=== PATIENT | female | born 1995 | race Caucasian/White ===

== ENCOUNTER 2024-01-24 06:35 | Outpatient (OUT) | payer SELFPAY ==
[2024-01-25 06:10] LABS: HBsAg Screen Negative (Negative); HIV Ab/p24 Ag Screen Non Reactive (Non Reactive); Hep B Core Ab, Tot Negative (Negative); Hepatitis B Surf Ab Quant <3.5 mIU/mL (Immunity>10)
[2024-01-26 17:09] LABS: QuantiFERON-TB Gold Plus Negative (Negative)
== END 2024-01-24 06:36 | disposition home or self-care (01) ==
LOC: LAB 06:35
PROVIDERS: PCP Family Medicine
DX: K50.80 Crohn's disease of both small and large intestine without complications (principal)
CPT/HCPCS: 36415; 86317; 86480; 86704; 87340; 87389

== ENCOUNTER 2024-12-24 09:32 | Outpatient (OUT) | payer SELFPAY ==
--- OUTSIDE RECORDS SUMMARY | 2024-12-24 09:34 | XMS_ITS | Encounter Summary ---
Author Organization [employer] Address [id number] [address] [place] [address] Care Team Providers Care Tape Librarian Name Role Phone No Pcp, No Pcp Primary Care Provider Unavailabl e Encounter Details Date Type Department Care Team (Late st Contact Info) Description 12/09/2021 Telephone [facility] [address] [place] [phone] Gracie Davis Social History Tobacco Use Types Packs/Day Years Used Date Smoking Tobacco: Never Smokeless Tobacco: Never Alcohol Use Standard Drinks/Week Comments Yes 0 (1 standard drink = 0.6 oz pure alcohol) socially 2-3 drinks on occasion Childcare Answer Date Recorded Childcare Unknown 12/04/2018 Employment Answer Date Recorded Employment Unknown 12/04/2018 Purpose - Life Answer Date Recorded Purpose and direction in life Unknown Comments No Sex and Gender Information Value Date Recorded Sex Assigned at Not on file Legal Sex Female 7:28 PM EDT Gender Identity Not on file Sexual Orientation Not on file COVID-19 Exposure Response Date Recorded In the last month, have you been in contact with someone who was confirmed or suspected to have Coronavirus / COVID-19? No / Unsure 12/09/2021 1:00 PM EDT documented as of this encounter Plan of Treatment Not on file documented as of this encounter Visit Diagnoses Not on filedocumented in this encounter Care Teams Tape Librarian Relationship Specialty Start Date End Date No Pcp, [place] [address] PCP - General Family Medicine 03/25/19 documented as of this encounter
--- OUTSIDE RECORDS SUMMARY | 2024-12-24 09:34 | XMS_ITS | Clinical Summary ---
Author Organization [facility] Address [address] [place] [address] Care Team Providers Care Prosthetic Lab Technician Name Role Phone Yohana Waldron MD Unavailable [phone] Social History Tobacco Use Types Packs/Day Years Used Date Smoking Tobacco: Never Assessed Comments Unknown Sex and Gender Information Value Date Recorded Sex Assigned at Not on file Legal Sex Female 8:00 PM EDT Gender Identity Not on file Sexual Orientation Not on file Last Filed Vital Signs Vital Sign Reading Time Taken Comments Blood Pressure 118/84 04/10/2019 12:00 PM EDT Pulse - - Temperature - - Respiratory Rate - - Oxygen Saturation - - Inhaled Oxygen Concentration - - Weight 59.9 kg (132 lb) 04/10/2019 12:00 PM EDT Height 153.7 cm (5' 0.5 ) 04/10/2019 12:00 PM ED T Body Mass Index 25.36 04/10/2019 12:00 PM EDT Plan of Treatment Not on file Care Teams Prosthetic Lab Technician Relationship Specialty Start Date End Date Yohana Waldron MD [address] [place] [address] PCP - External PCP Family Medicine 12/03/22
--- OUTSIDE RECORDS SUMMARY | 2024-12-24 09:34 | XMS_ITS | Encounter Summary ---
Author Organization [facility] Address [address] [place] [address] Care Team Providers Care Cyberathlete Name Role Phone Yohana Waldron MD Primary Care Provider + [phone] Encounter Details Date Type Department Care Team (Late Contact Info) Description 10/23/2020 Abstract [facility] [address] [place] [phone] Nehemias Mitchell MD Social History Tobacco Use Types Packs/Day Years Used Date Smoking Tobacco: Never Smokeless Tobacco: Never Alcohol Use Standard Drinks/Week Comments Yes 0 (1 standard drink = 0.6 oz pur e alcohol) rarely Comments No Sex and Gender Information Value Date Recorded Sex Assigned at Not on file Legal Sex Female 1:22 PM EDT Gender Identity Not on file Sexual Orientation Not on file COVID-19 Exposure Response Date Recorded In the last month, have you been in contact with someone who was confirmed or suspected to have Coronavirus / COVID-19? No / Unsure 10/09/2020 1:47 PM EDT documented as of this encounter Plan of Treatment Upcoming Encounters Date Type Department Care Team (Late Contact Info) Description 01/10/2025 9:15 AM EDT Office Visit [facility] Gastroenterology [address] [place] [address] [place] [phone] Geo Morales MD [address] [id number] RTC 4/5 months documented as of this encounter Visit Diagnoses Not on filedocumented in this encounter Care Teams Cyberathlete Relationship Specialty Start Date End Date Yohana Waldron MD [address] [place] [address] PCP - General Family Medicine 04/17/20 documented as of this encounter
--- OUTSIDE RECORDS SUMMARY | 2024-12-24 09:34 | XMS_ITS | Clinical Summary ---
Author Organization [employer] Address [facility] [id number] [address] [place] [address] Care Team Providers Care Sde Name Role Phone No Pcp, No Pcp Primary Care Provider Unavailabl e Allergies Active Allergy Reactions Criticality Noted Date Comments Adalimumab 01/22/2021 Penicillins 07/26/2016 Medications inFLIXimab-dyyb (INFLECTRA) 100 mg injection Infuse 5 mg/kg into a venous catheter once. Active clobetasoL (TEMOVATE) 0.05 % creamIndication s:Vulvar itching Apply 1 application topically in the morning and 1 application before bedtime. 30 g 2 Active Additional Information Patient not taking.Reported on 08/11/2023 clindamycin (CLEOCIN T) 1 % lotion APPLY TOPICALLY TO THE AFFECTED AREA DAILY NEEDED FOR IRRITATION OR RASH 3 Active clobetasoL (TEMOVATE) 0.05 % external solution MIX ENTIRE BOTTLE WITH 1LB JAR OF CERAVE AND APPLY TO AFFECTED AREAS TWICE DAILY NEEDED FOR ITCH 3 Active metroNIDAZOLE (Metrogel VaginaL) 0.75 % (37.5mg/5 gram) vaginal gelIndications: BV (bacterial vaginosis) Insert 1 applicator into the vagina in the morning. 5 g 4 Active Active Problems Problem Noted Date Diagnosed Date CC (Crohn's colitis), without complications 10/25 History of abnormal cervical Pap smear 9 Ulcerative colitis 12/04/2018 Overview (12/04/2018): Sees Dr. Daily Family History Medical History Relation Name Comments No Known Problems Father No Known Problems Mother Breast cancer Neg Hx Colon cancer Neg Hx Ovarian cancer Neg Hx Relation Name Status Comments Father Alive Mother Alive Social History Tobacco Use Types Packs/Day Years Used Date Smoking Tobacco: Never Smokeless Tobacco: Never Tobacco Cessation:Counseling Given: Not Answered Alcohol Use Standard Drinks/Week Comments Yes 0 (1 standard drink = 0.6 oz pure alcohol) socially 2-3 drinks on occasion PHQ-2 Answer Date Recorded Total Score 0 01/13/2023 Childcare Answer Date Recorded Childcare Unknown 12/04/2018 Employment Answer Date Recorded Employment Unknown 12/04/2018 Hunger Screening Answer Date Recorded Within the past 12 months we worried whether our food would run out before we got money to buy more. Never True 08/11/2023 Within the past 12 months th e food we bought just didn't last and we didn't have money to get more. Never True 08/11/2023 Purpose - Life Answer Date Recorded Purpose and direction in life Unknown Comments No Sex and Gender Information Value Date Recorded Sex Assigned at Not on file Legal Sex Female 7:28 PM EDT Gender Identity Not on file Sexual Orientation Not on file Last Filed Vital Signs Vital Sign Reading Time Taken Comments Blood Pressure 116/68 09/28/2023 11:30 AM EDT Pulse 76 08/11/2023 2:51 PM EST Temperature - - Respiratory Rate 16 12/29/2020 9:34 AM EDT Oxygen Saturation 98% 08/11/2023 2:51 PM EST Inhaled Oxygen Concentration - - Weight 61.7 kg (136 lb) 09/28/2023 11:30 AM EDT Height 149.9 cm (4' 11 ) 09/28/2023 11:30 AM EDT Body Mass Index 27.47 09/28/2023 11:30 AM EDT Plan of Treatment Health Maintenance Due Date Last Done Comments DTaP,Tdap and Td Vaccines (1 - Tdap) 2016 Depression Screening 01/14/2024 01/13/2023 Adult BMI Screening 09/27/2024 09/28/2023 Tobacco Screening 09/27/2024 09/28/2023 Influenza Vaccine 02/24/2025 Pap Smear 01/13/2026 01/13/2023, 0701/2022, 12/29/2020, Additional history exists Medical Devices Not on file Procedures Procedure Name Priority Date/Time Associated Diagnosis Comments PAP SMEAR Routine 01/13/2023 4:40 AM EDT Screening for cervical cancer from Last 3 Months or Most Recently Relevant to Health Maintenance Results * Pap Smear (01/13/2023 4:40 AM EDT) 01/13/2023 4:40 AM EDT 01/13/2023 4:41 AM EDT Narrative COPATH - 01/16/2023 12:00 PM EDT [facility] [address] [place] [address] Gynecologic Cytology Consultation Patient Name:TOY FRITZ:1995 (Age: 27)Gender:FTaken:01/13/2023Reported:01/16/2023hysician(s):JORDAN Fitch ([phone])Copy To: Rec. #:[id number]: #[id number] Final Cytologic Interpretation ThinPrep Pap Test (Cervical): Satisfactory for evaluation. A transformation zone component is present. NEGATIVE FOR INTRAEPITHELIAL LESION OR MALIGNANCY. /01/16/2023 Interpretation [place] [address], License number: [id number]. Electronically Signed Out By Karlee CHEN(ASCP) Date of Last Menstrual Period: (None Given) Other Clinical Conditions: Z12.4 Screening for malignant neoplasm of cervix Source of Specimen ThinPrep Pap Test (Cervical) Thin Prep Pap (BACK ORDER CLERK) Fee Code(s): G0145 us Vonnie ORTEGA PATHOLOGY/CYTOLOGY ORDER KELSEY Final Result COPATH from Last 3 Months or Most Recently Relevant to Health Maintenance Insurance [employer] Care Teams Sde Relationship Specialty Start Date End Date No Pcp, [place] [address] PCP - General Family Medicine 03/25/19
[2024-12-24 10:07] LABS: Hematocrit 40.8 % (36.0-48.0); Hemoglobin 13.9 g/dL (12.0-16.0); Red Blood Count 4.54 10^6/uL (4.20-5.40); White Blood Count 4.4 10^3/uL (4.0-11.0)
[2024-12-24 10:08] LABS: Immature Granulocytes Abs Auto 0.00 10^3/uL (0.00-0.03); Immature Granulocytes Pct Auto 0.0 % (0.0-0.5); Lymphocytes Absolute Auto 1.6 10^3/uL (1.2-3.8); Mean Corpuscular HGB Conc 34.1 g/dL (29.9-35.2); Mean Corpuscular Hemoglobin 30.6 pg (26.7-34.0); Mean Corpuscular Volume 89.9 fL (81.0-99.0); Platelet Count 308 10^3/uL (150-450)
[2024-12-24 10:52] LABS: Alanine Aminotransferase 16 U/L (14-59); Albumin Globulin Ratio 0.9; Albumin Level 3.6 g/dL (3.4-5.0); Alkaline Phosphatase 63 U/L (46-116); Anion Gap 10.5; Aspartate Amino Transferase 18 U/L (15-37); Blood Urea Nitrogen 15.0 mg/dL (7.0-18.0); Carbon Dioxide 29.4 mmol/L (21.0-32.0); Chloride 104 mmol/L (98-107); Estimated GFR (African America >60 (>=60 mL/min/1.73m^2); Estimated GFR (Non-African Ame >60 (>=60 mL/min/1.73m^2); Globulin 4.2 g/dL; Potassium 3.9 mmol/L (3.5-5.1); Sodium 140 mmol/L (136-145); Total Protein 7.8 g/dL (6.4-8.2)
== END 2024-12-24 09:33 | disposition home or self-care (01) ==
LOC: LAB 09:32
PROVIDERS: PCP Family Medicine; Visit Provider Internal Medicine Gastroenterology
DX: K50.80 Crohn's disease of both small and large intestine without complications (principal); R63.4 Abnormal weight loss
CPT/HCPCS: 36415; 80051; 80076; 82565; 84520; 85025

== ENCOUNTER 2025-03-21 09:03 | Outpatient (OUT) | payer SELFPAY ==
--- OUTSIDE RECORDS SUMMARY | 2025-03-21 09:08 | XMS_ITS | Clinical Summary ---
Author Organization [facility] Address [address] [place] [address] Care Team Providers Care Product Info Specialist Name Role Phone Yohana Waldron MD Unavailable [phone] Social History Tobacco Use Types Packs/Day Years [...] of Treatment Not on file Care Teams Product Info Specialist Relationship Specialty Start Date End Date Yohana Waldron MD [address] [place] [address] PCP - External PCP Family Medicine 12/03/22
--- OUTSIDE RECORDS SUMMARY | 2025-03-21 09:08 | XMS_ITS | Clinical Summary ---
Author Organization [employer] Address [facility] [id number] [address] [place] [address] Care Team Providers Care V Belt Mold Assembler And Curer Name Role Phone No Pcp, No Pcp [...] Narrative COPATH - 01/16/2023 12:00 PM EDT [facility] [address] [place] [address] Gynecologic Cytology Consultation Patient Name:TOY FRITZ:1995 (Age: 27)Gender:FTaken:01/13/2023Reported:01/16/2023hysician(s):JORDAN Fitch ([phone])Copy To: Rec. #:[id number]: #[id number] Final Cytologic Interpretation ThinPrep Pap Test (Cervical): Satisfactory for evaluation. A transformation zone component is present. NEGATIVE FOR INTRAEPITHELIAL LESION OR MALIGNANCY. /01/16/2023 Interpretation [place] [address], License number: [id number]. Electronically Signed Out By Karlee CHEN(ASCP) Date of Last Menstrual Period: (None Given) Other Clinical Conditions: Z12.4 Screening for malignant neoplasm of cervix Source of Specimen ThinPrep Pap Test (Cervical) Thin Prep Pap (SQL SERVER BI DEVELOPER) Fee Code(s): G0145 us Vonnie ORTEGA PATHOLOGY/CYTOLOGY ORDER KELSEY Final Result COPATH from Last 3 Months or Most Recently Relevant to Health Maintenance Insurance [employer] Care Teams V Belt Mold Assembler And Curer Relationship Specialty Start Date End Date No Pcp, [place] [address] PCP - General Family Medicine 03/25/19
--- OUTSIDE RECORDS SUMMARY | 2025-03-21 09:08 | XMS_ITS | Encounter Summary ---
Author Organization [facility] Address [address] [facility], [address] [place] [address] Care Team Providers Care Stacker Straightener Name Role Phone Yohana Waldron MD Primary Care Provider + [phone] Encounter Details Date Type Department Care Team (Late st Contact Info) Description 10/23/2020 Abstract [facility] [address] [facility] [address] [place] [address] Nehemias Mitchell MD Social History Tobacco Use Types Packs/Day Years Used Date Smoking Tobacco: Never Smokeless Tobacco: Never Alcohol Use Standard Drinks/Week Comments Yes 0 (1 standard drink = 0.6 oz pur e alcohol) rarely Comments No Sex and Gender Information Value Date Recorded Sex Assigned at Female 01/07/2025 10:40 AM EDT Legal Sex Female 1:22 PM EDT Gender Identity Female 01/07/2025 10:40 AM EDT Sexual Orientation Not on file COVID-19 Exposure [...] on filedocumented in this encounter Care Teams Stacker Straightener Relationship Specialty Start Date End Date Yohana Waldron MD [address] [place] [address] PCP - General Family Medicine 04/17/20 documented as of this encounter
--- OUTSIDE RECORDS SUMMARY | 2025-03-21 09:08 | XMS_ITS | Patient Health Record ---
Author Organization [facility] Address [address] [place] [address] Care Team Providers Care Video News Editor Name Role Phone Yohana Waldron Primary Care Provider Allergies Allergen (clinical drug ingredient) Drug/Non Drug Allergy documented on EMR Reaction Allergy Type Onset Date Status Humira Injection site reaction Drug Allergy Active Penicillin G Benzathine Unknown Drug Allergy Active Reason For Referral No Information Medications Medication SIG (Take, Route, Frequency, Duration) Notes Start Date End Date Status Inflectra 100 MG as directed Intravenous Active prednisoLONE 15 MG/5ML 20 ml daily for 3 days then 10 ml daily for 3 days then 5 ml daily for 3 days Orally; Duration: 9 days 08/18/2022 Not-Taking Social History Tobacco Use: Social History Observation Description Date Details (start date - stop date) Never Smoker NA - NA Tobacco Use/Smoking Question Answer Notes Patient is a nonsmoker Alcohol Screen (Audit-C) Question Answer Notes Did you have a drink contain ing alcohol in the past year? Yes How often did you have 6 or more drinks on one occasion in the past year? Never (0 point) How many drinks did you have on a typical day when you were drinking in the past year? 5 or 6 drinks (2 points) How often did you have a dri nk containing alcohol in the past year? Weekly (3 points) Points 5 Interpretation Positive Section Notes: Non-smoker, occasional ETOH Non-smoker, occasional ETOH Non-smoker, occasional ETOH Non-smoker, occasional ETOH Problems Problem Type SNOMED Code ICD Code Onset Dates Problem Status W/U Status Risk Notes Problem Ulcerative colitis (04361084) Ulcerative colitis without complications, unspecified location (K51.90) Active confirmed Plan Of Treatment No Information Insurance Providers Payer Name Payer Address Payer Phone Subscriber Number Group Number Insured Name Patient Relationship to Insured Coverage Start Date Coverage End Date [employer] [address] [address] [place] [address] [id number] Joanie Aguilar Alannah Child - Insured does not have Financial Responsibility (includes legally adopted child) 3 MMO [address] [place], [place] [id number] Sammy Phillips Natural Child - Insured does not have Financial Responsibility (includes legally adopted child) 3 Medical (General) History Medical History History ICD Code Crohn's Colitis Ulcerative Colitis Allergy to Dust Mites and tree pollen Surgical History Surgery Date(Month/Year) Colonoscopy - Dr. Daily 2016 Colonoscopy and EGD - Dr. Killian Colonoscopy - Dr. Killian 03/11/22 wisdom teeth 2017
--- OUTSIDE RECORDS SUMMARY | 2025-03-21 09:08 | XMS_ITS | Encounter Summary ---
Author Organization [facility] Address [address] [facility], [address] [place] [address] Care Team Providers Care Digital Measurement Advisor Name Role Phone Yohana Waldron MD Primary Care Provider + [phone] Encounter Details Date Type Department Care Team (Late st Contact Info) Description 03/03/2025 Abstract [facility] [place] [facility] [address] [facility] [address] [place] [phone] Geo Morales MD [address] [facility] [address] [place] [address] Social History Tobacco Use Types Packs/Day Years [...] AM EDT Sexual Orientation Not on file documented as of this encounter Plan of Treatment Not on file documented as of this encounter Visit Diagnoses Not on filedocumented in this encounter Care Teams Digital Measurement Advisor Relationship Specialty Start Date End Date Yohana Waldron MD [address] [place] [address] PCP - General Family Medicine 04/17/20 documented as of this encounter
--- OUTSIDE RECORDS SUMMARY | 2025-03-21 09:08 | XMS_ITS | Encounter Summary ---
Author Organization [employer] Address [id number] [address] [place] [address] Care Team Providers Care Plant Taxonomy Teacher Name Role Phone No Pcp, No Pcp Primary Care Provider Unavailabl e Encounter Details Date Type Department Care Team (Late st Contact Info) Description 12/09/2021 Telephone [facility] [address] [place] [phone] Gracie Davis Social History Tobacco Use Types [...] on filedocumented in this encounter Care Teams Plant Taxonomy Teacher Relationship Specialty Start Date End Date No Pcp, [place] [address] PCP - General Family Medicine 03/25/19 documented as of this encounter
--- OUTSIDE RECORDS SUMMARY | 2025-03-21 09:08 | XMS_ITS | Clinical Summary ---
Author Organization [facility] Address [address], [address] [place] [address] Care Team Providers Care Fiscal Specialist Name Role Phone Yohana Waldron MD Primary Care Provider + [phone] Allergies Active Allergy Reactions Criticality Noted Date Comments Adalimumab Other (See Comments) 01/22/2021 Redness swelling itching warm at injection site spreading beyond site Penicillins Hives 07/26/2016 Medications inFLIXimab-dyyb (INFLECTRA) 100 MG SOLRIndications: Crohn's disease of both small and large intestine without complication (HCC) INFUSE 5MG/KG (315MG) INTRAVENOUSLY EVERY 8 WEEKS 4 each 5 02/16/20 23 Active inFLIXimab (REMICADE) 100 MG injection Infuse 30 mLs intravenously See Admin Instructions Every 8 weeks 1 each 4 12/02/19 24 Active Active Problems Patient Care Coordination No te Formatting of this note migh t be different from the original. DR. MITCHELL GI Problem Noted Date Diagnosed Date Weight loss 07/25/2024 Crohn's disease of both smal l and large intestine without complication 07/25/2024 IUD (intrauterine device) in place 12/31/2021 Overview (03/11/2022): Kyleena inserted 12/04/18 by Vonnie Farrell, DIRECTOR OF CATH LAB CC (Crohn's colitis), without complications 10/25 Atypical squamous cell ontiveros es of undetermined significance (ASCUS) on cervical cytology with positive 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 papilloma virus (HPV) 02/05/2019 Ulcerative colitis 12/04/2018 Overview (04/17/2020): Sees Dr. Daily Encounters Date Type Department Care Team Description 03/03/2025 Abstract [facility] [address] [place] [address] Geo Morales MD 03/03/2025 Abstract [facility] [address] [place], [place] [address]e [facility] [address] [place] [address] Geo Morales MD 02/04/2025 Abstract [facility] [address] [place], [place] [address] [address] [phone] Geo Morales MD 01/21/2025 Abstract [facility] [address] [place] [phone] Geo Morales MD 01/10/2025 9:15 AM EDT Office Visit [facility] [address] [phone] Geo Morales MD Crohn's disease of both small and large intestine without complication (HCC) (Primary Dx); Weight loss; Atypical squamous cell changes of undetermined significance (ASCUS) on cervical cytology with positive 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 papilloma virus (HPV); Ulcerative colitis with complication, unspecified location (HCC); CC (Crohn's colitis), without complications (HCC) 01/07/2025 Abstract [facility] [address] [place] [phone] Geo Morales MD 01/02/2025 Abstract [facility] [address] [place] [phone] Meera Lazar PA-C from Last 3 Months Family History * Patient is adopted Medical History Relation Name Comments No Known Problems Father No Known Problems Mother Relation Name Status Comments Father Alive Mother [...] AM EDT Sexual Orientation Not on file Last Filed Vital Signs Vital Sign Reading Time Taken Comments Blood Pressure 116/73 01/10/2025 9:35 AM EDT Pulse 68 01/10/2025 9:35 AM EDT Temperature 36.4 C (97.5 F) 07/25/2024 3:33 PM EST Respiratory Rate 16 10/20/2023 9:59 AM EDT Oxygen Saturation 99% 10/20/2023 9:59 AM EDT Inhaled Oxygen Concentration - - Weight 60.8 kg (134 lb) 01/10/2025 9:35 AM EDT Height 149.9 cm (4' 11 ) 10/24/2023 3:03 PM EDT Body Mass Index 27.06 10/24/2023 3:03 PM EDT Plan of Treatment Health Maintenance Due Date Last Done Comments Depression Screen 2009 Varicella vaccine (1 of 2 - 13+ 2-dose series) 2010 HIV screen 2012 Hepatitis C screen 10/31/2015 DTaP/Tdap/Td vaccine (1 - Tdap) 2016 Hepatitis B vaccine (1 of 3 - 19+ 3-dose series) 2016 Pap smear 2018 Colonoscopy 10/05/2024 10/06/2023, 09/24, 03/11/2022, Additional history exists Colorectal Cancer Screen 10/05/2024 Flu vaccine (#1) 01/24/2025 COVID-19 Vaccine ( season) 2025 Sigmoidoscopy/CT colonography 2042 11/19/2020 HPV vaccine (No Doses Required) Completed Hepatitis A vaccine Aged Out No longe r eligible based on patient's age to complete this topic Hib vaccine Aged Out No longer eligi ble based on patient's age to complete this topic Meningococcal (ACWY) vaccine Aged Out No longer eligible based on patient's age to complete this topic Meningococcal B vaccine Aged Out No l onger eligible based on patient's age to complete this topic Pneumococcal 0-49 years Vaccine Aged Out No longer eligible based on patient's age to complete this topic Polio vaccine Aged Out No longer elig ible based on patient's age to complete this topic Procedures Procedure Name Priority Date/Time Associated Diagnosis Comments COLONOSCOPY W/ OR W/O BIOPSY Routine 10/06/2023 Crohn's disease of both small and large intestine without complication (HCC) from Last 3 Months or Most Recently Relevant to Health Maintenance Results * COLONOSCOPY W/ OR W/O BIOPSY (10/06/2023) Impressions Vicki Andersen MA - 10/06/2023 COLONOSCOPY DATE OF PROCEDURE: 10/06/2023 SURGEON: Nehemias Mitchell MD PLUMBER'S HELPER: None PREOPERATIVE DIAGNOSIS: Patient has history of Crohn's disease being treated for Remicade. Procedure performed to evaluate disease activity POSTOPERATIVE DIAGNOSIS: The disease appears to be in remission. Appears to have mild edema of the mucosa in the sigmoid colon without ulceration or mucosal friability OPERATION: Total colonoscopy, biopsies ANESTHESIA: MAC ESTIMATED BLOOD LOSS: None COMPLICATIONS: None SPECIMENS: Was Obtained: Biopsies from the right colon and transverse colon, biopsies from the sigmoid colon evaluate inflammatory bowel disease activity/Crohn's colitis HISTORY: The patient is a 27 y.o. year old female with history of above preop diagnosis. I recommended colonoscopy with possible biopsy or polypectomy and I explained the risk, benefits, expected outcome, and alternatives to the procedure. Risks included but are not limited to bleeding, infection, respiratory distress, hypotension, and perforation of the colon and possibility of missing a lesion. The patient understands and is in agreement. PROCEDURE: The patient's SPO2 remained above 90% throughout the procedure. Digital rectal exam was normal. The colonoscope was inserted through the anus into the rectum and advanced under direct vision to the cecum without difficulty. Terminal ileum was examined for approximately 2 inches. The prep was adequate. Findings: Terminal ileum: normal, examined for up to 3 inches. From anus up to the cecum examined. Mucosa in the right colon, transverse colon appears normal. However in the sigmoid colon there is edema of the mucosa noted. Polyp may be present friability, ulceration, erosions seen. Biopsies taken from the sigmoid colon as well. Has anal skin tags. Withdrawal Time was (minutes): 10 The colon was decompressed and the scope was removed. The patient tolerated the procedure without unusual events. During the procedure, the patient's blood pressure, pulse and oxygen saturation remained stable and documented. No unusual events occurred during the procedure. Patient was transferred to recovery room and will be discharged when criteria is met. Recommendations/Plan: 1. F/U Biopsies 2. F/U In Office as instructed 3. Discussed with the family 4. High fiber diet 5. Precautions to avoid constipation IBD surveillance colonoscopy basing on the symptoms -- Diagnosis -- A. RIGHT AND TRANSVERSE COLON, BIOPSIES: Minimal chronic inactive colitis. B. SIGMOID COLON, BIOPSY: Minimal chronic inactive colitis. Vincent Dela Cruz SENIOR VALIDATION ENGINEER - [employer]IM TURNING FINISHER GENERAL SURGICAL ORDERABLES Final Result from Last 3 Months or Most Recently Relevant to Health Maintenance Care Teams Fiscal Specialist Relationship Specialty Start Date End Date Yohana Waldron MD [facility] [place] [id number] PCP - General Family Medicine 04/17/20
--- OUTSIDE RECORDS SUMMARY | 2025-03-21 09:09 | XMS_ITS | CCD ---
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 Role Phone WALDRON, YOHANA A Unavailable Unavailable Rodriguez, Nelson L Unavailable Unavailable Rodriguez, Nelson L Unavailable Unavailable Waldron, Yohana A Primary Care Provider Waldron, Yohana A Primary Care Provider Waldron, Yohana A Primary Care Provider Waldron, Yohana A Primary Care Provider Waldron, Yohana A Primary Care Provider Waldron, Yohana A Primary Care Provider [phone] ANGELA YANEZ Attending Unavailable WALDRON, YOHANA A Referring Unavailable NO PCP, NO PCP Primary Care Unavailable Waldron, Yohana A Primary Care Provider [phone] VONNIE MALONEY Referring Unavailable NO PCP, NO PCP Primary Care Unavailable VONNIE MALONEY Referring Unavailable NO PCP, NO PCP Primary Care Unavailable PANGULUR, CATRACHITA N Referring Unavailable WALDRON, YOHANA A Primary Care Unavailable PANGULUR, CATRACHITA N Referring Unavailable WALDRON, YOHANA A Primary Care Unavailable PANGULUR, CATRACHITA N Referring Unavailable WALDRON, YOHANA A Primary Care Unavailable PANGULUR, CATRACHITA N Referring Unavailable WALDRON, YOHANA A Primary Care Unavailable PANGULUR, CATRACHITA N Referring Unavailable WALDRON, YOHANA A Primary Care Unavailable PANGULUR, CATRACHITA N Referring Unavailable WALDRON, YOHANA A Primary Care Unavailable PANGULUR, CATRACHITA N Referring Unavailable WALDRON, YOHANA A Primary Care Unavailable PANGULUR, CATRACHITA N Referring Unavailable WALDRON, YOHANA A Primary Care Unavailable PANGULUR, CATRACHITA N Referring Unavailable YOHANA WALDRON A Primary Care Unavailable CATRACHITA MITCHELL N Admitting Unavailable JEMMARCATRACHITA Attending Unavailable JOLENE WALDRONHER A Primary Care Unavailable FRANKIGUHARSHARCATRACHITA N Referring Unavailable WALDRON, YOHANA A Primary Care Unavailable WALDRON, YOHANA A Primary Care Unavailable WALDRON, YOHANA A Primary Care Unavailable No Pcp, No Pcp Primary Care Provider Unavailabl e Allergies Allergy Classification Reported Allergen(s) Allergy Type Date of Onset Reaction(s) Facility adalimumab (1 source) adalimumab Drug Allergy 1 RECESS. Penicillins (antibiotic) (2 sources) Penicillins Drug Allergy 7 RECESS. (8 sources) Penicillins; Translations: [PENICILLINS] Propensity to adverse reactions to drug 7 [employer] (16 sources) adalimumab; Translations: [ADALIMUMAB] Drug Allergy 1 Other (See Comments) RECESS. (9 sources) Penicillins Propensity to adverse reactions to drug 7 [employer] Work Phone: (1 source) Shellfish Propensity to adverse reactions to drug 3 [employer], [employer] Medications Current Medications Medication Drug Class(es) Dates Sig (Normalized) Sig (Original) bisacodyl 5 mg delayed release oral tablet (3 sources) Stimulant Laxative Start: 08-11-2023 bisacodyl 5 MG EC tablet Indications: Crohn's disease of both small and large intestine without complication (HCC) Please follow instructions given to you by your provider. 4 tablet 0 08/11/2023 Active Start: 04-17-2020 bisacodyl (BIS ACODYL) 5 MG EC tablet TAKE 2 TABS THE DAY BEFORE COLONOSCOPY DIRECTED ON BOWEL PREP INSTRUCTIONS GIVEN BY PHYSICIAN OFFICE 2 tablet 0 04/17/2020 Active calcium chloride 0.0014 meq/ ml / potassium chloride 0.004 meq/ml / sodium chloride 0.103 meq/ml / sodium lactate 0.028 meq/ml injectable solution (2 sources) Start: 03-11-2022 lactated ringe rs infusion Start: 05-01-2020 lactated ringe rs infusion clindamycin 10 mg/ml topical lotion (6 sources) Lincosamide Antibacterial Start: 12-19-2022 clindamycin (CLEOCIN T) 1 % lotion APPLY TOPICALLY TO THE AFFECTED AREA DAILY NEEDED FOR IRRITATION OR RASH 12/19/2022 Active clobetasol propionate 0.5 mg/ml topical solution (11 sources) Corticosteroid Start: 12-19-2022 clobetasoL (TEMOVATE) 0.05 % external solution MIX ENTIRE BOTTLE WITH 1LB JAR OF CERAVE AND APPLY TO AFFECTED AREAS TWICE DAILY NEEDED FOR ITCH 12/19/2022 Active Start: 12-31-2021 clobetasoL (TE MOVATE) 0.05 % cream Indications: Vulvar itching Apply 1 application topically in the morning and 1 application before bedtime. 30 g 12/31/2021 Active 2 ml fentaNYL 0.05 mg/ml injection (1 source) Opioid Agonist Start: 03-11-2022 fentaNYL (SUBL IMAZE) injection 25 mcg 1 ml hydrALAZINE hydrochloride 20 mg/ml injection (1 source) Arteriolar Vasodilator Start: 05-01-2020 hydrALAZINE (APRESOLINE) injection 5 mg 1 ml HYDROmorphone hydrochloride 1 mg/ml cartridge (1 source) Opioid Agonist Start: 03-11-2022 HYDROmorphone (DILAUDID) injection 0.5 mg inFLIXimab-dyyb 100 mg injection (13 sources) Tumor Necrosis Factor Duane Start: 02-15-2023 inFLIXimab-dyyb (INFLECTRA) 100 MG SOLR Indications: Crohn's disease of both small and large intestine without complication (HCC) INFUSE 5MG/KG (315MG) INTRAVENOUSLY EVERY 8 WEEKS 4 each 5 02/15/2023 Active Start: 01-19-2023 REMICADE 100 M G injection INFUSE 5MG/KG (315MG) INTO THE VEIN EVERY 8 WEEKS 0 01/19/2023 Active Start: 09-21-2022 INFLECTRA 100 MG SOLR INFUSE 5MG/KG (315MG) INTRAVENOUSLY EVERY 8 WEEKS 4 each 0 09/21/2022 Active Start: 12-14-2021 INFLECTRA 100 MG SOLR INFUSE 5MG/KG (315MG) INTRAVENOUSLY EVERY 8 WEEKS 4 each 3 12/14/2021 Active inFLIXimab-dyyb (INFLECTRA) 100 mg injection Infuse 5 mg/kg into a venous catheter once. Active 4 ml labetalol hydrochloride 5 mg/ml cartridge (1 source) beta-Adrenergic Duane Start: 05-01-2020 labetalol (NORMODYNE;TRANDATE) injection 5 mg levonorgestrel 0.442479 mg/hr intrauterine system (13 sources) Progestin, Progestin-containing Intrauterine Device Levonorgestrel (HU JAYLA) IUD 19.5 mg 1 each by IntraUTERine route once 0 Active End: 08-11-2023 levonorgestreL (KYLEENA) 17. 5 mcg/24 hrs (5 yrs) 19.5 mg intrauterine device IUD 1 each by intrauterine route once. 0 08/11/2023 Discontinued (Therapy completed) 10 ml lidocaine hydrochloride 10 mg/ml injection (2 sources) Antiarrhythmic, Amide Local Anesthetic Start: 03-11-2022 End: 03-11-2022 lidocaine PF 1 % injection 1 mL Start: 05-01-2020 End: 05-01-2020 lidocaine PF 1 % injection 1 mL mesalamine 500 mg extended release oral capsule (2 sources) Aminosalicylate Start: 05-25-2020 take 2 capsules by mouth four times daily mesalamine (PENTASA) 500 MG extended release capsule Take 2 capsules by mouth 4 times daily 120 capsule 2 05/25/2020 Active Start: 05-01-2020 take 2 capsules by m outh four times daily mesalamine (PENTASA) 500 MG extended release capsule Take 2 capsules by mouth 4 times daily 120 capsule 0 05/01/2020 Active 2 ml metoclopramide 5 mg/ml prefilled syringe (1 source) Dopamine-2 Receptor Antagonist Start: 03-11-2022 End: 03-11-2022 metoclopramide (REGLAN) injection 10 mg metroNIDAZOLE 0.0075 mg/mg vaginal gel (3 sources) Nitroimidazole Antimicrobial Start: 10-10-2023 metroNIDAZOLE (Metrogel VaginaL) 0.75 % (37.5mg/5 gram) vaginal gel Indications: BV (bacterial vaginosis) Insert 1 applicator into the vagina in the morning. 5 g 10/10/2023 Active Start: 09-30-2023 End: 10-07-2023 take 1 tablet by mouth in the morning, then take 1 tablet by mouth at bedtime metroNIDAZOLE (FLAGYL) 500 mg tablet Indications: BV (bacterial vaginosis) Take 1 tablet (500 mg total) by mouth in the morning and 1 tablet (500 mg total) before bedtime. Do all this for 7 days. 14 tablet 0 09/30/2023 10/07/2023 Active 2 ml ondansetron 2 mg/ml injection (2 sources) Serotonin-3 Receptor Antagonist Start: 03-11-2022 End: 03-11-2022 ondansetron (ZOFRAN) injection 4 mg Start: 05-01-2020 End: 05-01-2020 ondansetron (ZOFRAN) injecti on 4 mg polyethylene glycol 3350 [id number] mg powder for oral solution (3 sources) Osmotic Laxative Start: 08-11-2023 polyethylene glycol (GLYCOLAX) 17 GM/SCOOP powder Indications: Crohn's disease of both small and large intestine without complication (HCC) Please follow instructions provided to you by your provider. 238 g 0 08/11/2023 Active Start: 04-17-2020 polyethylene g lycol (MIRALAX) 17 GM/SCOOP powder Use as Directed per instructions provided by physician office. 238 g 0 04/17/2020 Active 1 ml promethazine hydrochloride 25 mg/ml injection (1 source) Phenothiazine Start: 05-01-2020 End: 05-01-2020 promethazine (PHENERGAN) injection 6.25 mg 5 ml sodium chloride 9 mg/ml injection (15 sources) Start: 03-11-2022 sodium chlorid e flush 0.9 % injection 5-40 mL Start: 03-11-2022 sodium chlorid e flush 0.9 % injection 5-40 mL Start: 03-11-2022 sodium chlorid e flush 0.9 % injection 5-40 mL Start: 03-11-2022 End: 03-11-2022 0.9 % sodium chloride infusi on Start: 01-14-2022 End: 01-14-2022 0.9 % sodium chloride infusi on Start: 03-05-2021 End: 03-05-2021 0.9 % sodium chloride infusi on Start: 02-05-2021 End: 02-05-2021 0.9 % sodium chloride infusi on Start: 10-23-2020 End: 10-23-2020 0.9 % sodium chloride bolus Start: 10-23-2020 End: 10-23-2020 sodium chloride flush 0.9 % injection 10 mL Start: 05-01-2020 End: 05-01-2020 0.9 % sodium chloride bolus Start: 05-01-2020 sodium chlorid e flush 0.9 % injection 10 mL Completed/Discontinued Medications Medication Drug Class(es) Dates Sig (Normalized) Sig (Original) acyclovir 0.05 mg/mg topical ointment (1 source) Herpesvirus Nucleoside Analog DNA Polymerase Inhibitor, Herpes Simplex Virus Nucleoside Analog DNA Polymerase Inhibitor, Herpes Zoster Virus Nucleoside Analog DNA Polymerase Inhibitor End: 05-01-2020 acyclovir (ZOVIRAX) 5 % ointment Apply topically every 4 hours Apply topically every 3 hours. 0 05/01/2020 Discontinued (Therapy completed) 1 ml diphenhydrAMINE hydrochloride 50 mg/ml cartridge (11 sources) Histamine-1 Receptor Antagonist Start: 08-25-2023 End: 08-25-2023 diphenhydrAMINE (BENADRYL) injection 25 mg Start: 11-04-2022 End: 11-04-2022 diphenhydrAMINE (BENADRYL) i njection 25 mg Start: 09-09-2022 End: 09-09-2022 diphenhydrAMINE (BENADRYL) i njection 25 mg Start: 07-15-2022 End: 07-15-2022 diphenhydrAMINE (BENADRYL) i njection 25 mg Start: 05-06-2022 End: 05-06-2022 diphenhydrAMINE (BENADRYL) i njection 25 mg Start: 03-11-2022 End: 03-11-2022 diphenhydrAMINE (BENADRYL) i njection 25 mg Start: 03-11-2022 End: 03-11-2022 diphenhydrAMINE (BENADRYL) i njection 12.5 mg Start: 01-14-2022 End: 01-14-2022 diphenhydrAMINE (BENADRYL) i njection 25 mg Start: 03-05-2021 End: 03-05-2021 diphenhydrAMINE (BENADRYL) i njection 25 mg Start: 02-05-2021 End: 02-05-2021 diphenhydrAMINE (BENADRYL) i njection 25 mg Start: 05-01-2020 End: 05-01-2020 diphenhydrAMINE (BENADRYL) i njection 12.5 mg gadoteridol (PROHANCE) injection 12 mL (1 source) Start: 10-23-2020 End: 10-23-2020 gadoteridol (PROHANCE) injection 12 mL glucagon (rdna) 1 mg injection (2 sources) Antihypoglycemic Agent Start: 10-23-2020 End: 10-23-2020 glucagon (rDNA) injection 0.3 mg Start: 10-23-2020 End: 10-23-2020 glucagon (rDNA) injection 0. 3 mg hydrocortisone 100 mg injection (9 sources) Corticosteroid Start: 08-25-2023 End: 08-25-2023 hydrocortisone sodium succinate PF (SOLU-CORTEF) injection 100 mg Start: 11-04-2022 End: 11-04-2022 hydrocortisone sodium succin ate PF (SOLU-CORTEF) injection 100 mg Start: 09-09-2022 End: 09-09-2022 hydrocortisone sodium succin ate PF (SOLU-CORTEF) injection 100 mg Start: 07-15-2022 End: 07-15-2022 hydrocortisone sodium succin ate PF (SOLU-CORTEF) injection 100 mg Start: 05-06-2022 End: 05-06-2022 hydrocortisone sodium succin ate PF (SOLU-CORTEF) injection 100 mg Start: 03-11-2022 End: 03-11-2022 hydrocortisone sodium succin ate PF (SOLU-CORTEF) injection 100 mg Start: 01-14-2022 End: 01-14-2022 hydrocortisone sodium succin ate PF (SOLU-CORTEF) injection 100 mg Start: 03-05-2021 End: 03-05-2021 hydrocortisone sodium succin ate PF (SOLU-CORTEF) injection 100 mg Start: 02-05-2021 End: 02-05-2021 hydrocortisone sodium succin ate PF (SOLU-CORTEF) injection 100 mg inFLIXimab (INFLECTRA) 300 m g in sodium chloride 0.9 % 250 mL IVPB (8 sources) Start: 11-04-2022 End: 11-04-2022 inFLIXimab (INFLECTRA) 300 m g in sodium chloride 0.9 % 250 mL IVPB Start: 09-09-2022 End: 09-09-2022 inFLIXimab (INFLECTRA) 300 m g in sodium chloride 0.9 % 250 mL IVPB Start: 07-15-2022 End: 07-15-2022 inFLIXimab (INFLECTRA) 300 m g in sodium chloride 0.9 % 250 mL IVPB Start: 05-06-2022 End: 05-06-2022 inFLIXimab (INFLECTRA) 300 m g in sodium chloride 0.9 % 250 mL IVPB Start: 03-11-2022 End: 03-11-2022 inFLIXimab (INFLECTRA) 300 m g in sodium chloride 0.9 % 250 mL IVPB Start: 01-14-2022 End: 01-14-2022 inFLIXimab (INFLECTRA) 300 m g in sodium chloride 0.9 % 250 mL IVPB Start: 03-05-2021 End: 03-05-2021 inFLIXimab (INFLECTRA) 300 m g in sodium chloride 0.9 % 250 mL IVPB Start: 02-05-2021 End: 02-05-2021 inFLIXimab (INFLECTRA) 300 m g in sodium chloride 0.9 % 250 mL IVPB inFLIXimab (REMICADE) 300 mg in sodium chloride 0.9 % 250 mL IVPB (1 source) Start: 08-25-2023 End: 08-25-2023 inFLIXimab (REMICADE) 300 mg in sodium chloride 0.9 % 250 mL IVPB Problems Active Problems Problem Classification Problem Date Documented Date Episodic/Chronic Allergic reactions (2 sources) Allergy to seafood; Translations: [Adverse reaction to food] Onset: 08-11-2023 08-11-2023 Episodic Immunizations and screening for infectious disease (2 sources) Encounter for screening for infections with a predominantly sexual mode of transmission; Translations: [Patient encounter status] Onset: 09-28-2023 09-28-2023 Episodic Other female genital disorders (1 source) Other specified noninflammatory disorders of vulva and perineum; Translations: [Other specified noninflammatory disorders of vulva and perineum] Onset: 09-28-2023 Episodic Other upper respiratory disease (1 source) Allergic rhinitis due to pollen; Translations: [Allergic rhinitis due to pollen] 08-11-2023 Chronic Other upper respiratory disease (1 source) Allergic rhinitis due to house dust mite; Translations: [Other allergic rhinitis] 08-11-2023 Chronic Regional enteritis and ulcerative colitis (20 sources) Ulcerative colitis; Translations: [Crohn's disease of small AND large intestines] Onset: 12-04-2018 04-17-2020 Chronic Unclassified (1 source) New Patient Onset: 08-11-2023 Past or Other Problems Problem Classification Problem Date Documented Date Episodic/Chronic Cancer of cervix (8 sources) Atypical squamous cells of undetermined significance on cervical Papanicolaou smear; Translations: [Atypical squamous cells of undetermined significance on cytologic smear of cervix (ASC-US)] Onset: 02-05-2019 04-17-2020 Episodic Contraceptive and procreative management (7 sources) Intrauterine contraceptive device in situ; Translations: [Presence of (intrauterine) contraceptive device] Onset: 12-31-2021 03-11-2022 Episodic E Codes: Adverse effects of medical drugs (1 source) Adverse reaction to drug; Translations: [Adverse effect of unspecified drugs, medicaments and biological substances, initial encounter] 08-11-2023 Episodic Inflammatory diseases of female pelvic organs (2 sources) Bacterial vaginosis; Translations: [Acute vaginitis] 09-30-2023 Episodic Mood disorders (5 sources) Mood disorders Onset: 01-13-2023 01-13-2023 Other female genital disorders (4 sources) Cervical atypism; Translations: [Atypical squamous cells of undetermined significance on cytologic smear of cervix (ASC-US)] Onset: 02-05-2019 04-17-2020 Episodic Other female genital disorders (5 sources) History of abnormal cervical Papanicolaou smear ; Translations: [Personal history of other diseases of the female genital tract] Onset: 02-05-2019 01-13-2023 Episodic Other female genital disorders (1 source) Lesion of vulva; Translations: [Other specified noninflammatory disorders of vulva and perineum] 09-28-2023 Episodic Unclassified (5 sources) Onset: 01-13-2023 01-13-2023 Results Test Name Value Interpretation Reference Range Facility CBC with Diffon 10-20-2023 Abs. Basophil 0.00 k/uL Normal 0.0-0.2 [facility] Comment on above: Performed By: #### L IP, CP, CDP, SED #### [facility] [address] [place] [address] Heading Pinner: Sly Scott DO Abs.Neutrophil (Seg) 2.20 k/uL Normal 1.3-9.1 [facility] Comment on above: Performed By: #### L IP, CP, CDP, SED #### [facility] [address] [place] [address]. [place] [address] Heading Pinner: Sly Scott DO Basophils/100 WBC (Bld) 1 % Normal 0-2 [facility] Comment on above: Performed By: #### L IP, CP, CDP, SED #### [facility] [address] [place] [address]. [place] [address] Heading Pinner: Sly Scott DO Eosinophils (Bld) [#/Vol] 0.00 10*3/uL Normal 0.0-0.4 [facility] Comment on above: Performed By: #### L IP, CP, CDP, SED #### [facility] [address] [place] [id number] Heading Pinner: Sly Scott DO Eosinophils/100 WBC (Bld) 1 % Normal 0-4 [facility] Comment on above: Performed By: #### L IP, CP, CDP, SED #### [facility] [address] [place] [address]. [place] [address] Heading Pinner: Sly Scott DO Erythrocyte distribution width (RBC) [Ratio] 13.6 % Normal 11.5-14.9 [facility] Comment on above: Performed By: #### L IP, CP, CDP, SED #### [facility] [address] [place] [address]. [place] [address] Heading Pinner: Sly Scott DO Hematocrit (Bld) [Volume fraction] 41.1 % Normal 36-46 [facility] Comment on above: Performed By: #### L IP, CP, CDP, SED #### [facility] [address] [place] [address] Heading Pinner: Sly Scott DO Hemoglobin (Bld) [Mass/Vol] 14.1 g/dL Normal 12.0-16.0 [facility] Comment on above: Performed By: #### L IP, CP, CDP, SED #### [facility] [place] [address] Heading Pinner: Sly Scott DO Lymphocytes (Bld) [#/Vol] 1.10 10*3/uL Normal 1.0-4.8 [facility] Comment on above: Performed By: #### L IP, CP, CDP, SED #### [facility] [address] [place], [place] [address] [place] [address] Heading Pinner: Sly Scott DO Lymphocytes/100 WBC (Bld) 29 % Normal 24-44 [facility] Comment on above: Performed By: #### L IP, CP, CDP, SED #### [facility] [address] [place] [address]. [place] [address] Heading Pinner: Sly Scott DO MCH (RBC) [Entitic mass] 31.3 pg Normal 26-34 [facility] Comment on above: Performed By: #### L IP, CP, CDP, SED #### [facility] [address] [place] [address]. [place] [address] Heading Pinner: Sly Scott DO MCHC (RBC) [Mass/Vol] 34.3 g/dL Normal 31-37 [facility] Comment on above: Performed By: #### L IP, CP, CDP, SED #### [facility] [address] [place], [place] [address] [place] [address] Heading Pinner: Sly Scott DO MCV (RBC) [Entitic vol] 91.2 fL Normal 80-100 [facility] Comment on above: Performed By: #### L IP, CP, CDP, SED #### [facility] [address] [facility] [place] [address] Heading Pinner: Sly Scott DO Monocytes (Bld) [#/Vol] 0.50 10*3/uL Normal 0.1-1.3 [facility] Comment on above: Performed By: #### L IP, CP, CDP, SED #### [facility] [address] [facility] [place] [address] Heading Pinner: Sly Soctt DO Monocytes/100 WBC (Bld) 12 % High 1-7 [facility] Comment on above: Performed By: #### L IP, CP, CDP, SED #### [facility] [address] [place] [address]. [place] [address] Heading Pinner: Sly Scott DO Neutrophil (Seg) 57 % Normal 36-66 [facility] Comment on above: Performed By: #### L IP, CP, CDP, SED #### [facility] [facility] [place] [address] Heading Pinner: Sly Scott DO Platelet mean volume (Bld) [Entitic vol] 7.4 fL Normal 6.0-12.0 [facility] Comment on above: Performed By: #### L IP, CP, CDP, SED #### [facility] [facility] [place] [address] Heading Pinner: Sly Scott DO Platelets (Bld) [#/Vol] 307 10*3/uL Normal 150-450 [facility] Comment on above: Performed By: #### L IP, CP, CDP, SED #### [facility] [facility] [place] [address] Heading Pinner: Sly Scott DO RBC (Bld) [#/Vol] 4.50 10*6/uL Normal 4.0-5.2 [facility] Comment on above: Performed By: #### L IP, CP, CDP, SED #### [facility] [address] [place] [address] Heading Pinner: Sly Scott DO WBC (Bld) [#/Vol] 3.9 10*3/uL Normal 3.5-11.0 [facility] Comment on above: Performed By: #### L IP, CP, CDP, SED #### [facility] [address] [place] [address] Heading Pinner: Sly Scott DO Comp Metabolic Profon 2023 Albumin [Mass/Vol] 4.4 g/dL Normal 3.5-5.2 [facility] Comment on above: Performed By: #### L IP, CP, CDP, SED #### [facility] [place] [address] Heading Pinner: Sly Scott DO Alkaline Phos 73 U/L Normal 35-104 [facility] Comment on above: Performed By: #### L IP, CP, CDP, SED #### [facility] [place] [address] Heading Pinner: Sly Scott DO ALT [Catalytic activity/Vol] 28 U/L Normal 5-33 [facility] Comment on above: Performed By: #### L IP, CP, CDP, SED #### [facility] [place] [address] Heading Pinner: Sly Scott DO Anion gap [Moles/Vol] 10 mmol/L Normal 9-17 [facility] Comment on above: Performed By: #### L IP, CP, CDP, SED #### [facility] [address] [place] [address] Heading Pinner: Sly Scott DO AST [Catalytic activity/Vol] 35 U/L High <32 [facility] Comment on above: Performed By: #### L IP, CP, CDP, SED #### [facility] [address] [place] [address] Heading Pinner: Sly Scott DO Bilirubin [Mass/Vol] 0.4 mg/dL Normal 0.3-1.2 [facility] Comment on above: Performed By: #### L IP, CP, CDP, SED #### [facility] [place] [address] Heading Pinner: Sly Scott DO Calcium [Mass/Vol] 9.4 mg/dL Normal 8.6-10.4 [facility] Comment on above: Performed By: #### L IP, CP, CDP, SED #### [facility] [place] [address] Heading Pinner: Sly Scott DO Chloride [Moles/Vol] 103 mmol/L Normal 98-107 [facility] [facility] Comment on above: Performed By: #### L IP, CP, CDP, SED #### [facility] [address] [facility] [place] [address] Heading Pinner: Sly Scott DO CO2 [Moles/Vol] 26 mmol/L Normal 20-31 [facility] Comment on above: Performed By: #### L IP, CP, CDP, SED #### [facility] [place] [address] Heading Pinner: Sly Scott DO Creatinine [Mass/Vol] 0.6 mg/dL Normal 0.5-0.9 [facility] Comment on above: Performed By: #### L IP, CP, CDP, SED #### [facility] [address] [place] [address]. [place] [address] Heading Pinner: Sly Scott DO GFR/1.73 sq M.predicted among non-blacks MDRD (S/P/Bld) [Vol rate/Area] mL/min/{1.73_m2} Normal >60 [facility] Comment on above: Result Comment: These results are not intended for use in patients <18 years of age. eGFR results are calculated without a race factor using the 2020 CKD-EPI equation. Careful clinical correlation is recommended, particularly when comparing to results calculated using previous equations. The CKD-EPI equation is less accurate in patients with extremes of muscle mass, extra-renal metabolism of creatine, excessive creatine ingestion, or following therapy that affects renal tubular secretion. Performed By: #### L IP, CP, CDP, SED #### [facility] [address] [place] [address]. [place] [address] Heading Pinner: Sly Scott DO Glucose [Mass/Vol] 78 mg/dL Normal 70-99 [facility] Comment on above: Performed By: #### L IP, CP, CDP, SED #### [facility] [address] [place] [address]. [place] [address] Heading Pinner: Sly Scott DO Potassium [Moles/Vol] 4.1 mmol/L Normal 3.7-5.3 [facility] Comment on above: Performed By: #### L IP, CP, CDP, SED #### [facility] [address] [place] [address]. [place] [address] Heading Pinner: Sly Scott DO Protein [Mass/Vol] 7.8 g/dL Normal 6.4-8.3 [facility] Comment on above: Performed By: #### L IP, CP, CDP, SED #### [facility] [address] [place] [address]. [place] [address] Heading Pinner: Sly Scott DO Sodium [Moles/Vol] 139 mmol/L Normal 135-144 [facility] Comment on above: Performed By: #### L IP, CP, CDP, SED #### [facility] [address] [place] [address] Heading Pinner: Sly Scott DO Urea nitrogen [Mass/Vol] 18 mg/dL Normal 6-20 [facility] Comment on above: Performed By: #### L IP, CP, CDP, SED #### [facility] [address] [place] [address] Heading Pinner: Sly Scott DO Lipaseon 10-20-2023 Lipase [Catalytic activity/Vol] 33 U/L Normal 13-60 [facility] Comment on above: Performed By: #### L IP, CP, CDP, SED #### [facility] [address] [place] [address] Heading Pinner: Sly Scott DO Sedimentation Rateon 024 Sedimentation Rate 5 mm/Hr Normal 0-20 [facility] Comment on above: Performed By: #### L IP, CP, CDP, SED #### [facility] [address] [place] [address] Heading Pinner: Sly Scott DO HCG,,Ur-POCon 10-05 HCG,,Ur-POC Negative Normal NEG [facility] Comment on above: Result Comment: HCG screen is sensitive to 25 mIU/mL. However this test may mixing picker tender lower levels of HCG. If further evaluation is needed please request quantitative HCG. Performed By: #### L IP, CP, CDP, SED #### [facility] [address] [place] [address] Heading Pinner: Sly Scott DO Surgical Pathology Reporton 10-06-2023 Surgical Pathology Report (NOTE) Path Number: [id number] -- Diagnosis -- A. RIGHT AND TRANSVERSE COLON, BIOPSIES: Minimal chronic inactive colitis. B. SIGMOID COLON, BIOPSY: Minimal chronic inactive colitis. Leatha Rhodes M.D. 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 TOY MORGAN RIGHT COLON BIOPSY AND TRANSVERSE Received in formalin are five marcelo-white tissue fragments from 0.2 to 0.4 cm and are 0.8 x 0.4 x 0.2 cm in aggregate. Entirely 1cs. B. TOY MORGAN, SIGMOID COLON BIOPSY Received in formalin are four marcelo-white tissue fragments from 0.2 to 0.4 cm and are 0.6 x 0.4 x 0.2 cm in aggregate. Entirely 1cs. jj tm Mitra Mike/mj:10/06/2023 Microscopic Description A, B. Microscopic examination performed. Processing Lab: [place] [id number] Interpretation Performed at [address] [id number] SURGICAL PATHOLOGY CONSULTATION Patient Name: TOY MORGAN [facility] Rec: [id number] [facility] ANATOMIC PATHOLOGY [address] [place] [address]. [place] [address] Normal [facility] CHLAMYDIA/GC BY PCRon 2023 CHLAMYDIA/GC BY PCR SPECIMEN SOURCE CERVIX CHLAMYDIA DNA(PCR) Negative (qualifier value) Chlamydia trachomatis not detected by nucleic acid amplification. This does not exclude the possibility of infection because results are dependent on adequate specimen collection. GONORRHOEAE DNA(PCR) Negative (qualifier value) Neisseria gonorrhoeae not detected by nucleic acid amplification. This does not exclude the possibility of infection because results are dependent on adequate specimen collection. Normal [facility] Comment on above: Performed By: #### C #### [facility] ([id number]) [address] [place] [address], [address] [place] [address] HERPES SIMPLEX VIRAL PCRon 0 09-28-2023 HERPES SIMPLEX VIRAL PCR SPECIMEN SOURCE VAGINAL LESION HERPES SIMPLEX 1 PCR Negative (qualifier value) HSV 1 DNA Not Detected HERPES SIMPLEX 2 PCR Negative (qualifier value) HSV 2 DNA Not Detected Normal [facility] Comment on above: Performed By: #### H SV12 #### [facility] ([id number]) [address] [place] [address], [address] [place] [address] VAGINITIS PANEL PCRon 2023 VAGINITIS PANEL PCR BACT. VAGINOSIS DNA Detected (qualifier value) Qualitative results are reported based on detection and quantitation of targeted organism markers which include: Lactobacillus spp. (L. crispatus and L. jensenii), Gardnerella vaginalis, Atopobium vaginae, Bacterial Vaginosis Associated Bacteria-2 (BVAB-2) and Megasphaera-1 JOSE SPECIES DNA Not detected (qualifier value) Jose species not detected include: C. albicans, C. tropicalis, C. parapsilosis or C. dubliniensis JOSE KRUSEI DNA Not detected (qualifier value) No Jose krusei detected JOSE GLABRATA DNA Not detected (qualifier value) No Jose glabrata detected TRICHOMONAS VAG DNA Not detected (qualifier value) No Trichomonas vaginalis detected NOTE BD MAX Vaginal Panel has not been evaluated for patients under 18 years old. Results for these patients should be reviewed and assessed in accordance with clinical presentation to determine patient diagnosis. Normal [facility] Comment on above: Performed By: #### V PPCR #### [facility] ([id number]) [address] [place] [address], [address] [place] [address] CBC with Auto Differentialon 08-25-2023 Atypical Lymphocytes 1 % [facility] Media [facility] Atypical Lymphocytes Absolute 0.05 k/uL [employer] [facility] Media [facility] Basophils (Bld) [#/Vol] 0.00 10*3/uL [facility] Basophils/100 WBC (Bld) 0 % 0 - 2 % [facility] Eosinophils (Bld) [#/Vol] 0.00 10*3/uL [facility] Eosinophils/100 WBC (Bld) 0 % 0 - 4 % [facility] Erythrocyte distribution width (RBC) [Ratio] 13.1 % 11.5 - 14.9 % [facility] Hematocrit (Bld) [Volume fraction] 41.7 % 36 - 46 % [facility] Hemoglobin (Bld) [Mass/Vol] 14.4 g/dL 12.0 - 16.0 g/dL [facility] Interpretation and review of laboratory results Abnormal [facility] Lymphocytes/100 WBC (Bld) 35 % 24 - 44 % [facility] Lymphocytes/100 WBC (Bld) 1.72 % [facility] MCH (RBC) [Entitic mass] 31.6 pg 26 - 34 pg [facility] MCHC (RBC) [Mass/Vol] 34.6 g/dL 31 - 3 7 g/dL [facility] MCV (RBC) [Entitic vol] 91.3 fL 80 - 100 fL [facility] Monocytes/100 WBC (Bld) 9 % High 1 - 7 % [facility] Monocytes/100 WBC (Bld) 0.44 % [facility] Morphology Richard (Bld) [Interp] ANISOCYTOSIS PRESENT [facility] Morphology Richard (Bld) [Interp] MICROCYTOSIS PRESENT [facility] Neutrophils/100 WBC (Bld) 55 % 36 - 66 % [facility] Platelet mean volume (Bld) [Entitic vol] 8.0 fL 6.0 - 12.0 fL [facility] Platelets (Bld) [#/Vol] 280 10*3/uL [facility] RBC (Bld) [#/Vol] 4.57 10*6/uL 4.0 - 5.2 m/uL [facility] Segmented neutrophils/100 WBC (Bld) 2.69 % [facility] WBC other (Bld) [#/Vol] 4.9 [facility] CBC with Diffon 08-25-2023 Abs. Atypical Lymphs 0.05 k/uL Normal [facility] Comment on above: Performed By: #### L IP, CP, CDP, SED #### [facility] [address] [place] [address] Heading Pinner: Sly Scott DO Abs. Basophil 0.00 k/uL Normal 0.0-0.2 [facility] Comment on above: Performed By: #### L IP, CP, CDP, SED #### [facility] [address] [place] [address]. [place] [address] Heading Pinner: Sly Scott DO Abs.Neutrophil (Seg) 2.69 k/uL Normal 1.3-9.1 [facility] Comment on above: Performed By: #### L IP, CP, CDP, SED #### [facility] [address] [place] [address]. [place] [address] Heading Pinner: Sly Scott DO Atypical Lymphs 1 % Normal [facility] Comment on above: Performed By: #### L IP, CP, CDP, SED #### [facility] [address] [place] [address] Heading Pinner: Sly Scott DO Basophils/100 WBC (Bld) 0 % Normal 0-2 [facility] Comment on above: Performed By: #### L IP, CP, CDP, SED #### [facility] [address] [place] [address] Heading Pinner: Sly Scott DO Eosinophils (Bld) [#/Vol] 0.00 10*3/uL Normal 0.0-0.4 [facility] Comment on above: Performed By: #### L IP, CP, CDP, SED #### [facility] [address] [place] [address] Heading Pinner: Sly Scott DO Eosinophils/100 WBC (Bld) 0 % Normal 0-4 [facility] Comment on above: Performed By: #### L IP, CP, CDP, SED #### [facility] [address] [place] [address] [place] [address] Heading Pinner: Sly Scott DO Lymphocytes (Bld) [#/Vol] 1.72 10*3/uL Normal 1.0-4.8 [facility] Comment on above: Performed By: #### L IP, CP, CDP, SED #### [facility] [place] [address] Heading Pinner: Sly Scott DO Lymphocytes/100 WBC (Bld) 35 % Normal 24-44 [facility] Comment on above: Performed By: #### L IP, CP, CDP, SED #### [facility] [address] [place] [address] Heading Pinner: Sly Scott DO Monocytes (Bld) [#/Vol] 0.44 10*3/uL Normal 0.1-1.3 [facility] Comment on above: Performed By: #### L IP, CP, CDP, SED #### [facility] [address] [place] [address] Heading Pinner: Sly Scott DO Monocytes/100 WBC (Bld) 9 % High 1-7 [facility] Comment on above: Performed By: #### L IP, CP, CDP, SED #### [facility] [address] [place] [address] Heading Pinner: Sly Scott DO Morphology Richard (Bld) [Interp] ANISOCYTOSIS PRESENT Normal [facility] Comment on above: Result Comment: MICR OCYTOSIS PRESENT Performed By: #### L IP, CP, CDP, SED #### [facility] [address] [place] [address] Heading Pinner: Sly Scott DO Neutrophil (Seg) 55 % Normal 36-66 [facility] Comment on above: Performed By: #### L IP, CP, CDP, SED #### [facility] [address] [place] [address] Heading Pinner: Sly Scott DO Erythrocyte distribution width (RBC) [Ratio] 13.1 % Normal 11.5-14.9 [facility] Comment on above: Performed By: #### L IP, CP, CDP, SED #### [facility] [place] [address] Heading Pinner: Sly Scott DO Hematocrit (Bld) [Volume fraction] 41.7 % Normal 36-46 [facility] Comment on above: Performed By: #### L IP, CP, CDP, SED #### [facility] [place] [address] Heading Pinner: Sly Scott DO Hemoglobin (Bld) [Mass/Vol] 14.4 g/dL Normal 12.0-16.0 [facility] Comment on above: Performed By: #### L IP, CP, CDP, SED #### [facility] [address] [place], [place] [address]e [facility] [place] [address] Heading Pinner: Sly Scott DO MCH (RBC) [Entitic mass] 31.6 pg Normal 26-34 [facility] Comment on above: Performed By: #### L IP, CP, CDP, SED #### [facility] [address] [place] [address]. [place] [address] Heading Pinner: Sly Scott DO MCHC (RBC) [Mass/Vol] 34.6 g/dL Normal 31-37 [facility] Comment on above: Performed By: #### L IP, CP, CDP, SED #### [facility] [place] [address] Heading Pinner: Sly Scott DO MCV (RBC) [Entitic vol] 91.3 fL Normal 80-100 [facility] Comment on above: Performed By: #### L IP, CP, CDP, SED #### [facility] [address] [facility] [place] [address] Heading Pinner: Sly Scott DO Platelet mean volume (Bld) [Entitic vol] 8.0 fL Normal 6.0-12.0 [facility] Comment on above: Performed By: #### L IP, CP, CDP, SED #### [facility] [address] [place] [address] Heading Pinner: Sly Scott DO Platelets (Bld) [#/Vol] 280 10*3/uL Normal 150-450 [facility] Comment on above: Performed By: #### L IP, CP, CDP, SED #### [facility] [place] [address] Heading Pinner: Sly Scott DO RBC (Bld) [#/Vol] 4.57 10*6/uL Normal 4.0-5.2 [facility] Comment on above: Performed By: #### L IP, CP, CDP, SED #### [facility] [place] [address] Heading Pinner: Sly Scott DO WBC (Bld) [#/Vol] 4.9 10*3/uL Normal 3.5-11.0 [facility] Comment on above: Performed By: #### L IP, CP, CDP, SED #### [facility] [place] [address] Heading Pinner: Sly Scott DO Comp Metabolic Profon 2023 Albumin [Mass/Vol] 4.3 g/dL Normal 3.5-5.2 [facility] Comment on above: Performed By: #### L IP, CP, CDP, SED #### [facility] [place] [address] Heading Pinner: Sly Scott DO Alkaline Phos 73 U/L Normal 35-104 [facility] Comment on above: Performed By: #### L IP, CP, CDP, SED #### [facility] [address] [place] [address] Heading Pinner: Sly Scott DO ALT [Catalytic activity/Vol] 22 U/L Normal 5-33 [facility] Comment on above: Performed By: #### L IP, CP, CDP, SED #### [facility] [address] [place] [address] Heading Pinner: Sly Scott DO Anion gap [Moles/Vol] 11 mmol/L Normal 9-17 [facility] Comment on above: Performed By: #### L IP, CP, CDP, SED #### [facility] [place] [address] Heading Pinner: Sly Scott DO AST [Catalytic activity/Vol] 28 U/L Normal <32 [facility] Comment on above: Performed By: #### L IP, CP, CDP, SED #### [facility] [place] [address] Heading Pinner: Sly Scott DO Bilirubin [Mass/Vol] 0.6 mg/dL Normal 0.3-1.2 [facility] Comment on above: Performed By: #### L IP, CP, CDP, SED #### [facility] [place] [address] Heading Pinner: Sly Scott DO Calcium [Mass/Vol] 9.3 mg/dL Normal 8.6-10.4 [facility] Comment on above: Performed By: #### L IP, CP, CDP, SED #### [facility] [place] [address] Heading Pinner: Sly Scott DO Chloride [Moles/Vol] 100 mmol/L Normal 98-107 [facility] Comment on above: Performed By: #### L IP, CP, CDP, SED #### [facility] [address] [place] [address] Heading Pinner: Sly Scott DO CO2 [Moles/Vol] 28 mmol/L Normal 20-31 [facility] Comment on above: Performed By: #### L IP, CP, CDP, SED #### [facility] [address] [facility] [place] [address] Heading Pinner: Sly Scott DO Creatinine [Mass/Vol] 0.7 mg/dL Normal 0.5-0.9 [facility] Comment on above: Performed By: #### L IP, CP, CDP, SED #### [facility] [address] [facility] [place] [address] Heading Pinner: Sly Scott DO GFR/1.73 sq M.predicted among non-blacks MDRD (S/P/Bld) [Vol rate/Area] mL/min/{1.73_m2} Normal >60 [facility] Comment on above: Result Comment: These results are not intended for use in patients <18 years of age. eGFR results are calculated without a race factor using the 2020 CKD-EPI equation. Careful clinical correlation is recommended, particularly when comparing to results calculated using previous equations. The CKD-EPI equation is less accurate in patients with extremes of muscle mass, extra-renal metabolism of creatine, excessive creatine ingestion, or following therapy that affects renal tubular secretion. Performed By: #### L IP, CP, CDP, SED #### [facility] [address] [facility] [place] [address] Heading Pinner: Sly Scott DO Glucose [Mass/Vol] 86 mg/dL Normal 70-99 [facility] Comment on above: Performed By: #### L IP, CP, CDP, SED #### [facility] [address] [facility] [place] [address] Heading Pinner: Sly Scott DO Potassium [Moles/Vol] 3.6 mmol/L Low 3.7-5.3 [facility] Comment on above: Performed By: #### L IP, CP, CDP, SED #### [facility] [address] [facility] [place] [address] Heading Pinner: Sly Scott DO Protein [Mass/Vol] 7.7 g/dL Normal 6.4-8.3 [facility] Comment on above: Performed By: #### L IP, CP, CDP, SED #### [facility] [place] [address] Heading Pinner: Sly Scott DO Sodium [Moles/Vol] 139 mmol/L Normal 135-144 [facility] Comment on above: Performed By: #### L IP, CP, CDP, SED #### [facility] [place] [address] Heading Pinner: Sly Scott DO Urea nitrogen [Mass/Vol] 10 mg/dL Normal 6-20 [facility] Comment on above: Performed By: #### L IP, CP, CDP, SED #### [facility] [address] [place] [address]. [place] [address] Heading Pinner: Sly Soctt DO Comprehensive Metabolic Pane kory 08-25-2023 Albumin [Mass/Vol] 4.3 g/dL 3.5 - 5.2 g/dL [facility] ALP [Catalytic activity/Vol] 73 U/L 35 - 104 U/L [facility] ALT [Catalytic activity/Vol] 22 U/L 5 - 33 U/L [facility] Anion gap [Moles/Vol] 11 mmol/L 9 - 17 mmol/L [facility] AST [Catalytic activity/Vol] 28 U/L NINF - 32 U/L [facility] Bilirubin [Mass/Vol] 0.6 mg/dL 0.3 - 1 .2 mg/dL [facility] Calcium [Mass/Vol] 9.3 mg/dL 8.6 - 10. 4 mg/dL [facility] Chloride [Moles/Vol] 100 mmol/L 98 - 10 7 mmol/L [facility] CO2 [Moles/Vol] 28 mmol/L 20 - 31 mmol/L [facility] Creatinine [Mass/Vol] 0.7 mg/dL 0.5 - 0.9 mg/dL [facility] GFR/1.73 sq M.predicted MDRD (S/P/Bld) [Vol rate/Area] - PINF [facility] Comment on above: These results are not intended for use in patients <18 years of age. eGFR results are calculated without a race factor using the 2020 CKD-EPI equation. Careful clinical correlation is recommended, particularly when comparing to results calculated using previous equations. The CKD-EPI equation is less accurate in patients with extremes of muscle mass, extra-renal metabolism of creatine, excessive creatine ingestion, or following therapy that affects renal tubular secretion. Glucose [Mass/Vol] 86 mg/dL 70 - 99 mg/dL [facility] Interpretation and review of laboratory results Abnormal [facility] Potassium [Moles/Vol] 3.6 mmol/L Low 3.7 - 5.3 mmol/L [facility] Protein [Mass/Vol] 7.7 g/dL 6.4 - 8.3 g/dL [facility] Sodium [Moles/Vol] 139 mmol/L 135 - 144 mmol/L [facility] Urea nitrogen [Mass/Vol] 10 mg/dL 6 - 20 mg/dL [facility] Lipaseon 08-25-2023 Lipase [Catalytic activity/Vol] 22 U/L Normal 13-60 [facility] Comment on above: Performed By: #### L IP, CP, CDP, SED #### [facility] [address] [place] [address] Heading Pinner: Sly Scott DO Lipase [Catalytic activity/Vol] 22 U/L 13 - 60 U/L [facility] No Panel Informationon 08-24 [facility] Sedimentation Rateon 024 Sedimentation Rate 10 mm/Hr Normal 0-20 [facility] Comment on above: Performed By: #### C P, LIP, CDP, SED #### [facility] [address] [place] [address] Heading Pinner: Sly Scott DO ESR Photometric method (Bld) [Velocity] 10 [facility] CBC with Diffon 06-30-2023 Abs. Basophil 0.00 k/uL Normal 0.0-0.2 [facility] Comment on above: Performed By: #### C NONA, CP #### [facility] [address] [place] [address] Heading Pinner: Sly Scott DO Abs.Neutrophil (Seg) 2.10 k/uL Normal 1.3-9.1 [facility] Comment on above: Performed By: #### C NONA, CP #### [facility] [address] [place] [address] Heading Pinner: Sly Scott DO Basophils/100 WBC (Bld) 1 % Normal 0-2 [facility] Comment on above: Performed By: #### C DP, CP #### [facility] [address] [place] [address] Heading Pinner: Sly Scott DO Eosinophils (Bld) [#/Vol] 0.00 10*3/uL Normal 0.0-0.4 [facility] Comment on above: Performed By: #### C DP, CP #### [facility] [address] [place] [address] Heading Pinner: Sly Scott DO Eosinophils/100 WBC (Bld) 1 % Normal 0-4 [facility] Comment on above: Performed By: #### C DP, CP #### [facility] [place] [address] Heading Pinner: Sly Scott DO Erythrocyte distribution width (RBC) [Ratio] 12.9 % Normal 11.5-14.9 [facility] Comment on above: Performed By: #### C DP, CP #### [facility] [address] [place], [place] [address] [place] [address] Heading Pinner: Sly Scott DO Hematocrit (Bld) [Volume fraction] 42.8 % Normal 36-46 [facility] Comment on above: Performed By: #### C DP, CP #### [facility] [address] [place] [address] Heading Pinner: Sly Scott DO Hemoglobin (Bld) [Mass/Vol] 14.7 g/dL Normal 12.0-16.0 [facility] Comment on above: Performed By: #### C DP, CP #### [facility] [address] [place] [address] Heading Pinner: Sly Scott DO Lymphocytes (Bld) [#/Vol] 1.00 10*3/uL Normal 1.0-4.8 [facility] Comment on above: Performed By: #### C DP, CP #### [facility] [address] [place] [address] Heading Pinner: Sly Scott DO Lymphocytes/100 WBC (Bld) 29 % Normal 24-44 [facility] Comment on above: Performed By: #### C DP, CP #### [facility] [address] [place], [place] [address] [place] [address] Heading Pinner: Sly Scott DO MCH (RBC) [Entitic mass] 32.0 pg Normal 26-34 [facility] Comment on above: Performed By: #### C DP, CP #### [facility] [place] [address] Heading Pinner: Sly Scott DO MCHC (RBC) [Mass/Vol] 34.4 g/dL Normal 31-37 [facility] Comment on above: Performed By: #### C DP, CP #### [facility] [address] [place] [address] Heading Pinner: Sly Scott DO MCV (RBC) [Entitic vol] 93.1 fL Normal 80-100 [facility] Comment on above: Performed By: #### C DP, CP #### [facility] [address] [place] [address] Heading Pinner: Sly Scott DO Monocytes (Bld) [#/Vol] 0.30 10*3/uL Normal 0.1-1.3 [facility] Comment on above: Performed By: #### C DP, CP #### [facility] [address] [place] [address] Heading Pinner: Sly Scott DO Monocytes/100 WBC (Bld) 10 % High 1-7 [facility] Comment on above: Performed By: #### C DP, CP #### [facility] [address] [place] [address] Heading Pinner: Sly Scott DO Neutrophil (Seg) 59 % Normal 36-66 [facility] Comment on above: Performed By: #### C DP, CP #### [facility] [address] [place] [address] Heading Pinner: Sly Scott DO Platelet mean volume (Bld) [Entitic vol] 8.0 fL Normal 6.0-12.0 [facility] Comment on above: Performed By: #### C DP, CP #### [facility] [address] [place] [address] Heading Pinner: Sly Scott DO Platelets (Bld) [#/Vol] 286 10*3/uL Normal 150-450 [facility] Comment on above: Performed By: #### C DP, CP #### [facility] [address] [place] [address] Heading Pinner: Sly Scott DO RBC (Bld) [#/Vol] 4.60 10*6/uL Normal 4.0-5.2 [facility] Comment on above: Performed By: #### C DP, CP #### [facility] [address] [place] [address] Heading Pinner: Sly Scott DO WBC (Bld) [#/Vol] 3.5 10*3/uL Normal 3.5-11.0 [facility] Comment on above: Performed By: #### C DP, CP #### [facility] [address] [place] [address] Heading Pinner: Sly Scott DO Comp Metabolic Profon 2023 Albumin [Mass/Vol] 4.5 g/dL Normal 3.5-5.2 [facility] Comment on above: Performed By: #### C DP, CP #### [facility] [address] [place] [address] Heading Pinner: Sly Scott DO Alkaline Phos 75 U/L Normal 35-104 [facility] Comment on above: Performed By: #### C DP, CP #### [facility] [address] [place] [address] Heading Pinner: Sly Scott DO ALT [Catalytic activity/Vol] 33 U/L Normal 5-33 [facility] Comment on above: Performed By: #### C DP, CP #### [facility] [address] [place] [address] Heading Pinner: Sly Scott DO Anion gap [Moles/Vol] 10 mmol/L Normal 9-17 [facility] Comment on above: Performed By: #### C DP, CP #### [facility] [place] [address] Heading Pinner: Sly Scott DO AST [Catalytic activity/Vol] 37 U/L High <32 [facility] Comment on above: Performed By: #### C DP, CP #### [facility] [place] [address] Heading Pinner: Sly Scott DO Bilirubin [Mass/Vol] 0.5 mg/dL Normal 0.3-1.2 [facility] Comment on above: Performed By: #### C DP, CP #### [facility] [place] [address] Heading Pinner: Sly Scott DO Calcium [Mass/Vol] 9.5 mg/dL Normal 8.6-10.4 [facility] Comment on above: Performed By: #### C DP, CP #### [facility] [place] [address] Heading Pinner: Sly Scott DO Chloride [Moles/Vol] 102 mmol/L Normal 98-107 [facility] Comment on above: Performed By: #### C DP, CP #### [facility] [place] [address] Heading Pinner: Sly Scott DO CO2 [Moles/Vol] 29 mmol/L Normal 20-31 [facility] Comment on above: Performed By: #### C DP, CP #### [facility] [address] [place] [address] Heading Pinner: Sly Scott DO Creatinine [Mass/Vol] 0.6 mg/dL Normal 0.5-0.9 [facility] Comment on above: Performed By: #### C NONA, CP #### [facility] [address] [facility] [place] [address] Heading Pinner: Sly Scott DO GFR/1.73 sq M.predicted among non-blacks MDRD (S/P/Bld) [Vol rate/Area] mL/min/{1.73_m2} Normal >60 [facility] Comment on above: Result Comment: These results are not intended for use in patients <18 years of age. eGFR results are calculated without a race factor using the 2020 CKD-EPI equation. Careful clinical correlation is recommended, particularly when comparing to results calculated using previous equations. The CKD-EPI equation is less accurate in patients with extremes of muscle mass, extra-renal metabolism of creatine, excessive creatine ingestion, or following therapy that affects renal tubular secretion. Performed By: #### C NONA, CP #### [facility] [address] [facility] [place] [address] Heading Pinner: Sly Scott DO Glucose [Mass/Vol] 93 mg/dL Normal 70-99 [facility] Comment on above: Performed By: #### C NONA, CP #### [facility] [address] [facility] [place] [address] Heading Pinner: Sly Scott DO Potassium [Moles/Vol] 3.7 mmol/L Normal 3.7-5.3 [facility] Comment on above: Performed By: #### C NONA, CP #### [facility] [address] [facility] [place] [address] Heading Pinner: Sly Scott DO Protein [Mass/Vol] 8.2 g/dL Normal 6.4-8.3 [facility] Comment on above: Performed By: #### C DP, CP #### [facility] [address] [place] [address] Heading Pinner: Sly Scott DO Sodium [Moles/Vol] 141 mmol/L Normal 135-144 [facility] Comment on above: Performed By: #### C DP, CP #### [facility] [place] [address] Heading Pinner: Sly Scott DO Urea nitrogen [Mass/Vol] 14 mg/dL Normal 6-20 [facility] Comment on above: Performed By: #### C DP, CP #### [facility] [address] [place] [address] Heading Pinner: Sly Scott DO Lipaseon 06-30-2023 Lipase [Catalytic activity/Vol] 29 U/L Normal 13-60 [facility] Comment on above: Performed By: #### L IP, SED #### [facility] [place] [address] Heading Pinner: Sly Scott DO Sedimentation Rateon 024 Sedimentation Rate 2 mm/Hr Normal 0-20 [facility] Comment on above: Performed By: #### L IP, SED #### [facility] [place] [address] Heading Pinner: Sly Scott DO CBC with Diffon 05-05-2023 Abs. Basophil 0.00 k/uL Normal 0.0-0.2 [facility] Comment on above: Performed By: #### L IP, CP, CDP, SED #### [facility] [place] [address] Heading Pinner: Sly Scott DO Abs.Neutrophil (Seg) 2.40 k/uL Normal 1.3-9.1 [facility] Comment on above: Performed By: #### L IP, CP, CDP, SED #### [facility] [address] [place] [address] Heading Pinner: Sly Scott DO Basophils/100 WBC (Bld) 1 % Normal 0-2 [facility] Comment on above: Performed By: #### L IP, CP, CDP, SED #### [facility] [place] [address] Heading Pinner: Sly Soctt DO Eosinophils (Bld) [#/Vol] 0.00 10*3/uL Normal 0.0-0.4 [facility] Comment on above: Performed By: #### L IP, CP, CDP, SED #### [facility] [facility] [place] [address] Heading Pinner: Sly Scott DO Eosinophils/100 WBC (Bld) 1 % Normal 0-4 [facility] Comment on above: Performed By: #### L IP, CP, CDP, SED #### [facility] [facility] [place] [address] Heading Pinner: Sly Scott DO Erythrocyte distribution width (RBC) [Ratio] 12.9 % Normal 11.5-14.9 [facility] Comment on above: Performed By: #### L IP, CP, CDP, SED #### [facility] [facility] [place] [address] Heading Pinner: Sly Scott DO Hematocrit (Bld) [Volume fraction] 39.8 % Normal 36-46 [facility] Comment on above: Performed By: #### L IP, CP, CDP, SED #### [facility] [facility] [place] [address] Heading Pinner: Sly Scott DO Hemoglobin (Bld) [Mass/Vol] 13.8 g/dL Normal 12.0-16.0 [facility] Comment on above: Performed By: #### L IP, CP, CDP, SED #### [facility] [address] [place] [address] Heading Pinner: Sly Scott DO Lymphocytes (Bld) [#/Vol] 1.30 10*3/uL Normal 1.0-4.8 [facility] Comment on above: Performed By: #### L IP, CP, CDP, SED #### [facility] [address] [place] [address] Heading Pinner: Sly Scott DO Lymphocytes/100 WBC (Bld) 31 % Normal 24-44 [facility] Comment on above: Performed By: #### L IP, CP, CDP, SED #### [facility] [address] [place] [address] Heading Pinner: Sly Scott DO MCH (RBC) [Entitic mass] 32.3 pg Normal 26-34 [facility] Comment on above: Performed By: #### L IP, CP, CDP, SED #### [facility] [address] [place] [address] Heading Pinner: Sly Scott DO MCHC (RBC) [Mass/Vol] 34.7 g/dL Normal 31-37 [facility] Comment on above: Performed By: #### L IP, CP, CDP, SED #### [facility] [address] [place] [address] Heading Pinner: Sly Scott DO MCV (RBC) [Entitic vol] 93.0 fL Normal 80-100 [facility] Comment on above: Performed By: #### L IP, CP, CDP, SED #### [facility] [address] [place] [address] Heading Pinner: Sly Scott DO Monocytes (Bld) [#/Vol] 0.50 10*3/uL Normal 0.1-1.3 [facility] Comment on above: Performed By: #### L IP, CP, CDP, SED #### [facility] [address] [place] [address] Heading Pinner: Sly Scott DO Monocytes/100 WBC (Bld) 12 % High 1-7 [facility] Comment on above: Performed By: #### L IP, CP, CDP, SED #### [facility] [place] [address] Heading Pinner: Sly Scott DO Neutrophil (Seg) 55 % Normal 36-66 [facility] Comment on above: Performed By: #### L IP, CP, CDP, SED #### [facility] [address] [place] [address] Heading Pinner: Sly Scott DO Platelet mean volume (Bld) [Entitic vol] 7.8 fL Normal 6.0-12.0 [facility] Comment on above: Performed By: #### L IP, CP, CDP, SED #### [facility] [place] [address] Heading Pinner: Sly Scott DO Platelets (Bld) [#/Vol] 275 10*3/uL Normal 150-450 [facility] Comment on above: Performed By: #### L IP, CP, CDP, SED #### [facility] [address] [place] [address] Heading Pinner: Sly Scott DO RBC (Bld) [#/Vol] 4.28 10*6/uL Normal 4.0-5.2 [facility] Comment on above: Performed By: #### L IP, CP, CDP, SED #### [facility] [address] [place] [address] Heading Pinner: Sly Scott DO WBC (Bld) [#/Vol] 4.3 10*3/uL Normal 3.5-11.0 [facility] Comment on above: Performed By: #### L IP, CP, CDP, SED #### [facility] [address] [place] [address] Heading Pinner: Sly Scott DO Comp Metabolic Profon 2022 Albumin [Mass/Vol] 4.0 g/dL Normal 3.5-5.2 [facility] Comment on above: Performed By: #### L IP, CP, CDP, SED #### [facility] [place] [address] Heading Pinner: Sly Scott DO Alkaline Phos 64 U/L Normal 35-104 [facility] Comment on above: Performed By: #### L IP, CP, CDP, SED #### [facility] [place] [address] Heading Pinner: Sly Scott DO ALT [Catalytic activity/Vol] 21 U/L Normal 5-33 [facility] Comment on above: Performed By: #### L IP, CP, CDP, SED #### [facility] [place] [address] Heading Pinner: Sly Scott DO Anion gap [Moles/Vol] 8 mmol/L Low 9-17 [facility] Comment on above: Performed By: #### L IP, CP, CDP, SED #### [facility] [place] [address] Heading Pinner: Sly Scott DO AST [Catalytic activity/Vol] 27 U/L Normal <32 [facility] Comment on above: Performed By: #### L IP, CP, CDP, SED #### [facility] [address] [place] [address] Heading Pinner: Sly Scott DO Bilirubin [Mass/Vol] 0.5 mg/dL Normal 0.3-1.2 [facility] Comment on above: Performed By: #### L IP, CP, CDP, SED #### [facility] [facility] [place] [address] Heading Pinner: Sly Scott DO Calcium [Mass/Vol] 9.0 mg/dL Normal 8.6-10.4 [facility] Comment on above: Performed By: #### L IP, CP, CDP, SED #### [facility] [address] [place] [address]. [place] [address] Heading Pinner: Sly Scott DO Chloride [Moles/Vol] 102 mmol/L Normal 98-107 [facility] Comment on above: Performed By: #### L IP, CP, CDP, SED #### [facility] [address] [place] [address]. [place] [address] Heading Pinner: Sly Scott DO CO2 [Moles/Vol] 26 mmol/L Normal 20-31 [facility] Comment on above: Performed By: #### L IP, CP, CDP, SED #### [facility] [address] [place] [address]. [place] [address] Heading Pinner: Sly Scott DO Creatinine [Mass/Vol] 0.5 mg/dL Normal 0.5-0.9 [facility] Comment on above: Performed By: #### L IP, CP, CDP, SED #### [facility] [address] [place] [address] Heading Pinner: Sly Scott DO GFR/1.73 sq M.predicted among non-blacks MDRD (S/P/Bld) [Vol rate/Area] mL/min/{1.73_m2} Normal >60 [facility] Comment on above: Result Comment: These results are not intended for use in patients <18 years of age. eGFR results are calculated without a race factor using the 2020 CKD-EPI equation. Careful clinical correlation is recommended, particularly when comparing to results calculated using previous equations. The CKD-EPI equation is less accurate in patients with extremes of muscle mass, extra-renal metabolism of creatine, excessive creatine ingestion, or following therapy that affects renal tubular secretion. Performed By: #### L IP, CP, CDP, SED #### [facility] [address] [place] [address] Heading Pinner: Sly Scott DO Glucose [Mass/Vol] 86 mg/dL Normal 70-99 [facility] Comment on above: Performed By: #### L IP, CP, CDP, SED #### [facility] [place] [address] Heading Pinner: Sly Scott DO Potassium [Moles/Vol] 4.0 mmol/L Normal 3.7-5.3 [facility] Comment on above: Performed By: #### L IP, CP, CDP, SED #### [facility] [place] [address] Heading Pinner: Sly Scott DO Protein [Mass/Vol] 7.2 g/dL Normal 6.4-8.3 [facility] Comment on above: Performed By: #### L IP, CP, CDP, SED #### [facility] [facility] [place] [address] Heading Pinner: Sly Scott DO Sodium [Moles/Vol] 136 mmol/L Normal 135-144 [facility] Comment on above: Performed By: #### L IP, CP, CDP, SED #### [facility] [place] [address] Heading Pinner: Sly Scott DO Urea nitrogen [Mass/Vol] 12 mg/dL Normal 6-20 [facility] Comment on above: Performed By: #### L IP, CP, CDP, SED #### [facility] [address] [place] [address] Heading Pinner: Sly Scott DO Lipaseon 05-05-2023 Lipase [Catalytic activity/Vol] 25 U/L Normal 13-60 [facility] Comment on above: Performed By: #### L IP, CP, CDP, SED #### [facility] [place] [address] Heading Pinner: Sly Scott DO Sedimentation Rateon 023 Sedimentation Rate 6 mm/Hr Normal 0-20 [facility] Comment on above: Performed By: #### L IP, CP, CDP, SED #### [facility] [place] [address] Heading Pinner: Sly Scott DO CBC with Diffon 03-10-2023 Abs. Basophil 0.00 k/uL Normal 0.0-0.2 [facility] Comment on above: Performed By: #### L IP, CP, CDP, SED #### [facility] [place] [address] Heading Pinner: Sly Scott DO Abs.Neutrophil (Seg) 3.70 k/uL Normal 1.3-9.1 [facility] Comment on above: Performed By: #### L IP, CP, CDP, SED #### [facility] [address] [facility] [place] [address] Heading Pinner: Sly Scott DO Basophils/100 WBC (Bld) 1 % Normal 0-2 [facility] Comment on above: Performed By: #### L IP, CP, CDP, SED #### [facility] [address] [place] [address] Heading Pinner: Sly Scott DO Eosinophils (Bld) [#/Vol] 0.00 10*3/uL Normal 0.0-0.4 [facility] Comment on above: Performed By: #### L IP, CP, CDP, SED #### [facility] [address] [place] [address] Heading Pinner: Sly Scott DO Eosinophils/100 WBC (Bld) 1 % Normal 0-4 [facility] Comment on above: Performed By: #### L IP, CP, CDP, SED #### [facility] [address] [place] [address] Heading Pinner: Sly Scott DO Erythrocyte distribution width (RBC) [Ratio] 13.2 % Normal 11.5-14.9 [facility] Comment on above: Performed By: #### L IP, CP, CDP, SED #### [facility] [address] [place] [address] Heading Pinner: Sly Scott DO Hematocrit (Bld) [Volume fraction] 42.3 % Normal 36-46 [facility] Comment on above: Performed By: #### L IP, CP, CDP, SED #### [facility] [address] [place] [address] Heading Pinner: Sly Scott DO Hemoglobin (Bld) [Mass/Vol] 14.3 g/dL Normal 12.0-16.0 [facility] Comment on above: Performed By: #### L IP, CP, CDP, SED #### [facility] [address] [place], [place] [address] [place] [address] Heading Pinner: lSy Scott DO Lymphocytes (Bld) [#/Vol] 1.20 10*3/uL Normal 1.0-4.8 [facility] Comment on above: Performed By: #### L IP, CP, CDP, SED #### [facility] [address] [place] [address] Heading Pinner: Sly Scott DO Lymphocytes/100 WBC (Bld) 22 % Low 24-44 [facility] Comment on above: Performed By: #### L IP, CP, CDP, SED #### [facility] [address] [place] [address] Heading Pinner: Sly Scott DO MCH (RBC) [Entitic mass] 31.4 pg Normal 26-34 [facility] Comment on above: Performed By: #### L IP, CP, CDP, SED #### [facility] [address] [place] [address] Heading Pinner: Sly Scott DO MCHC (RBC) [Mass/Vol] 33.8 g/dL Normal 31-37 [facility] Comment on above: Performed By: #### L IP, CP, CDP, SED #### [facility] [address] [place] [address] Heading Pinner: Sly Scott DO MCV (RBC) [Entitic vol] 92.9 fL Normal 80-100 [facility] Comment on above: Performed By: #### L IP, CP, CDP, SED #### [facility] [address] [place] [address] Heading Pinner: Sly Scott DO Monocytes (Bld) [#/Vol] 0.60 10*3/uL Normal 0.1-1.3 [facility] Comment on above: Performed By: #### L IP, CP, CDP, SED #### [facility] [address] [place] [address] Heading Pinner: Sly Scott DO Monocytes/100 WBC (Bld) 11 % High 1-7 [facility] Comment on above: Performed By: #### L IP, CP, CDP, SED #### [facility] [address] [place] [address] Heading Pinner: Sly Scott DO Neutrophil (Seg) 65 % Normal 36-66 [facility] Comment on above: Performed By: #### L IP, CP, CDP, SED #### [facility] [address] [place] [address] Heading Pinner: Sly Scott DO Platelet mean volume (Bld) [Entitic vol] 7.7 fL Normal 6.0-12.0 [facility] Comment on above: Performed By: #### L IP, CP, CDP, SED #### [facility] [place] [address] Heading Pinner: Sly Scott DO Platelets (Bld) [#/Vol] 299 10*3/uL Normal 150-450 [facility] Comment on above: Performed By: #### L IP, CP, CDP, SED #### [facility] [place] [address] Heading Pinner: Sly Scott DO RBC (Bld) [#/Vol] 4.56 10*6/uL Normal 4.0-5.2 [facility] Comment on above: Performed By: #### L IP, CP, CDP, SED #### [facility] [place] [address] Heading Pinner: Sly Scott DO WBC (Bld) [#/Vol] 5.6 10*3/uL Normal 3.5-11.0 [facility] Comment on above: Performed By: #### L IP, CP, CDP, SED #### [facility] [place] [address] Heading Pinner: Sly Scott DO Comp Metabolic Profon 2022 Albumin [Mass/Vol] 4.4 g/dL Normal 3.5-5.2 [facility] Comment on above: Performed By: #### L IP, CP, CDP, SED #### [facility] [address] [place] [address] Heading Pinner: Sly Scott DO Alkaline Phos 67 U/L Normal 35-104 [facility] Comment on above: Performed By: #### L IP, CP, CDP, SED #### [facility] [address] [place] [address] Heading Pinner: Sly Scott DO ALT [Catalytic activity/Vol] 16 U/L Normal 5-33 [facility] Comment on above: Performed By: #### L IP, CP, CDP, SED #### [facility] [address] [place] [address] Heading Pinner: Sly Scott DO Anion gap [Moles/Vol] 9 mmol/L Normal 9-17 [facility] Comment on above: Performed By: #### L IP, CP, CDP, SED #### [facility] [place] [address] Heading Pinner: Sly Scott DO AST [Catalytic activity/Vol] 24 U/L Normal <32 [facility] Comment on above: Performed By: #### L IP, CP, CDP, SED #### [facility] [address] [place] [address] Heading Pinner: Sly Scott DO Bilirubin [Mass/Vol] 0.7 mg/dL Normal 0.3-1.2 [facility] Comment on above: Performed By: #### L IP, CP, CDP, SED #### [facility] [address] [place] [address] Heading Pinner: Sly Scott DO Calcium [Mass/Vol] 9.6 mg/dL Normal 8.6-10.4 [facility] Comment on above: Performed By: #### L IP, CP, CDP, SED #### [facility] [address] [facility] [place] [address] Heading Pinner: Sly Scott DO Chloride [Moles/Vol] 102 mmol/L Normal 98-107 [facility] Comment on above: Performed By: #### L IP, CP, CDP, SED #### [facility] [address] [facility] [place] [address] Heading Pinner: Sly Scott DO CO2 [Moles/Vol] 26 mmol/L Normal 20-31 [facility] Comment on above: Performed By: #### L IP, CP, CDP, SED #### [facility] [address] [facility] [place] [address] Heading Pinner: Sly Scott DO Creatinine [Mass/Vol] 0.6 mg/dL Normal 0.5-0.9 [facility] Comment on above: Performed By: #### L IP, CP, CDP, SED #### [facility] [place] [address] Heading Pinner: Sly Scott DO GFR/1.73 sq M.predicted among non-blacks MDRD (S/P/Bld) [Vol rate/Area] mL/min/{1.73_m2} Normal >60 [facility] Comment on above: Result Comment: These results are not intended for use in patients <18 years of age. eGFR results are calculated without a race factor using the 2020 CKD-EPI equation. Careful clinical correlation is recommended, particularly when comparing to results calculated using previous equations. The CKD-EPI equation is less accurate in patients with extremes of muscle mass, extra-renal metabolism of creatine, excessive creatine ingestion, or following therapy that affects renal tubular secretion. Performed By: #### L IP, CP, CDP, SED #### [facility] [address] [place] [address] Heading Pinner: Sly Scott DO Glucose [Mass/Vol] 99 mg/dL Normal 70-99 [facility] Comment on above: Performed By: #### L IP, CP, CDP, SED #### [facility] [place] [address] Heading Pinner: Sly Scott DO Potassium [Moles/Vol] 3.9 mmol/L Normal 3.7-5.3 [facility] Comment on above: Performed By: #### L IP, CP, CDP, SED #### [facility] [place] [address] Heading Pinner: Sly Scott DO Protein [Mass/Vol] 7.8 g/dL Normal 6.4-8.3 [facility] Comment on above: Performed By: #### L IP, CP, CDP, SED #### [facility] [place] [address] Heading Pinner: Sly Scott DO Sodium [Moles/Vol] 137 mmol/L Normal 135-144 [facility] Comment on above: Performed By: #### L IP, CP, CDP, SED #### [facility] [place] [address] Heading Pinner: Sly Scott DO Urea nitrogen [Mass/Vol] 14 mg/dL Normal 6-20 [facility] Comment on above: Performed By: #### L IP, CP, CDP, SED #### [facility] [place] [address] Heading Pinner: Sly Scott DO Lipaseon 03-10-2023 Lipase [Catalytic activity/Vol] 32 U/L Normal 13-60 [facility] Comment on above: Performed By: #### L IP, CP, CDP, SED #### [facility] [place] [address] Heading Pinner: Sly Scott DO Sedimentation Rateon 03-10-2 023 Sedimentation Rate 9 mm/Hr Normal 0-20 [facility] Comment on above: Performed By: #### L IP, CP, CDP, SED #### [facility] [address] [place] [address] Heading Pinner: Sly Scott DO CBC with Diffon 01-06-2023 Abs. Basophil 0.00 k/uL Normal 0.0-0.2 [facility] Comment on above: Performed By: #### L IP, CP, CDP, SED #### [facility] [address] [place] [address] Heading Pinner: Sly Scott DO Abs.Neutrophil (Seg) 2.30 k/uL Normal 1.3-9.1 [facility] Comment on above: Performed By: #### L IP, CP, CDP, SED #### [facility] [address] [place] [address] Heading Pinner: Sly Scott DO Basophils/100 WBC (Bld) 0 % Normal 0-2 [facility] Comment on above: Performed By: #### L IP, CP, CDP, SED #### [facility] [address] [place] [address] Heading Pinner: Sly Scott DO Eosinophils (Bld) [#/Vol] 0.00 10*3/uL Normal 0.0-0.4 [facility] Comment on above: Performed By: #### L IP, CP, CDP, SED #### [facility] [address] [place] [address] Heading Pinner: Sly Scott DO Eosinophils/100 WBC (Bld) 1 % Normal 0-4 [facility] Comment on above: Performed By: #### L IP, CP, CDP, SED #### [facility] [address] [place] [address] Heading Pinner: Sly Scott DO Erythrocyte distribution width (RBC) [Ratio] 13.5 % Normal 11.5-14.9 [facility] Comment on above: Performed By: #### L IP, CP, CDP, SED #### [facility] [address] [place] [address] Heading Pinner: Sly Scott DO Hematocrit (Bld) [Volume fraction] 39.5 % Normal 36-46 [facility] Comment on above: Performed By: #### L IP, CP, CDP, SED #### [facility] [place] [address] Heading Pinner: Sly Scott DO Hemoglobin (Bld) [Mass/Vol] 13.9 g/dL Normal 12.0-16.0 [facility] Comment on above: Performed By: #### L IP, CP, CDP, SED #### [facility] [place] [address] Heading Pinner: Sly Scott DO Lymphocytes (Bld) [#/Vol] 1.30 10*3/uL Normal 1.0-4.8 [facility] Comment on above: Performed By: #### L IP, CP, CDP, SED #### [facility] [place] [address] Heading Pinner: Sly Scott DO Lymphocytes/100 WBC (Bld) 31 % Normal 24-44 [facility] Comment on above: Performed By: #### L IP, CP, CDP, SED #### [facility] [place] [address] Heading Pinner: Sly Scott DO MCH (RBC) [Entitic mass] 31.5 pg Normal 26-34 [facility] Comment on above: Performed By: #### L IP, CP, CDP, SED #### [facility] [place] [address] Heading Pinner: Sly Scott DO MCHC (RBC) [Mass/Vol] 35.0 g/dL Normal 31-37 [facility] Comment on above: Performed By: #### L IP, CP, CDP, SED #### [facility] [address] [place] [address] Heading Pinner: Sly Scott DO MCV (RBC) [Entitic vol] 89.8 fL Normal 80-100 [facility] Comment on above: Performed By: #### L IP, CP, CDP, SED #### [facility] [address] [place] [address] Heading Pinner: Sly Scott DO Monocytes (Bld) [#/Vol] 0.50 10*3/uL Normal 0.1-1.3 [facility] Comment on above: Performed By: #### L IP, CP, CDP, SED #### [facility] [address] [place] [address] Heading Pinner: Sly Scott DO Monocytes/100 WBC (Bld) 13 % High 1-7 [facility] Comment on above: Performed By: #### L IP, CP, CDP, SED #### [facility] [address] [place] [address] Heading Pinner: Sly Scott DO Neutrophil (Seg) 55 % Normal 36-66 [facility] Comment on above: Performed By: #### L IP, CP, CDP, SED #### [facility] [address] [place] [address] [place] [address] Heading Pinner: Sly Scott DO Platelet mean volume (Bld) [Entitic vol] 7.8 fL Normal 6.0-12.0 [facility] Comment on above: Performed By: #### L IP, CP, CDP, SED #### [facility] [place] [address] Heading Pinner: Sly Scott DO Platelets (Bld) [#/Vol] 285 10*3/uL Normal 150-450 [facility] Comment on above: Performed By: #### L IP, CP, CDP, SED #### [facility] [address] [place] [address] Heading Pinner: Sly Scott DO RBC (Bld) [#/Vol] 4.40 10*6/uL Normal 4.0-5.2 [facility] Comment on above: Performed By: #### L IP, CP, CDP, SED #### [facility] [place] [address] Heading Pinner: Sly Scott DO WBC (Bld) [#/Vol] 4.2 10*3/uL Normal 3.5-11.0 [facility] Comment on above: Performed By: #### L IP, CP, CDP, SED #### [facility] [address] [place] [address] Heading Pinner: Sly Scott DO Comp Metab w/Bili Pron 01-06 Albumin [Mass/Vol] 4.2 g/dL Normal 3.5-5.2 [facility] Comment on above: Performed By: #### L IP, CP, CDP, SED #### [facility] [address] [place] [address]. [place] [address] Heading Pinner: Sly Scott DO Alkaline Phos 69 U/L Normal 35-104 [facility] Comment on above: Performed By: #### L IP, CP, CDP, SED #### [facility] [address] [place] [address] Heading Pinner: Sly Scott DO ALT [Catalytic activity/Vol] 13 U/L Normal 5-33 [facility] Comment on above: Performed By: #### L IP, CP, CDP, SED #### [facility] [address] [place] [address] Heading Pinner: Sly Scott DO Anion gap [Moles/Vol] 7 mmol/L Low 9-17 [facility] Comment on above: Performed By: #### L IP, CP, CDP, SED #### [facility] [place] [address] Heading Pinner: Sly Scott DO AST [Catalytic activity/Vol] 24 U/L Normal <32 [facility] Comment on above: Performed By: #### L IP, CP, CDP, SED #### [facility] [place] [address] Heading Pinner: Sly Scott DO Bilirubin [Mass/Vol] 0.5 mg/dL Normal 0.3-1.2 [facility] Comment on above: Performed By: #### L IP, CP, CDP, SED #### [facility] [place] [address] Heading Pinner: Sly Scott DO Bilirubin, Indirect 0.3 mg/dL Normal 0.0-1.0 [facility] Comment on above: Performed By: #### L IP, CP, CDP, SED #### [facility] [place] [address] Heading Pinner: Sly Scott DO Bilirubin.indirect [Mass/Vol] 0.2 mg/dL Normal <0.3 [facility] Comment on above: Performed By: #### L IP, CP, CDP, SED #### [facility] [address] [facility] [place] [address] Heading Pinner: Sly Scott DO Calcium [Mass/Vol] 9.5 mg/dL Normal 8.6-10.4 [facility] Comment on above: Performed By: #### L IP, CP, CDP, SED #### [facility] [place] [address] Heading Pinner: Sly Scott DO Chloride [Moles/Vol] 103 mmol/L Normal 98-107 [facility] Comment on above: Performed By: #### L IP, CP, CDP, SED #### [facility] [address] [place] [address]. [place] [address] Heading Pinner: Sly Scott DO CO2 [Moles/Vol] 28 mmol/L Normal 20-31 [facility] Comment on above: Performed By: #### L IP, CP, CDP, SED #### [facility] [place] [address] Heading Pinner: Sly Scott DO Creatinine [Mass/Vol] 0.6 mg/dL Normal 0.5-0.9 [facility] Comment on above: Performed By: #### L IP, CP, CDP, SED #### [facility] [place] [address] Heading Pinner: Sly Scott DO GFR/1.73 sq M.predicted among non-blacks MDRD (S/P/Bld) [Vol rate/Area] mL/min/{1.73_m2} Normal >60 [facility] Comment on above: Result Comment: These results are not intended for use in patients <18 years of age. eGFR results are calculated without a race factor using the 2020 CKD-EPI equation. Careful clinical correlation is recommended, particularly when comparing to results calculated using previous equations. The CKD-EPI equation is less accurate in patients with extremes of muscle mass, extra-renal metabolism of creatine, excessive creatine ingestion, or following therapy that affects renal tubular secretion. Performed By: #### L IP, CP, CDP, SED #### [facility] [address] [place] [address] Heading Pinner: Sly Scott DO Glucose [Mass/Vol] 103 mg/dL High 70-99 [facility] Comment on above: Performed By: #### L IP, CP, CDP, SED #### [facility] [address] [place] [address]. [place] [address] Heading Pinner: Sly Scott DO Potassium [Moles/Vol] 3.8 mmol/L Normal 3.7-5.3 [facility] Comment on above: Performed By: #### L IP, CP, CDP, SED #### [facility] [address] [place] [address]. [place] [address] Heading Pinner: Sly Scott DO Protein [Mass/Vol] 8.1 g/dL Normal 6.4-8.3 [facility] Comment on above: Performed By: #### L IP, CP, CDP, SED #### [facility] [address] [place] [address]. [place] [address] Heading Pinner: Sly Scott DO Sodium [Moles/Vol] 138 mmol/L Normal 135-144 [facility] Comment on above: Performed By: #### L IP, CP, CDP, SED #### [facility] [address] [place] [address]. [place] [address] Heading Pinner: Sly Scott DO Urea nitrogen [Mass/Vol] 12 mg/dL Normal 6-20 [facility] Comment on above: Performed By: #### L IP, CP, CDP, SED #### [facility] [address] [place] [address] [place] [address] Heading Pinner: Sly Scott DO Lipaseon 01-06-2023 Lipase [Catalytic activity/Vol] 24 U/L Normal 13-60 [facility] Comment on above: Performed By: #### L IP, CP, CDP, SED #### [facility] [address] [place] [address] Heading Pinner: Sly Scott DO Sedimentation Rateon 023 Sedimentation Rate 7 mm/Hr Normal 0-20 [facility] Comment on above: Performed By: #### L IP, CP, CDP, SED #### [facility] [address] [place] [address] Heading Pinner: Sly Scott DO CBC WITH AUTO DIFFERENTIALon 11-04-2022 Absolute Eos # 0.00 [facility] Absolute Lymph # 1.20 [facility] Absolute Burnett # 0.60 [facility] Basophils (Bld) [#/Vol] 0.00 10*3/uL [facility] Basophils/100 WBC (Bld) 0 % 0 - 2 % [facility] Eosinophils/100 WBC (Bld) 1 % 0 - 4 % [facility] Hematocrit (Bld) [Volume fraction] 40.3 % 36 - 46 % [facility] Hemoglobin (Bld) [Mass/Vol] 14.3 g/dL 12.0 - 16.0 g/dL [facility] Interpretation and review of laboratory results Abnormal [facility] Lymphocytes/100 WBC (Bld) 25 % 24 - 44 % [facility] MCH (RBC) [Entitic mass] 31.7 pg 26 - 34 pg [facility] MCHC (RBC) [Mass/Vol] 35.4 g/dL 31 - 3 7 g/dL [facility] MCV (RBC) [Entitic vol] 89.7 fL 80 - 100 fL [facility] Monocytes/100 WBC (Bld) 13 % High 1 - 7 % [facility] Platelet distribution width (Bld) [Ratio] 13.2 % 11.5 - 14.9 % [facility] Platelet mean volume (Bld) [Entitic vol] 7.8 fL 6.0 - 12.0 fL [facility] Platelets (Bld) [#/Vol] 260 10*3/uL [facility] RBC (Bld) [#/Vol] 4.50 10*6/uL 4.0 - 5.2 m/uL [facility] Segmented neutrophils/100 WBC (Bld) 61 % 36 - 66 % [facility] Segs Absolute 2.80 [facility] WBC (Bld) [#/Vol] 4.6 10*3/uL [facility] CBC with Diffon 11-04-2022 Abs. Basophil 0.00 k/uL Normal 0.0-0.2 [facility] Comment on above: Performed By: #### L IP, CP, CDP, SED #### [facility] [place] [address] Heading Pinner: Sly Scott DO Abs.Neutrophil (Seg) 2.80 k/uL Normal 1.3-9.1 [facility] Comment on above: Performed By: #### L IP, CP, CDP, SED #### [facility] [address] [place] [address] Heading Pinner: Sly Scott DO Basophils/100 WBC (Bld) 0 % Normal 0-2 [facility] Comment on above: Performed By: #### L IP, CP, CDP, SED #### [facility] [address] [place] [phone] Heading Pinner: Sly Scott DO Eosinophils (Bld) [#/Vol] 0.00 10*3/uL Normal 0.0-0.4 [facility] Comment on above: Performed By: #### L IP, CP, CDP, SED #### [facility] [address] [place] [address] [place] [address] Heading Pinner: Sly Scott DO Eosinophils/100 WBC (Bld) 1 % Normal 0-4 [facility] Comment on above: Performed By: #### L IP, CP, CDP, SED #### [facility] [place] [address] Heading Pinner: Sly Scott DO Erythrocyte distribution width (RBC) [Ratio] 13.2 % Normal 11.5-14.9 [facility] Comment on above: Performed By: #### L IP, CP, CDP, SED #### [facility] [address] [place] [address] Heading Pinner: Sly Scott DO Hematocrit (Bld) [Volume fraction] 40.3 % Normal 36-46 [facility] Comment on above: Performed By: #### L IP, CP, CDP, SED #### [facility] [address] [place] [address] Heading Pinner: Sly Scott DO Hemoglobin (Bld) [Mass/Vol] 14.3 g/dL Normal 12.0-16.0 [facility] Comment on above: Performed By: #### L IP, CP, CDP, SED #### [facility] [address] [place] [address] Heading Pinner: Sly Scott DO Lymphocytes (Bld) [#/Vol] 1.20 10*3/uL Normal 1.0-4.8 [facility] Comment on above: Performed By: #### L IP, CP, CDP, SED #### [facility] [place] [address] Heading Pinner: Sly Scott DO Lymphocytes/100 WBC (Bld) 25 % Normal 24-44 [facility] Comment on above: Performed By: #### L IP, CP, CDP, SED #### [facility] [address] [place] [address] Heading Pinner: Sly Scott DO MCH (RBC) [Entitic mass] 31.7 pg Normal 26-34 [facility] Comment on above: Performed By: #### L IP, CP, CDP, SED #### [facility] [place] [address] Heading Pinner: Sly Scott DO MCHC (RBC) [Mass/Vol] 35.4 g/dL Normal 31-37 [facility] Comment on above: Performed By: #### L IP, CP, CDP, SED #### [facility] [address] [place] [address] Heading Pinner: Sly Scott DO MCV (RBC) [Entitic vol] 89.7 fL Normal 80-100 [facility] Comment on above: Performed By: #### L IP, CP, CDP, SED #### [facility] [address] [place] [address] Heading Pinner: Sly Scott DO Monocytes (Bld) [#/Vol] 0.60 10*3/uL Normal 0.1-1.3 [facility] Comment on above: Performed By: #### L IP, CP, CDP, SED #### [facility] [address] [place] [address] Heading Pinner: Sly Scott DO Monocytes/100 WBC (Bld) 13 % High 1-7 [facility] Comment on above: Performed By: #### L IP, CP, CDP, SED #### [facility] [address] [place] [address] Heading Pinner: Sly Scott DO Neutrophil (Seg) 61 % Normal 36-66 [facility] Comment on above: Performed By: #### L IP, CP, CDP, SED #### [facility] [address] [place] [address] Heading Pinner: Sly Scott DO Platelet mean volume (Bld) [Entitic vol] 7.8 fL Normal 6.0-12.0 [facility] Comment on above: Performed By: #### L IP, CP, CDP, SED #### [facility] [address] [place] [address] Heading Pinner: Sly Scott DO Platelets (Bld) [#/Vol] 260 10*3/uL Normal 150-450 [facility] Comment on above: Performed By: #### L IP, CP, CDP, SED #### [facility] [address] [place] [address] Heading Pinner: Sly Scott DO RBC (Bld) [#/Vol] 4.50 10*6/uL Normal 4.0-5.2 [facility] Comment on above: Performed By: #### L IP, CP, CDP, SED #### [facility] [address] [place] [address] Heading Pinner: Sly Scott DO WBC (Bld) [#/Vol] 4.6 10*3/uL Normal 3.5-11.0 [facility] Comment on above: Performed By: #### L IP, CP, CDP, SED #### [facility] [address] [facility] [place] [address] Heading Pinner: Sly Scott DO COMP METABOLIC W/ BILI JOSIAS Mendosa 11-04-2022 Albumin [Mass/Vol] 4.5 g/dL 3.5 - 5.2 g/dL [facility] ALP [Catalytic activity/Vol] 66 U/L 35 - 104 U/L [facility] ALT [Catalytic activity/Vol] 17 U/L 5 - 33 U/L [facility] Anion gap [Moles/Vol] 8 mmol/L Low 9 - 17 mmol/L [facility] AST [Catalytic activity/Vol] 26 U/L NINF - 32 U/L [facility] Bilirubin [Mass/Vol] 0.6 mg/dL 0.3 - 1 .2 mg/dL [facility] Bilirubin.direct [Mass/Vol] 0.2 mg/dL NINF - 0.3 mg/dL [facility] Bilirubin.indirect [Mass/Vol] 0.4 mg/dL 0.0 - 1.0 mg/dL [facility] Calcium [Mass/Vol] 9.5 mg/dL 8.6 - 10. 4 mg/dL [facility] Chloride [Moles/Vol] 102 mmol/L 98 - 10 7 mmol/L [facility] CO2 [Moles/Vol] 30 mmol/L 20 - 31 mmol/L [facility] Creatinine [Mass/Vol] 0.61 mg/dL 0.50 - 0.90 mg/dL [facility] GFR/1.73 sq M.predicted MDRD (S/P/Bld) [Vol rate/Area] - PINF [facility] Comment on above: These results are not intended for use in patients <18 years of age. eGFR results are calculated without a race factor using the 2020 CKD-EPI equation. Careful clinical correlation is recommended, particularly when comparing to results calculated using previous equations. The CKD-EPI equation is less accurate in patients with extremes of muscle mass, extra-renal metabolism of creatine, excessive creatine ingestion, or following therapy that affects renal tubular secretion. Glucose [Mass/Vol] 88 mg/dL 70 - 99 mg/dL [facility] Interpretation and review of laboratory results Abnormal [facility] Potassium [Moles/Vol] 3.9 mmol/L 3.7 - 5.3 mmol/L [facility] Protein [Mass/Vol] 7.8 g/dL 6.4 - 8.3 g/dL [facility] Sodium [Moles/Vol] 140 mmol/L 135 - 144 mmol/L [facility] Urea nitrogen [Mass/Vol] 14 mg/dL 6 - 20 mg/dL [facility] Comp Metab w/Bili Pron 11-04 Albumin [Mass/Vol] 4.5 g/dL Normal 3.5-5.2 [facility] Comment on above: Performed By: #### L IP, CP, CDP, SED #### [facility] [address] [place] [address] Heading Pinner: Sly Scott DO Alkaline Phos 66 U/L Normal 35-104 [facility] Comment on above: Performed By: #### L IP, CP, CDP, SED #### [facility] [address] [place] [address] Heading Pinner: Sly Scott DO ALT [Catalytic activity/Vol] 17 U/L Normal 5-33 [facility] Comment on above: Performed By: #### L IP, CP, CDP, SED #### [facility] [address] [place] [address] Heading Pinner: Sly Scott DO Anion gap [Moles/Vol] 8 mmol/L Low 9-17 [facility] Comment on above: Performed By: #### L IP, CP, CDP, SED #### [facility] [place] [address] Heading Pinner: Sly Scott DO AST [Catalytic activity/Vol] 26 U/L Normal <32 [facility] Comment on above: Performed By: #### L IP, CP, CDP, SED #### [facility] [address] [place] [address] Heading Pinner: Sly Scott DO Bilirubin [Mass/Vol] 0.6 mg/dL Normal 0.3-1.2 [facility] Comment on above: Performed By: #### L IP, CP, CDP, SED #### [facility] [address] [place] [address] Heading Pinner: Sly Scott DO Bilirubin, Indirect 0.4 mg/dL Normal 0.0-1.0 [facility] Comment on above: Performed By: #### L IP, CP, CDP, SED #### [facility] [address] [place] [address] Heading Pinner: Sly Scott DO Bilirubin.indirect [Mass/Vol] 0.2 mg/dL Normal <0.3 [facility] Comment on above: Performed By: #### L IP, CP, CDP, SED #### [facility] [place] [address] Heading Pinner: Sly Scott DO Calcium [Mass/Vol] 9.5 mg/dL Normal 8.6-10.4 [facility] Comment on above: Performed By: #### L IP, CP, CDP, SED #### [facility] [address] [place] [address]. [place] [address] Heading Pinner: Sly Scott DO Chloride [Moles/Vol] 102 mmol/L Normal 98-107 [facility] Comment on above: Performed By: #### L IP, CP, CDP, SED #### [facility] [address] [place] [address]. [place] [address] Heading Pinner: Sly Scott DO CO2 [Moles/Vol] 30 mmol/L Normal 20-31 [facility] Comment on above: Performed By: #### L IP, CP, CDP, SED #### [facility] [facility] [place] [address] Heading Pinner: Sly Scott DO Creatinine [Mass/Vol] 0.61 mg/dL Normal 0.50-0.90 [facility] Comment on above: Performed By: #### L IP, CP, CDP, SED #### [facility] [address] [place] [address]. [place] [address] Heading Pinner: Sly Scott DO GFR/1.73 sq M.predicted among non-blacks MDRD (S/P/Bld) [Vol rate/Area] mL/min/{1.73_m2} Normal >60 [facility] Comment on above: Result Comment: These results are not intended for use in patients <18 years of age. eGFR results are calculated without a race factor using the 2020 CKD-EPI equation. Careful clinical correlation is recommended, particularly when comparing to results calculated using previous equations. The CKD-EPI equation is less accurate in patients with extremes of muscle mass, extra-renal metabolism of creatine, excessive creatine ingestion, or following therapy that affects renal tubular secretion. Performed By: #### L IP, CP, CDP, SED #### [facility] [address] [place] [address]. [place] [address] Heading Pinner: Sly Scott DO Glucose [Mass/Vol] 88 mg/dL Normal 70-99 [facility] Comment on above: Performed By: #### L IP, CP, CDP, SED #### [facility] [address] [place] [address]. [place] [address] Heading Pinner: Sly Scott DO Potassium [Moles/Vol] 3.9 mmol/L Normal 3.7-5.3 [facility] Comment on above: Performed By: #### L IP, CP, CDP, SED #### [facility] [address] [place] [address]. [place] [address] Heading Pinner: Sly Scott DO Protein [Mass/Vol] 7.8 g/dL Normal 6.4-8.3 [facility] Comment on above: Performed By: #### L IP, CP, CDP, SED #### [facility] [address] [place] [address]. [place] [address] Heading Pinner: Sly Scott DO Sodium [Moles/Vol] 140 mmol/L Normal 135-144 [facility] Comment on above: Performed By: #### L IP, CP, CDP, SED #### [facility] [address] [place] [address] Heading Pinner: Sly Scott DO Urea nitrogen [Mass/Vol] 14 mg/dL Normal 6-20 [facility] Comment on above: Performed By: #### L IP, CP, CDP, SED #### [facility] [address] [place] [address] Heading Pinner: Sly Scott DO LIPASEon 11-04-2022 Lipase [Catalytic activity/Vol] 25 U/L 13 - 60 U/L [facility] Lipaseon 11-04-2022 Lipase [Catalytic activity/Vol] 25 U/L Normal 13-60 [facility] Comment on above: Performed By: #### L IP, CP, CDP, SED #### [facility] [address] [place] [address] Heading Pinner: Sly Scott DO No Panel Informationon 11-04 [facility] SEDIMENTATION RATEon 023 ESR (Bld) [Velocity] 4 mm/h [facility] Sedimentation Rateon 023 Sedimentation Rate 4 mm/Hr Normal 0-20 [facility] Comment on above: Performed By: #### L IP, CP, CDP, SED #### [facility] [address] [place] [address] Heading Pinner: Sly Scott DO CBC WITH AUTO DIFFERENTIALon 09-09-2022 Absolute Eos # 0.10 [facility] Absolute Lymph # 1.20 [facility] Absolute Burnett # 0.60 [facility] Basophils (Bld) [#/Vol] 0.00 10*3/uL [facility] Basophils/100 WBC (Bld) 1 % 0 - 2 % [facility] Eosinophils/100 WBC (Bld) 1 % 0 - 4 % [facility] Hematocrit (Bld) [Volume fraction] 40.8 % 36 - 46 % [facility] Hemoglobin (Bld) [Mass/Vol] 13.9 g/dL 12.0 - 16.0 g/dL [facility] Interpretation and review of laboratory results Abnormal [facility] Lymphocytes/100 WBC (Bld) 27 % 24 - 44 % [facility] MCH (RBC) [Entitic mass] 31.1 pg 26 - 34 pg [facility] MCHC (RBC) [Mass/Vol] 34.2 g/dL 31 - 3 7 g/dL [facility] MCV (RBC) [Entitic vol] 90.9 fL 80 - 100 fL [facility] Monocytes/100 WBC (Bld) 13 % High 1 - 7 % [facility] Platelet distribution width (Bld) [Ratio] 12.8 % 11.5 - 14.9 % [facility] Platelet mean volume (Bld) [Entitic vol] 7.5 fL 6.0 - 12.0 fL [facility] Platelets (Bld) [#/Vol] 246 10*3/uL [facility] RBC (Bld) [#/Vol] 4.49 10*6/uL 4.0 - 5.2 m/uL [facility] Segmented neutrophils/100 WBC (Bld) 58 % 36 - 66 % [facility] Segs Absolute 2.60 [facility] WBC (Bld) [#/Vol] 4.4 10*3/uL [facility] COMP METABOLIC W/ BILI PROFI Navya 09-09-2022 Albumin [Mass/Vol] 4.3 g/dL 3.5 - 5.2 g/dL [facility] ALP [Catalytic activity/Vol] 68 U/L 35 - 104 U/L [facility] ALT [Catalytic activity/Vol] 18 U/L 5 - 33 U/L [facility] Anion gap [Moles/Vol] 9 mmol/L 9 - 17 mmol/L [facility] AST [Catalytic activity/Vol] 28 U/L NINF - 32 U/L [facility] Bilirubin [Mass/Vol] 0.6 mg/dL 0.3 - 1 .2 mg/dL [facility] Bilirubin.direct [Mass/Vol] 0.1 mg/dL NINF - 0.3 mg/dL [facility] Bilirubin.indirect [Mass/Vol] 0.5 mg/dL 0.0 - 1.0 mg/dL [facility] Calcium [Mass/Vol] 9.3 mg/dL 8.6 - 10. 4 mg/dL [facility] Chloride [Moles/Vol] 104 mmol/L 98 - 10 7 mmol/L [facility] CO2 [Moles/Vol] 27 mmol/L 20 - 31 mmol/L [facility] Creatinine [Mass/Vol] 0.62 mg/dL 0.50 - 0.90 mg/dL [facility] GFR/1.73 sq M.predicted MDRD (S/P/Bld) [Vol rate/Area] - PINF [facility] Comment on above: These results are not intended for use in patients <18 years of age. eGFR results are calculated without a race factor using the 2020 CKD-EPI equation. Careful clinical correlation is recommended, particularly when comparing to results calculated using previous equations. The CKD-EPI equation is less accurate in patients with extremes of muscle mass, extra-renal metabolism of creatine, excessive creatine ingestion, or following therapy that affects renal tubular secretion. Glucose [Mass/Vol] 98 mg/dL 70 - 99 mg/dL [facility] Potassium [Moles/Vol] 4.3 mmol/L 3.7 - 5.3 mmol/L [facility] Protein [Mass/Vol] 7.1 g/dL 6.4 - 8.3 g/dL [facility] Sodium [Moles/Vol] 140 mmol/L 135 - 144 mmol/L [facility] Urea nitrogen [Mass/Vol] 10 mg/dL 6 - 20 mg/dL [facility] LIPASEon 09-09-2022 Lipase [Catalytic activity/Vol] 24 U/L 13 - 60 U/L [facility] No Panel Informationon 09-09 [facility] SEDIMENTATION RATEon 023 ESR (Bld) [Velocity] 9 mm/h [facility] CBC WITH AUTO DIFFERENTIALon 07-15-2022 Absolute Eos # 0.00 [facility] Absolute Lymph # 1.30 [facility] Absolute Burnett # 0.60 [facility] Basophils (Bld) [#/Vol] 0.00 10*3/uL [facility] Basophils/100 WBC (Bld) 0 % 0 - 2 % [facility] Eosinophils/100 WBC (Bld) 0 % 0 - 4 % [facility] Hematocrit (Bld) [Volume fraction] 41.8 % 36 - 46 % [facility] Hemoglobin (Bld) [Mass/Vol] 14.1 g/dL 12.0 - 16.0 g/dL [facility] Interpretation and review of laboratory results Abnormal [facility] Lymphocytes/100 WBC (Bld) 22 % Low 24 - 44 % [facility] MCH (RBC) [Entitic mass] 30.9 pg 26 - 34 pg [facility] MCHC (RBC) [Mass/Vol] 33.8 g/dL 31 - 3 7 g/dL [facility] MCV (RBC) [Entitic vol] 91.4 fL 80 - 100 fL [facility] Monocytes/100 WBC (Bld) 11 % High 1 - 7 % [facility] Platelet distribution width (Bld) [Ratio] 12.8 % 11.5 - 14.9 % [facility] Platelet mean volume (Bld) [Entitic vol] 8.1 fL 6.0 - 12.0 fL [facility] Platelets (Bld) [#/Vol] 293 10*3/uL [facility] RBC (Bld) [#/Vol] 4.58 10*6/uL 4.0 - 5.2 m/uL [facility] Segmented neutrophils/100 WBC (Bld) 67 % High 36 - 66 % [facility] Segs Absolute 4.00 [facility] WBC (Bld) [#/Vol] 5.9 10*3/uL [facility] COMP METABOLIC W/ BILI PROFI Navya 07-15-2022 Albumin [Mass/Vol] 4.3 g/dL 3.5 - 5.2 g/dL [facility] ALP (Bld) [Catalytic activity/Vol] 70 U/L 35 - 104 U/L [facility] ALT [Catalytic activity/Vol] 16 U/L 5 - 33 U/L [facility] Anion gap [Moles/Vol] 11 mmol/L 9 - 17 mmol/L [facility] AST [Catalytic activity/Vol] 24 U/L NINF - 32 U/L [facility] Bilirubin [Mass/Vol] 0.5 mg/dL 0.3 - 1 .2 mg/dL [facility] Bilirubin, Indirect 0.3 mg/dL 0.0 - 1. 0 mg/dL [facility] Bilirubin.indirect [Mass/Vol] 0.2 mg/dL NINF - 0.3 mg/dL [facility] Calcium [Mass/Vol] 9.2 mg/dL 8.6 - 10. 4 mg/dL [facility] Chloride [Moles/Vol] 100 mmol/L 98 - 10 7 mmol/L [facility] CO2 [Moles/Vol] 26 mmol/L 20 - 31 mmol/L [facility] Creatinine [Mass/Vol] 0.6 mg/dL 0.50 - 0.90 mg/dL [facility] GFR/1.73 sq M.predicted MDRD (S/P/Bld) [Vol rate/Area] - PINF [facility] Comment on above: Effective Mar 28, 2022 These results are not intended for use in patients <18 years of age. eGFR results are calculated without a race factor using the 2020 CKD-EPI equation. Careful clinical correlation is recommended, particularly when comparing to results calculated using previous equations. The CKD-EPI equation is less accurate in patients with extremes of muscle mass, extra-renal metabolism of creatine, excessive creatine ingestion, or following therapy that affects renal tubular secretion. Glucose [Mass/Vol] 88 mg/dL 70 - 99 mg/dL [facility] Potassium [Moles/Vol] 4.0 mmol/L 3.7 - 5.3 mmol/L [facility] Protein [Mass/Vol] 7.6 g/dL 6.4 - 8.3 g/dL [facility] Sodium [Moles/Vol] 137 mmol/L 135 - 144 mmol/L [facility] Urea nitrogen (BldV) [Mass/Vol] 12 mg/dL 6 - 20 mg/dL [facility] LIPASEon 07-15-2022 Lipase [Catalytic activity/Vol] 21 U/L 13 - 60 U/L [facility] No Panel Informationon 07-15 [facility] SEDIMENTATION RATEon 023 Sed Rate 13 [facility] CBC WITH AUTO DIFFERENTIALon 05-06-2022 Absolute Eos # 0.00 [facility] Absolute Lymph # 1.20 [facility] Absolute Burnett # 0.70 [facility] Basophils (Bld) [#/Vol] 0.00 10*3/uL [facility] Basophils/100 WBC (Bld) 0 % 0 - 2 % [facility] Eosinophils/100 WBC (Bld) 1 % 0 - 4 % [facility] Hematocrit (Bld) [Volume fraction] 42.1 % 36 - 46 % [facility] Hemoglobin (Bld) [Mass/Vol] 14.4 g/dL 12.0 - 16.0 g/dL [facility] Interpretation and review of laboratory results Abnormal [facility] Lymphocytes/100 WBC (Bld) 26 % 24 - 44 % [facility] MCH (RBC) [Entitic mass] 31.5 pg 26 - 34 pg [facility] MCHC (RBC) [Mass/Vol] 34.3 g/dL 31 - 3 7 g/dL [facility] MCV (RBC) [Entitic vol] 91.8 fL 80 - 100 fL [facility] Monocytes/100 WBC (Bld) 15 % High 1 - 7 % [facility] Platelet distribution width (Bld) [Ratio] 13.6 % 11.5 - 14.9 % [facility] Platelet mean volume (Bld) [Entitic vol] 7.5 fL 6.0 - 12.0 fL [facility] Platelets (Bld) [#/Vol] 318 10*3/uL [facility] RBC (Bld) [#/Vol] 4.59 10*6/uL 4.0 - 5.2 m/uL [facility] Segmented neutrophils/100 WBC (Bld) 58 % 36 - 66 % [facility] Segs Absolute 2.70 [facility] WBC (Bld) [#/Vol] 4.8 10*3/uL [facility] COMP METABOLIC W/ BILI PROFI Navya 05-06-2022 Albumin [Mass/Vol] 4.3 g/dL 3.5 - 5.2 g/dL [facility] ALP (Bld) [Catalytic activity/Vol] 88 U/L 35 - 104 U/L [facility] ALT [Catalytic activity/Vol] 15 U/L 5 - 33 U/L [facility] Anion gap [Moles/Vol] 11 mmol/L 9 - 17 mmol/L [facility] AST [Catalytic activity/Vol] 25 U/L NINF - 32 U/L [facility] Bilirubin [Mass/Vol] 0.6 mg/dL 0.3 - 1 .2 mg/dL [facility] Bilirubin, Indirect 0.4 mg/dL 0.00 - 1.00 mg/dL [facility] Bilirubin.indirect [Mass/Vol] 0.2 mg/dL NINF - 0.31 mg/dL [facility] Calcium [Mass/Vol] 9.4 mg/dL 8.6 - 10. 4 mg/dL [facility] Chloride [Moles/Vol] 101 mmol/L 98 - 10 7 mmol/L [facility] CO2 [Moles/Vol] 26 mmol/L 20 - 31 mmol/L [facility] Creatinine [Mass/Vol] 0.6 mg/dL 0.50 - 0.90 mg/dL [facility] GFR/1.73 sq M.predicted MDRD (S/P/Bld) [Vol rate/Area] - PINF [facility] Comment on above: Effective Mar 28, 2022 These results are not intended for use in patients <18 years of age. eGFR results are calculated without a race factor using the 2020 CKD-EPI equation. Careful clinical correlation is recommended, particularly when comparing to results calculated using previous equations. The CKD-EPI equation is less accurate in patients with extremes of muscle mass, extra-renal metabolism of creatine, excessive creatine ingestion, or following therapy that affects renal tubular secretion. Glucose [Mass/Vol] 82 mg/dL 70 - 99 mg/dL [facility] Potassium [Moles/Vol] 3.8 mmol/L 3.7 - 5.3 mmol/L [facility] Protein [Mass/Vol] 7.9 g/dL 6.4 - 8.3 g/dL [facility] Sodium [Moles/Vol] 138 mmol/L 135 - 144 mmol/L [facility] Urea nitrogen (BldV) [Mass/Vol] 11 mg/dL 6 - 20 mg/dL [facility] LIPASEon 05-06-2022 Lipase [Catalytic activity/Vol] 25 U/L 13 - 60 U/L [facility] No Panel Informationon 05-06 [facility] SEDIMENTATION RATEon 022 Sed Rate 8 [facility] CBC WITH AUTO DIFFERENTIALon 03-11-2022 Absolute Eos # 0.00 [facility] Absolute Lymph # 1.40 [facility] Absolute Burnett # 0.40 [facility] Basophils (Bld) [#/Vol] 0.00 10*3/uL [facility] Basophils/100 WBC (Bld) 0 % 0 - 2 % [facility] Eosinophils/100 WBC (Bld) 1 % 0 - 4 % [facility] Hematocrit (Bld) [Volume fraction] 42.2 % 36 - 46 % [facility] Hemoglobin (Bld) [Mass/Vol] 14.7 g/dL 12 - 16 g/dL [facility] Interpretation and review of laboratory results Abnormal [facility] Lymphocytes/100 WBC (Bld) 26 % 24 - 44 % [facility] MCH (RBC) [Entitic mass] 31.4 pg 26 - 34 pg [facility] MCHC (RBC) [Mass/Vol] 34.9 g/dL 31 - 3 7 g/dL [facility] MCV (RBC) [Entitic vol] 90.1 fL 80 - 100 fL [facility] Monocytes/100 WBC (Bld) 8 % High 1 - 7 % [facility] Platelet distribution width (Bld) [Ratio] 12.7 % 11.5 - 14.9 % [facility] Platelet mean volume (Bld) [Entitic vol] 7.2 fL 6 - 12 fL [facility] Platelets (Bld) [#/Vol] 303 10*3/uL [facility] RBC (Bld) [#/Vol] 4.68 10*6/uL 4 - 5.2 m/uL [facility] Segmented neutrophils/100 WBC (Bld) 65 % 36 - 66 % [facility] Segs Absolute 3.50 [facility] WBC (Bld) [#/Vol] 5.3 10*3/uL [facility] COMP METABOLIC W/ BILI PROFI Navya 03-11-2022 Albumin [Mass/Vol] 4.4 g/dL 3.5 - 5.2 g/dL [facility] ALP (Bld) [Catalytic activity/Vol] 80 U/L 35 - 104 U/L [facility] ALT [Catalytic activity/Vol] 22 U/L 5 - 33 U/L [facility] Anion gap [Moles/Vol] 12 mmol/L 9 - 17 mmol/L [facility] AST [Catalytic activity/Vol] 32 U[facility] Bilirubin [Mass/Vol] 0.6 mg/dL 0.3 - 1 .2 mg/dL [facility] Bilirubin, Indirect 0.4 mg/dL 0 - 1 mg/dL [facility] Bilirubin.indirect [Mass/Vol] 0.2 mg/dL NINF - 0.31 mg/dL [facility] Calcium [Mass/Vol] 9.7 mg/dL 8.6 - 10. 4 mg/dL [facility] Chloride [Moles/Vol] 100 mmol/L 98 - 10 7 mmol/L [facility] CO2 [Moles/Vol] 27 mmol/L 20 - 31 mmol/L [facility] Creatinine [Mass/Vol] 0.53 mg/dL 0.5 - 0.9 mg/dL [facility] Free PSA/Total PSA [Mass fraction] 8.0 g/dL 6.4 - 8.3 g/dL [facility] GFR >60 60 - PI NF mL/min [facility] GFR Non- >60 60 - PINF mL/min [facility] GFR/1.73 sq M.predicted MDRD (S/P/Bld) [Vol rate/Area] [facility] Comment on above: Average GFR for 20-2 9 years old: 116 mL/min/1.73sq m Chronic Kidney Disease: <60 mL/min/1.73sq m Kidney failure: <15 mL/min/1.73sq m eGFR calculated using average adult body mass. Additional eGFR calculator available at: http://www.[employer]/multiple_crcl_2012.htm Glucose [Mass/Vol] 105 mg/dL High 70 - 99 mg/dL [facility] Interpretation and review of laboratory results Abnormal [facility] Potassium [Moles/Vol] 3.9 mmol/L 3.7 - 5.3 mmol/L [facility] Sodium [Moles/Vol] 139 mmol/L 135 - 144 mmol/L [facility] Urea nitrogen (BldV) [Mass/Vol] 12 mg/dL 6 - 20 mg/dL [facility] LIPASEon 03-11-2022 Lipase [Catalytic activity/Vol] 28 U/L 13 - 60 U/L [facility] No Panel Informationon 03-11 [facility] POCT HCG, Prenancy, Uron Beta HCG ( test) Ql (U) Negative NEGATIVE [facility] Comment on above: HCG screen is sensitive to 25 mIU/mL. However this test may mixing picker tender lower levels of HCG. If further evaluation is needed please request quantitative HCG. [facility] SEDIMENTATION RATEon 022 Sed Rate 17 [facility] C-Reactive Proteinon 022 CRP [Mass/Vol] 5 mg/L 0 - 5 mg/L [facility] CBC WITH AUTO DIFFERENTIALon 01-14-2022 Absolute Eos # 0.10 [facility] Absolute Lymph # 1.40 [facility] Absolute Burnett # 0.50 [facility] Basophils (Bld) [#/Vol] 0.00 10*3/uL [facility] Basophils/100 WBC (Bld) 1 % 0 - 2 % [facility] Eosinophils/100 WBC (Bld) 1 % 0 - 4 % [facility] Hematocrit (Bld) [Volume fraction] 40.5 % 36 - 46 % [facility] Hemoglobin (Bld) [Mass/Vol] 14.0 g/dL 12 - 16 g/dL [facility] Interpretation and review of laboratory results Abnormal [facility] Lymphocytes/100 WBC (Bld) 30 % 24 - 44 % [facility] MCH (RBC) [Entitic mass] 31.3 pg 26 - 34 pg [facility] MCHC (RBC) [Mass/Vol] 34.6 g/dL 31 - 3 7 g/dL [facility] MCV (RBC) [Entitic vol] 90.3 fL 80 - 100 fL [facility] Monocytes/100 WBC (Bld) 11 % High 1 - 7 % [facility] Platelet distribution width (Bld) [Ratio] 13.4 % 11.5 - 14.9 % [facility] Platelet mean volume (Bld) [Entitic vol] 7.6 fL 6 - 12 fL [facility] Platelets (Bld) [#/Vol] 266 10*3/uL [facility] RBC (Bld) [#/Vol] 4.49 10*6/uL 4 - 5.2 m/uL [facility] Segmented neutrophils/100 WBC (Bld) 57 % 36 - 66 % [facility] Segs Absolute 2.70 [facility] WBC (Bld) [#/Vol] 4.7 10*3/uL [facility] COMP METABOLIC W/ BILI JOSIAS Mendosa 01-14-2022 Albumin [Mass/Vol] 4.3 g/dL 3.5 - 5.2 g/dL [facility] ALP (Bld) [Catalytic activity/Vol] 82 U/L 35 - 104 U/L [facility] ALT [Catalytic activity/Vol] 40 U/L High 5 - 33 U/L [facility] Anion gap [Moles/Vol] 10 mmol/L 9 - 17 mmol/L [facility] AST [Catalytic activity/Vol] 51 U/L High NINF - 32 U/L [facility] Bilirubin [Mass/Vol] 0.56 mg/dL 0.3 - 1 .2 mg/dL [facility] Bilirubin, Indirect 0.42 mg/dL 0 - 1 mg/dL [facility] Bilirubin.indirect [Mass/Vol] 0.14 mg/dL NINF - 0.31 mg/dL [facility] Calcium [Mass/Vol] 9.4 mg/dL 8.6 - 10. 4 mg/dL [facility] Chloride [Moles/Vol] 101 mmol/L 98 - 10 7 mmol/L [facility] CO2 [Moles/Vol] 26 mmol/L 20 - 31 mmol/L [facility] Creatinine [Mass/Vol] 0.53 mg/dL 0.5 - 0.9 mg/dL [facility] Free PSA/Total PSA [Mass fraction] 7.4 g/dL 6.4 - 8.3 g/dL [facility] GFR >60 60 - PI NF mL/min [facility] GFR Non- >60 60 - PINF mL/min [facility] GFR/1.73 sq M.predicted MDRD (S/P/Bld) [Vol rate/Area] [facility] Comment on above: Average GFR for 20-2 9 years old: 116 mL/min/1.73sq m Chronic Kidney Disease: <60 mL/min/1.73sq m Kidney failure: <15 mL/min/1.73sq m eGFR calculated using average adult body mass. Additional eGFR calculator available at: http://www.[employer]/multiple_crcl_2012.htm Glucose [Mass/Vol] 96 mg/dL 70 - 99 mg/dL [facility] Interpretation and review of laboratory results Abnormal [facility] Potassium [Moles/Vol] 3.9 mmol/L 3.7 - 5.3 mmol/L [facility] Sodium [Moles/Vol] 137 mmol/L 135 - 144 mmol/L [facility] Urea nitrogen (BldV) [Mass/Vol] 9 mg/dL 6 - 20 mg/dL [facility] LIPASEon 01-14-2022 Lipase [Catalytic activity/Vol] 23 U/L 13 - 60 U/L [facility] No Panel Informationon 01-14 [facility] SEDIMENTATION RATEon 022 Sed Rate 8 [facility] CBC WITH AUTO DIFFERENTIALOr dered By: Catrachita Mitchell on 03-05-2021 Absolute Bands # 0.04 RECESS. Work Phone: Absolute Eos # 0.07 RECESS. Work Phone: Absolute Immature Granulocyte NOT REPORTED RECESS. Work Phone: Absolute Lymph # 1.37 RECESS. Work Phone: Absolute Burnett # 0.33 [employer] Phone: Bands 1 % 0 - 10 % RECESS. Work Phone: Basophils (Bld) [#/Vol] 0.00 10*3/uL RECESS. Work Phone: Basophils/100 WBC (Bld) 0 % 0 - 2 % RECESS. Work Phone: Differential Type NOT REPORTED [facility] Phone: Eosinophils/100 WBC (Bld) 2 % 0 - 4 % RECESS. Work Phone: Hematocrit (Bld) [Volume fraction] 40.8 % 36 - 46 % [facility] Phone: Hemoglobin.gastrointe stinal spec 1 Ql (Stl) 13.5 g/dL 12.0 - 16.0 g/dL [facility] Phone: Immature Granulocytes NOT REPORTED 0 % M [employer] Phone: Interpretation and review of laboratory results Abnormal [facility] Phone: Lymphocytes/100 WBC (Bld) 37 % 24 - 44 % [facility] Phone: MCH (RBC) [Entitic mass] 28.9 pg 26 - 34 pg [facility] Phone: MCHC (RBC) [Mass/Vol] 33.2 g/dL 31 - 3 7 g/dL [employer] Phone: MCV (RBC) [Entitic vol] 87.0 fL 80 - 100 fL [employer] Phone: Monocytes/100 WBC (Bld) 9 % High 1 - 7 % [employer] Phone: Morphology Richard (Bld) [Interp] ANISOCYTOSIS PRESENT [facility] Phone: Morphology Richard (Bld) [Interp] HYPOCHROMIA PRESENT [facility] Phone: Morphology Richard (Bld) [Interp] FEW TEARDROPS [employer] Phone: NRBC Automated NOT REPORTED per 100 WBC [facility] Phone: Platelet distribution width (Bld) [Ratio] 16.6 % High 11.5 - 14.9 % [employer] Phone: Platelet Estimate NOT REPORTED [employer] Phone: Platelet mean volume (Bld) [Entitic vol] 7.9 fL 6.0 - 12.0 fL [facility] Phone: Platelets (Bld) [#/Vol] 250 10*3/uL [facility] Phone: RBC (Bld) [#/Vol] 4.69 10*6/uL 4.0 - 5.2 m/uL [facility] Phone: RBC (Bld) [#/Vol] NOT REPORTED [employer] Phone: Segmented neutrophils/100 WBC (Bld) 51 % 36 - 66 % [employer] Phone: Segs Absolute 1.89 [facility] Phone: WBC (Bld) [#/Vol] 3.7 10*3/uL [facility] Phone: WBC (Bld) [#/Vol] NOT REPORTED [facility] Phone: [employer] Phone: COMP METABOLIC W/ BILI PROFI LEOrdered By: Catrachita Mitchell on 03-05-2021 Albumin [Mass/Vol] 4.3 g/dL 3.5 - 5.2 g/dL [facility] Phone: Albumin/Globulin Ratio NOT REPORTED [employer] Phone: ALP (Bld) [Catalytic activity/Vol] 76 U/L 35 - 104 U/L [facility] Phone: ALT [Catalytic activity/Vol] 16 U/L 5 - 33 U/L [facility] Phone: Anion gap [Moles/Vol] 10 mmol/L 9 - 17 mmol/L [employer] Phone: AST [Catalytic activity/Vol] 25 U/L <32 [employer] Phone: Bilirubin [Mass/Vol] 0.47 mg/dL 0.3 - 1 .2 mg/dL [facility] Phone: Bilirubin, Indirect 0.35 mg/dL 0.00 - 1.00 mg/dL [facility] Phone: Bilirubin.indirect [Mass/Vol] 0.12 mg/dL <0.31 [facility] Phone: Calcium [Mass/Vol] 9.3 mg/dL 8.6 - 10. 4 mg/dL [facility] Phone: Chloride [Moles/Vol] 105 mmol/L 98 - 10 7 mmol/L [facility] Phone: CO2 [Moles/Vol] 25 mmol/L 20 - 31 mmol/L [facility] Phone: Creatinine [Mass/Vol] 0.5 mg/dL 0.50 - 0.90 mg/dL [facility] Phone: Free PSA/Total PSA [Mass fraction] 7.7 g/dL 6.4 - 8.3 g/dL [employer] Phone: GFR >60 >60 mL/min [facility] Phone: GFR Non- >60 >60 mL/min [employer] Phone: GFR/1.73 sq M.predicted MDRD (S/P/Bld) [Vol rate/Area] [facility] Phone: Comment on above: Average GFR for 20-2 9 years old: 116 mL/min/1.73sq m Chronic Kidney Disease: <60 mL/min/1.73sq m Kidney failure: <15 mL/min/1.73sq m eGFR calculated using average adult body mass. Additional eGFR calculator available at: http://www.[employer].com/multiple_crcl_2012.htm GFR/1.73 sq M.predicted MDRD (S/P/Bld) [Vol rate/Area] NOT REPORTED [facility] Phone: Glucose [Mass/Vol] 95 mg/dL 70 - 99 mg/dL [facility] Phone: Potassium [Moles/Vol] 4.6 mmol/L 3.7 - 5.3 mmol/L [employer] Phone: Sodium [Moles/Vol] 140 mmol/L 135 - 144 mmol/L [employer] Phone: Urea nitrogen (BldV) [Mass/Vol] 14 mg/dL 6 - 20 mg/dL [employer] Phone: LIPASEOrdered By: Catrachita holly on 03-05-2021 Lipase [Catalytic activity/Vol] 21 U/L 13 - 60 U/L [facility] Phone: No Panel InformationOrdered By: Catrachita Mitchell on 03-05-2021 [employer] Phone: SEDIMENTATION RATEOrdered By : Catrachita Mitchell on 03-05-2021 Sed Rate 7 mm 0 - 20 mm [employer] Phone: [facility] Phone: CBC WITH AUTO DIFFERENTIALOr dered By: Catrachita Mitchell on 02-05-2021 Absolute Bands # 0.09 [facility] Phone: Absolute Eos # 0.09 [facility] Phone: Absolute Immature Granulocyte NOT REPORTED [employer] Phone: Absolute Lymph # 1.88 [facility] Phone: Absolute Burnett # 0.39 [employer] Phone: Bands 2 % 0 - 10 % [employer] Phone: Basophils (Bld) [#/Vol] 0.00 10*3/uL [facility] Phone: Basophils/100 WBC (Bld) 0 % 0 - 2 % [facility] Phone: Differential Type NOT REPORTED [facility] Phone: Eosinophils/100 WBC (Bld) 2 % 0 - 4 % [facility] Phone: Hematocrit (Bld) [Volume fraction] 38.4 % 36 - 46 % [facility] Phone: Hemoglobin.gastrointe stinal spec 1 Ql (Stl) 12.8 g/dL 12.0 - 16.0 g/dL [facility] Phone: Immature Granulocytes NOT REPORTED 0 % M [employer] Phone: Interpretation and review of laboratory results Abnormal [facility] Phone: Lymphocytes/100 WBC (Bld) 44 % 24 - 44 % [facility] Phone: MCH (RBC) [Entitic mass] 28.1 pg 26 - 34 pg [facility] Phone: MCHC (RBC) [Mass/Vol] 33.3 g/dL 31 - 3 7 g/dL [employer] Phone: MCV (RBC) [Entitic vol] 84.3 fL 80 - 100 fL [employer] Phone: Monocytes/100 WBC (Bld) 9 % High 1 - 7 % [employer] Phone: Morphology Richard (Bld) [Interp] ANISOCYTOSIS PRESENT [employer] Phone: Morphology Richard (Bld) [Interp] 1+ TEARDROPS [employer] Phone: Morphology Richard (Bld) [Interp] HYPOCHROMIA PRESENT [employer] Phone: Morphology Richard (Bld) [Interp] FEW GIANT PLATELETS [employer] Phone: NRBC Automated NOT REPORTED per 100 WBC [employer] Phone: Platelet distribution width (Bld) [Ratio] 18.0 % High 11.5 - 14.9 % [facility] Phone: Platelet Estimate NOT REPORTED [employer] Phone: Platelet mean volume (Bld) [Entitic vol] 7.9 fL 6.0 - 12.0 fL [employer] Phone: Platelets (Bld) [#/Vol] 273 10*3/uL [employer] Phone: RBC (Bld) [#/Vol] 4.56 10*6/uL 4.0 - 5.2 m/uL [facility] Phone: RBC (Bld) [#/Vol] NOT REPORTED [facility] Phone: Segmented neutrophils/100 WBC (Bld) 43 % 36 - 66 % [employer] Phone: Segs Absolute 1.85 [employer] Phone: WBC (Bld) [#/Vol] 4.3 10*3/uL [facility] Phone: WBC (Bld) [#/Vol] NOT REPORTED [facility] Phone: [facility] Phone: COMP METABOLIC W/ BILI PROFI LEOrdered By: Catrachita Mitchell on 02-05-2021 Albumin [Mass/Vol] 4.3 g/dL 3.5 - 5.2 g/dL [facility] Phone: Albumin/Globulin Ratio NOT REPORTED [facility] Phone: ALP (Bld) [Catalytic activity/Vol] 76 U/L 35 - 104 U/L [facility] Phone: ALT [Catalytic activity/Vol] 12 U/L 5 - 33 U/L [employer] Phone: Anion gap [Moles/Vol] 9 mmol/L 9 - 17 mmol/L [facility] Phone: AST [Catalytic activity/Vol] 17 U/L <32 [employer] Phone: Bilirubin [Mass/Vol] 0.44 mg/dL 0.3 - 1 .2 mg/dL [facility] Phone: Bilirubin, Indirect 0.3 mg/dL 0.00 - 1.00 mg/dL [employer] Phone: Bilirubin.indirect [Mass/Vol] 0.14 mg/dL <0.31 [facility] Phone: Calcium [Mass/Vol] 8.9 mg/dL 8.6 - 10. 4 mg/dL [employer] Phone: Chloride [Moles/Vol] 103 mmol/L 98 - 10 7 mmol/L [employer] Phone: CO2 [Moles/Vol] 24 mmol/L 20 - 31 mmol/L [facility] Phone: Creatinine [Mass/Vol] 0.61 mg/dL 0.50 - 0.90 mg/dL [facility] Phone: Free PSA/Total PSA [Mass fraction] 7.6 g/dL 6.4 - 8.3 g/dL [employer] Phone: GFR >60 >60 mL/min [facility] Phone: GFR Non- >60 >60 mL/min [employer] Phone: GFR/1.73 sq M.predicted MDRD (S/P/Bld) [Vol rate/Area] [facility] Phone: Comment on above: Average GFR for 20-2 9 years old: 116 mL/min/1.73sq m Chronic Kidney Disease: <60 mL/min/1.73sq m Kidney failure: <15 mL/min/1.73sq m eGFR calculated using average adult body mass. Additional eGFR calculator available at: http://www.[employer]/multiple_crcl_2012.htm GFR/1.73 sq M.predicted MDRD (S/P/Bld) [Vol rate/Area] NOT REPORTED [facility] Phone: Glucose [Mass/Vol] 84 mg/dL 70 - 99 mg/dL [facility] Phone: Potassium [Moles/Vol] 4.2 mmol/L 3.7 - 5.3 mmol/L [facility] Phone: Sodium [Moles/Vol] 136 mmol/L 135 - 144 mmol/L [employer] Phone: Urea nitrogen (BldV) [Mass/Vol] 15 mg/dL 6 - 20 mg/dL [employer] Phone: LIPASEOrdered By: Catrachita holly on 02-05-2021 Lipase [Catalytic activity/Vol] 24 U/L 13 - 60 U/L [employer] Phone: No Panel InformationOrdered By: Catrachita Mitchell on 02-05-2021 [facility] Phone: SEDIMENTATION RATEOrdered By : Catrachita Mitchell on 02-05-2021 Sed Rate 8 mm 0 - 20 mm [facility] Phone: [facility] Phone: MRI ENTEROGRAPHYOrdered By: Catrachita Mitchell on 10-23-2020 1. Evidence active inflammatory bowel disease involving the entirety of the colon and terminal ileum. Featureless appearance of the colon is indicative of chronic inflammatory change. The pattern of disease is most suspicious for ulcerative colitis. 2. Single prominent mesorectal lymph node favored to be reactive. [facility] Phone: EXAMINATION: MRI OF THE ENTEROGRAPHY WITHOUT AND WITH CONTRAST, 10/23/2020 9:57 am TECHNIQUE: Multiplanar multisequence MRI of the abdomen and pelvis was performed without and with the administration of intravenous contrast utilizing the MR enterography protocol. Examination was performed after the administration of gadolinium contrast material. COMPARISON: None HISTORY: ORDERING SYSTEM PROVIDED HISTORY: Crohn's disease of both small and large intestine without complication (HCC) TECHNOLOGIST PROVIDED HISTORY: Is the patient ?->No Reason for Exam: Crohn's disease of both small and large intestine without complication Additional signs and symptoms: follow up for ulcerative colitis since 2013, Exam needed to get insurance approval for medications FINDINGS: Lower Chest: Unremarkable. Organs: Liver is normal in contour and enhancement. Gallbladder is unremarkable without biliary ductal dilatation. Pancreas is unremarkable. Adrenals are unremarkable. Spleen is normal in size. No renal calculi or hydronephrosis. Vasculature is unremarkable. GI/Bowel: Contiguous mild wall thickening, bilaminar and trilaminar appearance with some mural hyperenhancement of the entirety of the colon and 4 cm segment of distal ileum including the terminal ileum. There is minimal adjacent apparent doyle-intestinal/pericolonic fat stranding. The colon is featureless in appearance. No evidence of stricture or penetrating disease. Appendix is not seen though there are no secondary signs of appendicitis. Pelvis: Unremarkable. Peritoneum/Retroperitoneum:No free fluid, free air, organized fluid collection. Single prominent mesorectal lymph node measuring 0.6 x 0.6 cm on series 12, image 38.. Bones: Unremarkable. [employer] Phone: Pablo, pn Incoming R adiant Results From [employer]/[facility] - 10/23/2020 10:57 AM EDT EXAMINATION: MRI OF THE ENTEROGRAPHY WITHOUT AND WITH CONTRAST, 10/23/2020 9:57 am TECHNIQUE: Multiplanar multisequence MRI of the abdomen and pelvis was performed without and with the administration of intravenous contrast utilizing the MR enterography protocol. Examination was performed after the administration of gadolinium contrast material. COMPARISON: None HISTORY: ORDERING SYSTEM PROVIDED HISTORY: Crohn's disease of both small and large intestine without complication ([facility]) TECHNOLOGIST PROVIDED HISTORY: Is the patient ?->No Reason for Exam: Crohn's disease of both small and large intestine without complication Additional signs and symptoms: follow up for ulcerative colitis since 2013, Exam needed to get insurance approval for medications FINDINGS: Lower Chest: Unremarkable. Organs: Liver is normal in contour and enhancement. Gallbladder is unremarkable without biliary ductal dilatation. Pancreas is unremarkable. Adrenals are unremarkable. Spleen is normal in size. No renal calculi or hydronephrosis. Vasculature is unremarkable. GI/Bowel: Contiguous mild wall thickening, bilaminar and trilaminar appearance with some mural hyperenhancement of the entirety of the colon and 4 cm segment of distal ileum including the terminal ileum. There is minimal adjacent apparent doyle-intestinal/pericolonic fat stranding. The colon is featureless in appearance. No evidence of stricture or penetrating disease. Appendix is not seen though there are no secondary signs of appendicitis. Pelvis: Unremarkable. Peritoneum/Retroperitoneum:No free fluid, free air, organized fluid collection. Single prominent mesorectal lymph node measuring 0.6 x 0.6 cm on series 12, image 38.. Bones: Unremarkable. IMPRESSION: 1. Evidence active inflammatory bowel disease involving the entirety of the colon and terminal ileum. Featureless appearance of the colon is indicative of chronic inflammatory change. The pattern of disease is most suspicious for ulcerative colitis. 2. Single prominent mesorectal lymph node favored to be reactive. [facility] Work Phone: COVID-19on 05-01-2020 SARS-CoV-2, Rapid Not Detected Not Detected [place], [place] Comment on above: Rapid NAAT: The specimen is NEGATIVE for SARS-CoV-2, the novel coronavirus associated with COVID-19. The ID NOW COVID-19 assay is designed to detect the virus that causes COVID-19 in patients with signs and symptoms of infection who are suspected of COVID-19. An individual without symptoms of COVID-19 and who is not shedding SARS-CoV-2 virus would expect to have a negative (not detected) result in this assay. Negative results should be treated as presumptive and, if inconsistent with clinical signs and symptoms or necessary for patient management, should be tested with an alternative molecular assay. Negative results do not preclude SARS-CoV-2 infection and should not be used as the sole basis for patient management decisions. Fact sheet for Healthcare Providers: https://www.fda.gov/media/790019/download Fact sheet for Patients: https://www.fda.gov/media/252839/download Methodology: Isothermal Nucleic Acid Amplification Source .NASOPHARYNGEAL SWAB [place], [place] Otheron 05-01-2020 SARS-CoV-2 [place], [place] POCT HCG, Prenancy, Uron Beta HCG ( test) Ql (U) Negative NEGATIVE [place], [place] Comment on above: HCG screen is sensitive to 25 mIU/mL. However this test may mixing picker tender lower levels of HCG. If further evaluation is needed please request quantitative HCG. - NOT REPORTED [facility] Coding Summaryon 01-23-2018 Coding Summary CODING DATE: 018 [facility] STATUS: Home PAYOR: Commercial Insurance ADMIT DX: REASON FOR VISIT DX: R05 Cough FINAL DX: PRINCIPAL: J06.9 Acute upper respiratory infection, unspecified SECONDARY: L01.00 Impetigo, unspecified PROCEDURES DOCTOR NAME DATE NOTE: The code number assigned matches the documented diagnosis and / or procedure in the patient's chart. However, the narrative phrase printed from the coding software may appear abbreviated, or result in slightly different terminology. Coded By: Cathy Barker Date Saved: 01/23/2018 04:20 pm Normal [facility] ED Clinical Summaryon 2017 ED Clinical Summary [facility] ? Urgent [id number] [place] [address] clinical SummaryPERSON INFORMATIONName: LAM TOYJames NORWOOD Age: 22 Years Sex: FEMALEDOB: [birth year] MRN: Acct#:Visit Reason: UC - Cough; COUGH, SORE ON NOSE Arrival: 01/04/18 11:54:00 Discharge: 01/04/18 13:50:00LOS: 000 01:56 Check In: 01/04/18 11:54:00 Checkout: 01/04/18 13:50:00Address:[address] [facility] [id number]: JEFF WALDRON INFORMATIONProvider Role Assigned UnassNelson Lockwood PA-C ED PA 01/04/18 12:00:Ludy Alonzo ED Nurse 01/04/18 13:07:12VITALS INFORMATIONVital Sign Triage LatestTemperature TympanicTemperature Temporal ArteryPulse RateO2 SatRespiratory Rate 18 br/min 18 br/minBlood Pressure 114 mmHg/68 mmHg 114 mmHg/68 mmHgMEDICAL INFORMATIONMedications Given:Allergy Information:penicillinsPHYSIC MEGHA DOCUMENTATIONDISCHARGE INFORMATION:Discharge Disposition: HomeDischarge Location: HomePATIENT EDUCATION INFORMATIONInstructions: Upper Respiratory Infection, Adult, Vqik-dn-Ljhg; Impetigo, AdultFollow-Up:With: Address: When:[place] [address] Business (1) Within 3 to 5 daysDIAGNOSIS:Impetigo; Infection, upper respiratoryPatient Understands: Yes - Patient/family/caregiver verbalizes understanding of instructions givenComment: [facility] - [facility] ED Note - Physician Patient: TOY MORGAN : 22 years Sex: FEMALE : [birth year]Associated Diagnoses: Impetigo; Infection, upper respiratoryAuthor: Nelson Rodriguez PA-CBasi InformationAdditional information: Chief Complaint from Nursing Triage Note : Chief Omvgjiymb45/12/18 12:15 EDT Chief Complaint cough about 2 weeks sometimes to point of vomiting .History of Present IllnessThis is a 22 year old here today with concerns of 1 week of cough and congestion, now with a red rash with yellow crusting under her nose. No fevers, chills or malaise. No ear pain, headache, sore throat, neck pain or stiffness. No chest pains or SOB. Cough is occasionally productive, occasionally emesis. No other skin rashes or lesions. There are no other associated symptoms. Nothing makes the symptoms better or worse. Symptoms are described as gradual onset, moderate in nature and persisting.Health StatusAllergies:Allergic Reactions (Selected)Severity Not DocumentedPenicillins- No reactions were documented..Past Medical/ Family/ Social HistoryMedical history:No active or resolved past medical history items have been selected or recorded..Surgical history:No active procedure history items have been selected or recorded..Family history:No family history items have been selected or recorded..Social history:Social & Psychosocial YmjvsoSaptrqt05/12/2018 Smoking tobacco use: Never (less than 100 in l.Problem list:No qualifying data available.Physical Examination Vital SignsVital Signs01/04/18 12:50 EDT Temperature Temporal 36.7 DegC Apical Heart Rate 78 bpm Respiratory Rate 18 br/min Systolic Blood Pressure 114 mmHg Diastolic Blood Pressure 68 mmHg.Gfaksordyowy38/12/18 13:11 EDT Weight Dosing 63.500 kg01/04/18 13:11 EDT Height/Length Dosing 149.860 cm01/04/18 12:15 EDT Height 149.860 cm Weight 63.500 kg.GENERAL: Awake, alert and oriented to person, place and situation. Well nourished, well developed, non toxic, NAD.EYES: Pupils equal, round and react to light. EOMI.ENMT: Ears: TM's and external canals with normal inspection bilaterally. Nose: clear rhinorrhea. Mouth: oral mucosa is pink and still moist. Throat: normal inspection.NECK: Normal range of motion, no meningismus, trachea is midline. No anterior or posterior lymphadenopathy.CARDIOVASCULA R: Regular rate and rhythm. +S1 +S2. No murmurs or rubs.RESPIRATORY: Clear to auscultation bilaterally without rales, rhonchi or wheeze. Harsh cough.SKIN: There is an erythematous rash with yellow crusting under the right nostril consistent with impetigo. Otherwise normal inspection, no visualized rash.Medical Decision MakingKeflex and Bactroban. Tessalon perles for cough. Push fluids, rest. Return with new, or worsening symptoms, or symptoms failing to improve as expected and the patient voiced their understanding. Questions answered. Follow-up with their family doctor as directed, return here sooner as needed.Impression and PlanDiagnosisImpetigo (HAS46-NO L01.00, Discharge, Medical)Infection, upper respiratory (AHT50-XC J06.9, Discharge, Medical)PlanCondition: Stable.Disposition: Discharged: Time 01/04/18 13:36:00, to home.Prescriptions: Launch prescriptionsPharmacy:Bactrob an 2% topical ointment (Prescribe): 1 ivan, TOP, TID, for 7 day(s), 15 gm, 0 Refill(s)benzonatate 200 mg oral capsule (Prescribe): 200 mg, 1 cap(s), PO, TID, for 7 day(s), PRN: as needed for cough, 21 cap(s), 0 Refill(s)Keflex 500 mg oral capsule (Prescribe): 500 mg, 1 cap(s), PO, q8hr, for 10 day(s), 30 cap(s), 0 Refill(s).Patient was given the following educational materials: Impetigo, Adult, Upper Respiratory Infection, Adult, Pxfg-da-Bwsb, Upper Respiratory Infection, Adult, Aenp-cp-Vcnd, Impetigo, Adult.Follow up with: YOHANA WALDRON Within 3 to 5 days.Counseled: Patient, Regarding diagnosis, Regarding treatment plan, Regarding prescription, Patient indicated understanding of instructions.[Electronically Signed on: 01/04/2018 13:55 EDT] Nelson Rodriguez PA-C[Verified on: 01/04/2018 13:55 EDT] Nelson Rodriguez PA-C Normal [facility] ED Patient Summaryon 018 ED Patient Summary [facility] ? Urgent [id number] [place] [id number] pATIENT DISCHARGE INSTRUCTIONSPatient InformationName: TOY MORGAN Age: 22 YearsDate of : [birth year]MRN: [id number] For Visit: UC - Cough; COUGH, SORE ON NOSEArrival Time: 01/04/18 11:54:00Phone: Primary Care Physician: YOHANA WALDRONAttending Physician: Nelson RodriguezCComment:Patient EducationWith: Address: When:YOHANA WALDRON [address] [place] [id number] Business (1) Within 3 to 5 daysUpper Respiratory Infection, AdultMost upper respiratory infections (URIs) are caused by a virus. A URI affects the nose, throat, and upper air passages. The most common type of URI is often called the common cold. Follow these instructions at home:? Take medicines only as told by your doctor.? Gargle warm saltwater or take cough drops to comfort your throat as told by your doctor.? Use a warm mist humidifier or inhale steam from a shower to increase air moisture. This may make it easier to breathe.? Drink enough fluid to keep your pee (urine) clear or pale yellow.? Eat soups and other clear broths.? Have a healthy diet.? Rest as needed.? Go back to work when your fever is gone or your doctor says it is okay.? You may need to stay home longer to avoid giving your URI to others.? You can also wear a face mask and wash your hands often to prevent spread of the virus.? Use your inhaler more if you have asthma.? Do not use any tobacco products, including cigarettes, chewing tobacco, or electronic cigarettes. If you need help quitting, ask your doctor.Contact a doctor if:? You are getting worse, not better.? Your symptoms are not helped by medicine.? You have chills.? You are getting more short of breath.? You have brown or red mucus.? You have yellow or brown discharge from your nose.? You have pain in your face, especially when you bend forward.? You have a fever.? You have puffy (swollen) neck glands.? You have pain while swallowing.? You have white areas in the back of your throat.Get help right away if:? You have very bad or constant:? Headache.? Ear pain.? Pain in your forehead, behind your eyes, and over your cheekbones (sinus pain).? Chest pain.? You have long-lasting (chronic) lung disease and any of the following:? Wheezing.? Long-lasting cough.? Coughing up blood.? A change in your usual mucus.? You have a stiff neck.? You have changes in your:? Vision.? Hearing.? Thinking.? Mood.This information is not intended to replace advice given to you by your health care provider. Make sure you discuss any questions you have with your health care provider.Document Released: 11/28/2008 Document Revised: 02/12/2017 Document Reviewed: 09/17/2014[employer] Interactive Patient Education ? 2018 [employer].Impetigo, AdultImpetigo is an infection of the skin. It commonly occurs in young children, but it can also occur in adults. The infection causes itchy blisters and sores that produce brownish-yellow fluid. As the fluid dries, it forms a thick, honey-colored crust. These skin changes usually occur on the face but can also affect other areas of the body. Impetigo usually goes away in 7?10 days with treatment.What are the causes?Impetigo is caused by two types of bacteria. It may be caused by staphylococci or streptococci bacteria. These bacteria cause impetigo when they get under the surface of the skin. This often happens after some damage to the skin, such as damage from:? Cuts, scrapes, or scratches.? Insect bites, especially when you scratch the area of a bite.? Chickenpox or other illnesses that cause open skin sores.? Nail biting or chewing.Impetigo is contagious and can spread easily from one person to another. This may occur through close skin contact or by sharing towels, clothing, or other items with a person who has the infection.What increases the risk?Some things that can increase the risk of getting this infection include:? Playing sports that include zyrq-fk-pivj contact with others.? Having a skin condition with open sores.? Having many skin cuts or scrapes.? Living in an area that has high humidity levels.? Having poor hygiene.? Having high levels of staphylococci in your nose.What are the signs or symptoms?Impetigo usually starts out as small blisters, often on the face. The blisters then break open and turn into tiny sores (lesions) with a yellow crust. In some cases, the blisters cause itching or burning. With scratching, irritation, or lack of treatment, these small lesions may get larger. Scratching can also cause impetigo to spread to other parts of the body. The bacteria can get under the fingernails and spread when you touch another area of your skin.Other possible symptoms include:? Larger blisters.? Pus.? Swollen lymph glands.How is this diagnosed?This condition is usually diagnosed during a physical exam. A skin sample or sample of fluid from a blister may be taken for lab tests that involve growing bacteria (culture test). This can help confirm the diagnosis or help determine the best treatment.How is this treated?Mild impetigo can be treated with prescription antibiotic cream. Oral antibiotic medicine may be used in more severe cases. Medicines for itching may also be used.Follow these instructions at home:? Take medicines only as directed by your health care provider.? To help prevent impetigo from spreading to other body areas:? Keep your fingernails short and clean.? Do not scratch the blisters or sores.? Cover infected areas, if necessary, to keep from scratching.? Gently wash the infected areas with antibiotic soap and water.? Soak crusted areas in warm, soapy water using antibiotic soap.? Gently rub the areas to remove crusts. Do not scrub.? Wash your hands often to avoid spreading this infection.? Stay home until you have used an antibiotic cream for 48 hours (2 days) or an oral antibiotic medicine for 24 hours (1 day). You should only return to work and activities with other people if your skin shows significant improvement.How is this prevented?To keep the infection from spreading:? Stay home until you have used an antibiotic cream for 48 hours or an oral antibiotic for 24 hours.? Wash your hands often.? Do not engage in dxwh-ol-ipoo contact with other people while you have still have blisters.? Do not share towels, washcloths, or bedding with others while you have the infection.Contact a health care provider if:? You develop more blisters or sores despite treatment.? Other family members get sores.? Your skin sores are not improving after 48 hours of treatment.? You have a fever.Get help right away if:? You see spreading redness or swelling of the skin around your sores.? You see red streaks coming from your sores.? You develop a sore throat.This information is not intended to replace advice given to you by your health care provider. Make sure you discuss any questions you have with your health care provider.Document Released: 07/03/2015 Document Revised: 11/17/2016 Document Reviewed: 05/26/2015Edgardo Interactive Patient Education ? 2017 [employer]Medication Information:The exam and treatment you received today in the [facility] Emergency Department were for an urgent problem and are not intended as complete care. It is important for you to follow up with a doctor, nurse practitioner, or physician?s contract administrative assistant for ongoing care. If your symptoms become worse or you do not improve as expected and you are unable to reach your usual health care provider, you should return to the Emergency Department, we are available 24 hours a day.For those patients who have received Radiology results, the interpretation of your X-ray as given to you by our Emergency Department physician is only a preliminary report. The Radiologist will review your films and if there is a change in the diagnosis you will be notified by phone. Please make sure you have provided a working phone number so we can reach you if necessary.In the event that you had a lab culture while you were a patient in the Emergency Department, you will be notified by phone if there is a need to change your antibiotic. Please make sure you have provided a working phone number so we can reach you if necessary.[facility] Emergency Department has provided you with a complete list of medications post discharge. Please inform your associate spa director/provider of your visit and for further instruction on these medications. Any specific questions regarding your chronic medications and dosages should be discussed with your primary care physician(s) and/or pharmacist. New MedicationsThe [facility] At [facility], [address] [place] [address], [phone] (benzonatate 200 mg oral capsule) 1 cap Oral 3 times a day as needed as needed for cough for 7 Days. Refills: 0.cephalexin (Keflex 500 mg oral capsule) 1 cap Oral Every 8 hours for 10 Days. Refills: 0.mupirocin topical (Bactroban 2% topical ointment) 1 ivan Topical 3 times a day for 7 Days. Refills: 0.Visit InformationVisit Diagnosis:Diagnoses This Visit Impetigo (L01.00) Infection, upper respiratory (J06.9) UC - Cough ([id number])If you received any narcotics, sedation, or any other medication that causes drowsiness for the next 24 hours, unless otherwise directed:? Do not drive a car.? Do not operate machinery such as power tools, lawn mowers, drills, sewing machines, or stoves? Avoid alcoholic beverages and drugs for allergies, nerves, or sleep? Do not make important personal or business decisions or sign any legal documentsReason for Visit:cough about 2 weeks sometimes to point of vomitingAllergies:Substance Reaction Symptoms Type Commentspenicillins DrugVital Signs: Vitals and Measurements this Visit (last charted value for your 01/04/2018 visit) Vital Signs This Visit Temperature Temporal: 36.7 DegC Apical Heart Rate: 78 bpm Respiratory Rate: 18 br/min Systolic Blood Pressure: 114 mmHg Diastolic Blood Pressure: 68 mmHg Measurements This Visit Height: 149.860 cm Height/Length Dosin.860 cm Weight: 63.500 kg Weight Dosin.500 kgProblems List:Problem Onset CommentsNo Problems foundMajor Tests and Procedures:The following procedures and tests were performed during your ED visit.LaboratoryRadiologyCard iology Viruses or BacteriaWhat?s got you sick?Antibiotics only treat bacterial infections. Viral illnesses cannot be treated with antibiotics. When an antibiotic is not prescribed, ask your healthcare professional for tips on how to relieve symptoms and feel better. Usual CauseIllnessVirusesBacteria Antibiotic NeededCold/Runny Nose NOBronchitis/Chest Cold (in otherwise healthy children and adults) NOWhooping Cough YesFlu NOStrep Throat YesSore Throat (except strep) NOFluid in the middle ear (otitis media with effusion) NOUrinary Tract Infection YesAntibiotics Aren?t Always the Answerwww.cdc.gov/getsmart GET SMART Know When Antibiotics [place]oe.[place]. Department of Health and Human ServicesCenters for Disease Control and Prevention February 2014 Normal [facility] Urgent Care [address] 018 Urgent Care Record [facility] ? Urgent [id number] [place] [id number] pATIENT DISCHARGE INSTRUCTIONSPatient InformationName: TOY MORGAN Age: 22 YearsDate of : [birth year]MRN: [id number] For Visit: UC - Cough; COUGH, SORE ON NOSEArrival Time: 01/04/18 11:54:00Phone: Primary Care Physician: Mahad WALDRON Physician: Nelson Rodriguez-CComment:Visit Diagnosis:Diagnoses This Visit Impetigo (L01.00) Infection, upper respiratory (J06.9) UC - Cough ([id number])If you received any narcotics, sedation, or any other medication that causes drowsiness for the next 24 hours, unless otherwise directed:? Do not drive a car.? Do not operate machinery such as power tools, lawn mowers, drills, sewing machines, or stoves? Avoid alcoholic beverages and drugs for allergies, nerves, or sleep? Do not make important personal or business decisions or sign any legal documentsWith: Address: When:YOHANA WALDRON [address] [place], [place] [id number] Business (1) Within 3 to 5 daysMedication Information:The exam and treatment you received today in the [facility] Urgent Care were for an urgent problem and are not intended as complete care. It is important for you to follow up with a doctor, nurse practitioner, or physician?s contract administrative assistant for ongoing care. If your symptoms become worse or you do not improve as expected and you are unable to reach your usual health care provider, you should return to the Emergency Department, we are available 24 hours a day.For those patients who have received Radiology results, the interpretation of your X-ray as given to you by our Urgent Care physician is only a preliminary report. The Radiologist will review your films and if there is a change in the diagnosis you will be notified by phone. Please make sure you have provided a working phone number so we can reach you if necessary.In the event that you had a lab culture while you were a patient in the Urgent Care, you will be notified by phone if there is a need to change your antibiotic. Please make sure you have provided a working phone number so we can reach you if necessary.[facility] has provided you with a complete list of medications post discharge. Please inform your associate spa director/provider of your visit and for further instruction on these medications. Any specific questions regarding your chronic medications and dosages should be discussed with your primary care physician(s) and/or pharmacist. New MedicationsThe [facility] At [facility], [address] [place] [phone], [phone] (benzonatate 200 mg oral capsule) 1 cap Oral 3 times a day as needed as needed for cough for 7 Days. Refills: 0.cephalexin (Keflex 500 mg oral capsule) 1 cap Oral Every 8 hours for 10 Days. Refills: 0.mupirocin topical (Bactroban 2% topical ointment) 1 ivan Topical 3 times a day for 7 Days. Refills: 0.Visit InformationAllergies:Substanc e Reaction Symptoms Type Commentspenicillins DrugVital Signs: Vitals and Measurements this Visit (last charted value for your 01/04/2018 visit) Vital Signs This Visit Temperature Temporal: 36.7 DegC Apical Heart Rate: 78 bpm Respiratory Rate: 18 br/min Systolic Blood Pressure: 114 mmHg Diastolic Blood Pressure: 68 mmHg Measurements This Visit Height: 149.860 cm Height/Length Dosin.860 cm Weight: 63.500 kg Weight Dosin.500 kgProblems List:Problem Onset CommentsNo Problems found Patient EducationUpper Respiratory Infection, AdultMost upper respiratory infections (URIs) are caused by a virus. A URI affects the nose, throat, and upper air passages. The most common type of URI is often called the common cold. Follow these instructions at home:? Take medicines only as told by your doctor.? Gargle warm saltwater or take cough drops to comfort your throat as told by your doctor.? Use a warm mist humidifier or inhale steam from a shower to increase air moisture. This may make it easier to breathe.? Drink enough fluid to keep your pee (urine) clear or pale yellow.? Eat soups and other clear broths.? Have a healthy diet.? Rest as needed.? Go back to work when your fever is gone or your doctor says it is okay.? You may need to stay home longer to avoid giving your URI to others.? You can also wear a face mask and wash your hands often to prevent spread of the virus.? Use your inhaler more if you have asthma.? Do not use any tobacco products, including cigarettes, chewing tobacco, or electronic cigarettes. If you need help quitting, ask your doctor.Contact a doctor if:? You are getting worse, not better.? Your symptoms are not helped by medicine.? You have chills.? You are getting more short of breath.? You have brown or red mucus.? You have yellow or brown discharge from your nose.? You have pain in your face, especially when you bend forward.? You have a fever.? You have puffy (swollen) neck glands.? You have pain while swallowing.? You have white areas in the back of your throat.Get help right away if:? You have very bad or constant:? Headache.? Ear pain.? Pain in your forehead, behind your eyes, and over your cheekbones (sinus pain).? Chest pain.? You have long-lasting (chronic) lung disease and any of the following:? Wheezing.? Long-lasting cough.? Coughing up blood.? A change in your usual mucus.? You have a stiff neck.? You have changes in your:? Vision.? Hearing.? Thinking.? Mood.This information is not intended to replace advice given to you by your health care provider. Make sure you discuss any questions you have with your health care provider.Document Released: 11/28/2008 Document Revised: 02/12/2017 Document Reviewed: 09/17/2014[employer] Patient Education ? 2018 [employer].Impetigo, AdultImpetigo is an infection of the skin. It commonly occurs in young children, but it can also occur in adults. The infection causes itchy blisters and sores that produce brownish-yellow fluid. As the fluid dries, it forms a thick, honey-colored crust. These skin changes usually occur on the face but can also affect other areas of the body. Impetigo usually goes away in 7?10 days with treatment.What are the causes?Impetigo is caused by two types of bacteria. It may be caused by staphylococci or streptococci bacteria. These bacteria cause impetigo when they get under the surface of the skin. This often happens after some damage to the skin, such as damage from:? Cuts, scrapes, or scratches.? Insect bites, especially when you scratch the area of a bite.? Chickenpox or other illnesses that cause open skin sores.? Nail biting or chewing.Impetigo is contagious and can spread easily from one person to another. This may occur through close skin contact or by sharing towels, clothing, or other items with a person who has the infection.What increases the risk?Some things that can increase the risk of getting this infection include:? Playing sports that include [id number] contact with others.? Having a skin condition with open sores.? Having many skin cuts or scrapes.? Living in an area that has high humidity levels.? Having poor hygiene.? Having high levels of staphylococci in your nose.What are the signs or symptoms?Impetigo usually starts out as small blisters, often on the face. The blisters then break open and turn into tiny sores (lesions) with a yellow crust. In some cases, the blisters cause itching or burning. With scratching, irritation, or lack of treatment, these small lesions may get larger. Scratching can also cause impetigo to spread to other parts of the body. The bacteria can get under the fingernails and spread when you touch another area of your skin.Other possible symptoms include:? Larger blisters.? Pus.? Swollen lymph glands.How is this diagnosed?This condition is usually diagnosed during a physical exam. A skin sample or sample of fluid from a blister may be taken for lab tests that involve growing bacteria (culture test). This can help confirm the diagnosis or help determine the best treatment.How is this treated?Mild impetigo can be treated with prescription antibiotic cream. Oral antibiotic medicine may be used in more severe cases. Medicines for itching may also be used.Follow these instructions at home:? Take medicines only as directed by your health care provider.? To help prevent impetigo from spreading to other body areas:? Keep your fingernails short and clean.? Do not scratch the blisters or sores.? Cover infected areas, if necessary, to keep from scratching.? Gently wash the infected areas with antibiotic soap and water.? Soak crusted areas in warm, soapy water using antibiotic soap.? Gently rub the areas to remove crusts. Do not scrub.? Wash your hands often to avoid spreading this infection.? Stay home until you have used an antibiotic cream for 48 hours (2 days) or an oral antibiotic medicine for 24 hours (1 day). You should only return to work and activities with other people if your skin shows significant improvement.How is this prevented?To keep the infection from spreading:? Stay home until you have used an antibiotic cream for 48 hours or an oral antibiotic for 24 hours.? Wash your hands often.? Do not engage in [id number] contact with other people while you have still have blisters.? Do not share towels, washcloths, or bedding with others while you have the infection.Contact a health care provider if:? You develop more blisters or sores despite treatment.? Other family members get sores.? Your skin sores are not improving after 48 hours of treatment.? You have a fever.Get help right away if:? You see spreading redness or swelling of the skin around your sores.? You see red streaks coming from your sores.? You develop a sore throat.This information is not intended to replace advice given to you by your health care provider. Make sure you discuss any questions you have with your health care provider.Document Released: 07/03/2015 Document Revised: 11/17/2016 Document Reviewed: 05/26/2015[employer] Patient Education ? 2017 [employer]. Viruses or BacteriaWhat?s got you sick?Antibiotics only treat bacterial infections. Viral illnesses cannot be treated with antibiotics. When an antibiotic is not prescribed, ask your healthcare professional for tips on how to relieve symptoms and feel better. Usual CauseIllnessVirusesBacteria Antibiotic NeededCold/Runny Nose NOBronchitis/Chest Cold (in otherwise healthy children and adults) NOWhooping Cough YesFlu NOStrep Throat YesSore Throat (except strep) NOFluid in the middle ear (otitis media with effusion) NOUrinary Tract Infection YesAntibiotics Aren?t Always the Answerwww.cdc.gov/getsmart GET SMART Know When Antibiotics [place] Department of Health and Human ServicesCenters for Disease Control and Prevention February 2014 [facility] Vital Signs Date Time Vital Sign Value Performing Clinician Facility 09-28-2023 11:30-0400 Body height 149.9 cm [facility] 09-28-2023 11:30-0400 Body mass index (BMI) [Ratio] 27.47 kg/m2 [facility] 09-28-2023 11:30-0400 Body weight 61.69 kg [facility] 09-28-2023 11:30-0400 Diastolic blood pressure 68 mm[Hg] [facility] 09-28-2023 11:30-0400 Systolic blood pressure 116 mm[Hg] [facility] 08-25-2023 10:00-0500 Body temperature 98.1 [degF] [facility] 08-25-2023 10:00-0500 Diastolic blood pressure 77 mm[Hg] [facility] 04 [facility] 08-25-2023 10:00-0500 Heart rate 88 /min St[facility] 04 [facility] 08-25-2023 10:00-0500 Respiratory rate 16 /min Stcz 04 [facility] 08-25-2023 10:00-0500 SaO2% (BldA) [Mass fraction] 96 % Stcz 04 [facility] 08-25-2023 10:00-0500 Systolic blood pressure 111 mm[Hg] Stcz 04 [facility] 08-25-2023 08:00-0500 Body mass index (BMI) [Ratio] 27.61 kg/m2 St[facility] 04 [facility] 08-25-2023 08:00-0500 Body weight 62 kg Stcz 04 [facility] 08-11-2023 14:51-0500 Body height 149.9 cm Angela Yanez MD Work Phone: [facility] 08-11-2023 14:51-0500 Body mass index (BMI) [Ratio] 27.27 kg/m2 Angela Yanez MD Work Phone: [facility] 08-11-2023 14:51-0500 Body weight 61.24 kg Angela Yanez MD Work Phone: [facility] 08-11-2023 14:51-0500 Diastolic blood pressure 81 mm[Hg] Angela Yanez MD Work Phone: [facility] 08-11-2023 14:51-0500 Heart rate 76 /min Angela Yanez MD Work Phone: [facility] 08-11-2023 14:51-0500 SaO2% (BldA) [Mass fraction] 98 % Angela Yanez MD Work Phone: [facility] 08-11-2023 14:51-0500 Systolic blood pressure 123 mm[Hg] Angela Yanez MD Work Phone: [facility] 11-04-2022 11:00-0400 Body temperature 97.3 [degF] Stc 04 [facility] 11-04-2022 11:00-0400 Diastolic blood pressure 70 mm[Hg] Stc 04 [facility] 11-04-2022 11:00-0400 Heart rate 92 /min Stc 04 [facility] 11-04-2022 11:00-0400 Respiratory rate 18 /min Stc 04 [facility] 11-04-2022 11:00-0400 SaO2% (BldA) [Mass fraction] 98 % Stc 04 [facility] 11-04-2022 11:00-0400 Systolic blood pressure 103 mm[Hg] Stc 04 [facility] 11-04-2022 08:00-0400 Body mass index (BMI) [Ratio] 27.47 kg/m2 Stc 04 [facility] 11-04-2022 08:00-0400 Body weight 61.69 kg Stc 04 [facility] 09-09-2022 10:38-0400 Body temperature 97.39 [degF] Stc 04 [facility] 09-09-2022 10:38-0400 Diastolic blood pressure 77 mm[Hg] Stc 04 [facility] 09-09-2022 10:38-0400 Heart rate 92 /min Stc 04 [facility] 09-09-2022 10:38-0400 Respiratory rate 17 /min Stc 04 [facility] 09-09-2022 10:38-0400 SaO2% (BldA) [Mass fraction] 99 % Stc 04 [facility] 09-09-2022 10:38-0400 Systolic blood pressure 115 mm[Hg] Stc 04 [facility] 09-09-2022 08:00-0400 Body mass index (BMI) [Ratio] 26.86 kg/m2 Stc 04 [facility] 09-09-2022 08:00-0400 Body weight 60.33 kg [facility] [employer] 07-15-2022 10:54-0500 Body temperature 97 [degF] Stc 04 [facility] [employer] 07-15-2022 10:54-0500 Diastolic blood pressure 72 mm[Hg] St[facility] 04 [facility] [employer] 07-15-2022 10:54-0500 Heart rate 88 /min St[facility] 04 [facility] [employer] 07-15-2022 10:54-0500 Respiratory rate 16 /min St[facility] 04 [facility] [employer] 07-15-2022 10:54-0500 SaO2% (BldA) [Mass fraction] 97 % Stc 04 [facility] [employer] 07-15-2022 10:54-0500 Systolic blood pressure 107 mm[Hg] Stc 04 [facility] [employer] 07-15-2022 08:00-0500 Body mass index (BMI) [Ratio] 26.86 kg/m2 Stc 04 [facility] [employer] 07-15-2022 08:00-0500 Body weight 60.33 kg Stc 04 [facility] [employer] 05-06-2022 10:45-0500 Body temperature 98.2 [degF] Stc 04 [facility] 05-06-2022 10:45-0500 Diastolic blood pressure 70 mm[Hg] Stc 04 [facility] [employer] 05-06-2022 10:45-0500 Heart rate 91 /min Stc 04 [facility] [employer] 05-06-2022 10:45-0500 Respiratory rate 16 /min St[facility] 04 [facility] 05-06-2022 10:45-0500 SaO2% (BldA) [Mass fraction] 99 % Stc 04 [facility] [employer] 05-06-2022 10:45-0500 Systolic blood pressure 112 mm[Hg] Stc 04 [facility] [employer] 05-06-2022 07:45-0500 Body mass index (BMI) [Ratio] 26.86 kg/m2 Stc 04 [facility] [employer] 05-06-2022 07:45-0500 Body weight 60.33 kg Stc 04 [facility] [employer] 03-11-2022 11:15-0400 Body temperature 97.81 [degF] Stc 04 [facility] [employer] 03-11-2022 11:15-0400 Diastolic blood pressure 84 mm[Hg] Stc 04 [facility] 03-11-2022 11:15-0400 Heart rate 91 /min [facility] 04 [facility] 03-11-2022 11:15-0400 Respiratory rate 16 /min [facility] 04 [facility] 03-11-2022 11:15-0400 SaO2% (BldA) [Mass fraction] 96 % St[facility] 04 [facility] 03-11-2022 11:15-0400 Systolic blood pressure 125 mm[Hg] [facility] 04 [facility] 03-11-2022 08:45-0400 Body mass index (BMI) [Ratio] 28.68 kg/m2 St[facility] 04 [facility] 03-11-2022 08:45-0400 Body weight 64.41 kg St[facility] 04 [facility] 03-11-2022 08:25-0400 Diastolic blood pressure 71 mm[Hg] Catrachita Mitchell MD Work Phone: [facility] 03-11-2022 08:25-0400 Heart rate 91 /min Catrachita Mitchell MD Work Phone: [facility] 03-11-2022 08:25-0400 Respiratory rate 17 /min Catrachita Mitchell MD Work Phone: [facility] 03-11-2022 08:25-0400 SaO2% (BldA) [Mass fraction] 98 % Catrachita Mitchell MD Work Phone: [facility] 03-11-2022 08:25-0400 Systolic blood pressure 123 mm[Hg] Catrachita Mitchell MD Work Phone: [facility] [employer] 03-11-2022 08:20-0400 Body temperature 98.2 [degF] Catrachita Mitchell MD Work Phone: [facility] [employer] 03-11-2022 05:52-0400 Body height 149.9 cm Catrachita Mitchell MD Work Phone: [facility] [employer] 03-11-2022 05:52-0400 Body mass index (BMI) [Ratio] 28.68 kg/m2 Catrachita Mitchell MD Work Phone: [facility] [employer] 03-11-2022 05:52-0400 Body weight 64.41 kg Catrachita Mitchell MD Work Phone: [facility] [employer] 01-14-2022 11:25-0400 Body temperature 98.01 [degF] Stc 04 [facility] [employer] 01-14-2022 11:25-0400 Diastolic blood pressure 67 mm[Hg] Stc 04 [facility] [employer] 01-14-2022 11:25-0400 Heart rate 82 /min Stc 04 [facility] [employer] 01-14-2022 11:25-0400 Respiratory rate 17 /min Stc 04 [facility] [employer] 01-14-2022 11:25-0400 SaO2% (BldA) [Mass fraction] 98 % Stc 04 [facility] [employer] 01-14-2022 11:25-0400 Systolic blood pressure 103 mm[Hg] Stc 04 [facility] [employer] 01-14-2022 08:00-0400 Body mass index (BMI) [Ratio] 27.27 kg/m2 Stc 04 [facility] [employer] 01-14-2022 08:00-0400 Body weight 61.24 kg Stc 04 RECESS. 03-05-2021 12:34-0400 Diastolic blood pressure 68 mm[Hg] Stc 03 RECESS. Work Phone: 03-05-2021 12:34-0400 Heart rate 95 /min Stc 03 RECESS. Work Phone: 03-05-2021 12:34-0400 Respiratory rate 18 /min Stc 03 RECESS. Work Phone: 03-05-2021 12:34-0400 SaO2% (BldA) [Mass fraction] 99 % Stc 03 RECESS. Work Phone: 03-05-2021 12:34-0400 Systolic blood pressure 117 mm[Hg] [facility] [employer] Phone: 03-05-2021 11:35-0400 Body temperature 97.3 [degF] [facility] [employer] Phone: 03-05-2021 08:45-0400 Body mass index (BMI) [Ratio] 25.25 kg/m2 [facility] [employer] Phone: 03-05-2021 08:45-0400 Body weight 56.7 kg [facility] [employer] Phone: 02-05-2021 13:00-0400 Body temperature 97.59 [degF] [facility] [employer] Phone: 02-05-2021 13:00-0400 Diastolic blood pressure 74 mm[Hg] [facility] [employer] Phone: 02-05-2021 13:00-0400 Heart rate 103 /min [facility] [employer] Phone: 02-05-2021 13:00-0400 Respiratory rate 18 /min [facility] [employer] Phone: 02-05-2021 13:00-0400 SaO2% (BldA) [Mass fraction] 97 % [facility] [employer] Phone: 02-05-2021 13:00-0400 Systolic blood pressure 117 mm[Hg] [facility] [employer] Phone: 02-05-2021 10:00-0400 Body mass index (BMI) [Ratio] 24.24 kg/m2 [facility] [employer] Phone: 02-05-2021 10:00-0400 Body weight 54.43 kg [facility] [employer] Phone: 05-01-2020 11:00-0500 Body Temperature 97.59 [degF] [facility] [place] 05-01-2020 11:00-0500 BP Diastolic 74 mm[Hg] [facility] [place] 05-01-2020 11:00-0500 BP Systolic 120 mm[Hg] [facility] [place] 05-01-2020 11:00-0500 Pulse (Heart Rate) 93 /min [facility] [place] 05-01-2020 11:00-0500 Pulse Oximetry 100 % [facility] [place] 05-01-2020 11:00-0500 Respiratory Rate 18 /min [facility] [place] 05-01-2020 08:37-0500 BMI (Body Mass Index) 25.25 kg/m2 [facility] [place] 05-01-2020 08:37-0500 Body weight 56.7 kg [facility] [place] 05-01-2020 08:37-0500 Height 149.9 cm [facility] [place] Encounters Encounter Date Encounter Type Care Provider Facility Start: 10-20-2023 End: 10-21-2023 ambulatory [facility] Start: 10-10-2023 End: 10-10-2023 Telephone encounter Gracie Davis [facility] Comment on above: BV (bacterial vagino sis) (Primary Dx) Start: 10-06-2023 End: 10-06-2023 ambulatory [facility] Start: 09-30-2023 Orders Only Vonnie Maloney [employer]IR[employer] 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 [employer] Work Phone: [facility] Comment on above: BV (bacterial vagino sis) (Primary Dx) Start: 09-28-2023 End: 09-29-2023 ambulatory VONNIE MALONEY [facility] Start: 09-28-2023 End: 09-28-2023 Office outpatient visit 15 minutes [facility] Work[facility] Comment on above: Vulvar lesion (Prima ry Dx); Screen for STD (sexually transmitted disease) Start: 09-28-2023 End: 09-29-2023 ambulatory [facility] Ranjan [facility] Start: 09-15-2023 End: 09-20-2023 ambulatory [facility] Start: 09-01-2023 End: 09-06-2023 ambulatory [facility] Start: 08-25-2023 End: 08-26-2023 ambulatory [facility] Start: 08-25-2023 End: 08-25-2023 Subsequent hospital visit by physician Heidy Garcia Infusion Chair 04 [facility] Comment on above: Ulcerative colitis w ith complication, unspecified location (HCC) (Primary Dx); CC (Crohn's colitis), without complications (HCC) Start: 08-11-2023 End: 08-11-2023 ambulatory ANGELA YANEZ [facility] Start: 08-11-2023 End: 08-11-2023 Office outpatient new 45 minutes Angela Yanez MD Work Phone: [facility] Comment on above: Seasonal allergic rh initis due to pollen (Primary Dx); Allergic rhinitis due to dust mite; Adverse reaction to food, initial encounter; Adverse reaction to drug, initial encounter Start: 06-30-2023 End: 07-01-2023 ambulatory [facility] Start: 05-05-2023 End: 05-06-2023 ambulatory [facility] Start: 03-10-2023 End: 03-11-2023 ambulatory [facility] Start: 03-03-2023 ambulatory [facility] Start: 01-06-2023 End: 01-07-2023 ambulatory [facility] Start: 11-04-2022 End: 11-05-2022 ambulatory [facility] Start: 11-04-2022 End: 11-04-2022 Subsequent hospital visit by physician [facility] Short Stay Infusion Chair 04 [facility] Comment on above: CC (Crohn's colitis) , without complications (HCC) (Primary Dx); Ulcerative colitis with complication, unspecified location (HCC) Start: 09-09-2022 End: 09-09-2022 Subsequent hospital visit by physician [facility] Short Stay Infusion Chair 04 [facility] Comment on above: CC (Crohn's colitis) , without complications (HCC) (Primary Dx); Ulcerative colitis with complication, unspecified location (HCC) Start: 07-15-2022 End: 07-15-2022 Subsequent hospital visit by physician [facility] Stay Infusion Chair 04 [facility] INF[facility] Comment on above: CC (Crohn's colitis) , without complications (HCC) (Primary Dx); Ulcerative colitis with complication, unspecified location (HCC) Start: 05-06-2022 End: 05-06-2022 Subsequent hospital visit by physician [facility] Short Stay Infusion Chair 04 [facility] Comment on above: CC (Crohn's colitis) , without complications (HCC) (Primary Dx); Ulcerative colitis with complication, unspecified location (HCC) Start: 03-11-2022 End: 03-11-2022 Subsequent hospital visit by physician Catrachita Mitchell MD Work Phone: [facility] Comment on above: Crohn's disease of s mall and large intestines with complication (HCC) CC (Crohn's colitis) , without complications (HCC) (Primary Dx); Ulcerative colitis with complication, unspecified location (HCC) Start: 01-14-2022 End: 01-14-2022 Subsequent hospital visit by physician [facility] Short Stay Infusion Chair 04 [facility] Comment on above: CC (Crohn's colitis) , without complications (HCC) (Primary Dx); Ulcerative colitis with complication, unspecified location (HCC); Crohn's disease of both small and large intestine without complication (HCC) Start: 03-05-2021 End: 03-05-2021 Subsequent hospital visit by physician [facility] Short Stay Infusion Chair 03 [facility] Comment on above: CC (Crohn's colitis) , without complications (HCC) (Primary Dx); Ulcerative colitis with complication, unspecified location (HCC) Start: 02-05-2021 End: 02-05-2021 Subsequent hospital visit by physician Katiana Short Stay Infusion Chair 03 [facility] Comment on above: CC (Crohn's colitis) , without complications (HCC) (Primary Dx); Ulcerative colitis with complication, unspecified location (HCC) Start: 10-23-2020 End: 10-25-2020 Subsequent hospital visit by physician Katiana Ir Nurse 1 [facility] Comment on above: Crohn's disease of b oth small and large intestine without complication (HCC) Start: 05-01-2020 End: 05-01-2020 Subsequent hospital visit by physician Catrachita Mitchell Work Phone: [facility] Start: 01-04-2018 End: 01-10-2018 Patient encounter YOHANA Masha [place] Facility:[facility] Procedures Date Procedure Procedure Detail Performing Clinician Start: 08-25-2023 Comprehensive metabo lic panel Catrachita Mitchell MD Work Phone: Start: 01-13-2023 Adult depression scr eening assessment Angela Yanez MD Work Phone: Start: 01-13-2023 Microscopic observat ion [Identifier] in Cervix by Cyto stain Angela Yanez MD Work Phone: Start: 11-04-2022 Assay of lipase Vincent Dela Cruz SHIRRING 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 AUTOMATIC - TEST DESIGN ENGINEER Work Phone: Start: 09-09-2022 Assay of lipase Kunal Mitchell MD Work Phone: Start: 07-15-2022 Assay of lipase Kunal Mitchell MD Work Phone: Start: 05-06-2022 Assay of lipase Kunal Mitchell MD Work Phone: Start: 03-11-2022 Assay of lipase Kunal Mitchell MD Work Phone: Start: 03-11-2022 Urine test visual color cmprsn meths Catrachita Mitchell MD Work Phone: Start: 03-11-[address] Start: 01-14-2022 Assay of lipase Kunal Mitchell MD Work Phone: Start: 01-14-2022 C-reactive protein Nabeel Dela Cruz SHIRRING 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 AUTOMATIC - TEST DESIGN ENGINEER Work Phone: Start: 03-05-2021 Assay of lipase Kunal Mitchell MD Work Phone: Start: 02-05-2021 Assay of lipase Kunal Mitchell MD Work Phone: Start: 10-23-2020 Mri abdomen w/o & w/contrast material Catrachita Mitchell MD Work Phone: Start: 05-01-2020 Urine test visual color cmprsn meths Catrachita Mitchell Work Phone: Start: 05-01-2020 COVID-19 Catrachita Mitchell Work Phone: Plan of Treatment Date Care Activity Detail Author Start: 2042 Screening for malignant neoplasm of colon Sigmoidoscopy/CT colonography [facility] Start: 01-13-2026 Screening for malignant neoplasm of cervix Pap Smear [facility] Start: 09-27-2024 Adult BMI Screening Adult BMI Screening [facility] [employer] [facility] Start: 09-27-2024 Tobacco Screening Tobacco Screening [facility] [employer] [facility] Start: 08-11-2024 Adult BMI Screening Adult BMI Screening [facility] [employer] [facility] Start: 06-02-2024 Tobacco Screening Tobacco Screening [facility] Start: 02-25-2024 Influenza vaccination Influenza Vaccine [facility] Start: 02-09-2024 ambulatory [facility] Start: 01-14-2024 Adult BMI Follow Up Plan Adult BMI Follow Up Plan [facility] Start: 01-14-2024 Depression Screening Depression Screening [facility] Start: 12-15-2023 ambulatory [facility] Start: 10-20-2023 End: 10-20-2023 Patient encounter procedure 10/20/2023 8:00 AM EDT Appointment [facility] [address] [place] [address] Remicade 5mg/kg every 8 weeks [facility]hips from [facility] Comment on above: Remicade 5mg/kg every 8 weeks [facility] from [facility] Start: 09-28-2023 End: 09-27-2024 Herpes simplex virus by PCR,[facility] Comment on above: Expected: 09/28/2023 (Approximate), Expi res: 09/27/2024 Start: 09-15-2023 End: 09-15-2023 Admission to same day surgery center 09/15/2023 7:30 AM EDT - 09/15/2023 8:00 AM EDT Surgery [facility] [address] [place] [address] Catrachita Mitchell MD [address] [address] COLONOSCOPY DIAGNOSTIC [facility] Comment on above: COLONOSCOPY DIAGNOSTIC Start: 09-15-2023 End: 09-15-2023 Colonoscopy flx dx w/collj spec when pfrmd COLONOSCOPY DIAGNOSTIC Crohn's disease of both small and large intestine without complication (HCC) 09/15/2023 7:30 AM EDT [facility] Start: 09-15-2023 Subsequent hospital visit by physician 09/15/2023 7:30 AM EDT Hospital Encounter [facility] [address] [place] [address] Catrachita Mitchell MD [address] [address] [facility] Start: 09-01-2023 End: 09-01-2023 Patient encounter procedure 09/01/2023 9:30 AM EST Appointment [facility] Pre-Admit Testing [address] [place] [address] OR 09/14 [facility] Comment on above: OR 09/14 Start: 03-11-2023 Screening for malignant neoplasm of colon [facility] Start: 02-24-2023 Influenza vaccination Influenza Vaccine [facility] [employer] [facility] Start: 01-24-2023 Influenza vaccination [facility] Start: 01-06-2023 End: 01-06-2023 Patient encounter procedure 01/06/2023 Appointment Infusion Therapy [facility] Start: 12-31-2022 Screening for Chlamydia trachomatis [facility] Start: 12-30-2022 End: 12-30-2022 Patient encounter procedure 12/30/2022 Appointment Infusion Therapy [facility] Start: 11-04-2022 End: 11-04-2022 Patient encounter procedure 11/04/2022 Appointment Infusion Therapy [facility] Start: 10-07-2022 End: 10-07-2022 Patient encounter procedure 10/07/2022 Office Visit Gastroenterology Vincent Dela Cruz APRN - TEST DESIGN ENGINEER [address] [place] [address] [facility] Start: 09-09-2022 End: 09-09-2022 Patient encounter procedure 09/09/2022 Appointment Infusion Therapy [facility] Start: 08-26-2022 End: 08-26-2022 Patient encounter procedure 08/26/2022 Appointment Infusion Therapy [facility] Start: 07-01-2022 End: 07-01-2022 Patient encounter procedure 07/01/2022 Appointment Infusion Therapy [facility] Start: 05-13-2022 End: 05-13-2022 Patient encounter procedure 05/13/2022 Appointment Infusion Therapy [facility] Start: 05-06-2022 End: 05-06-2022 Patient encounter procedure 05/06/2022 Appointment Infusion Therapy [facility] Start: 03-18-2022 End: 03-18-2022 Patient encounter procedure 03/18/2022 Appointment Infusion Therapy [facility] Start: 03-11-2022 End: 03-11-2022 Admission to same day surgery center 03/11/2022 Surgery Endoscopy Catrachita Mitchell MD [address] [place] [address] COLONOSCOPY DIAGNOSTIC [facility] Comment on above: COLONOSCOPY DIAGNOSTIC Start: 03-11-2022 Subsequent hospital visit by physician 03/11/2022 Hospital Encounter Endoscopy Catrachita Mitchell MD [address] [place] [address] [facility] Start: 03-11-2022 End: 03-11-2022 Colonoscopy flx dx w/collj spec when pfrmd [facility] Start: 02-25-2022 End: 02-25-2022 Patient encounter procedure 02/25/2022 Appointment Pre-Admission Testing [facility] Start: 02-24-2022 Influenza vaccination Flu vaccine (#1) [facility] [employer] Start: 01-24-2022 Influenza vaccination Flu vaccine (#1) [facility] [employer] Start: 04-30-2021 End: 04-30-2021 Patient encounter procedure 04/30/2021 Appointment Infusion Therapy [facility] Start: 03-05-2021 End: 03-05-2021 Patient encounter procedure 03/05/2021 Appointment Infusion Therapy [facility] Start: 02-24-2021 [facility] Start: 05-15-2020 End: 05-15-2020 Office Visit 05/15/2020 Office Visit Gastroenterology Vincent Dela Cruz, TIANA - HUA [address] [place] [address] [phone] [facility] Start: 02-25-2020 Influenza vaccination Flu vaccine (#1) [facility] [place] Start: 2018 Screening for malignant neoplasm of cervix [id number] Start: 2016 DTaP,Tdap and Td Vaccines (1 - Tdap) DTaP,Tdap and Td Vaccines (1 - Tdap) [facility] Start: 2016 DTaP/Tdap/Td vaccine (1 - Tdap) DTaP/Tdap/Td vaccine (1 - Tdap) [facility] Start: 10-31-2015 Hepatitis C screening Hepatitis C screen [facility] Start: 2013 COVID-19 Vaccine (1) COVID-19 Vaccine (1) [facility] [employer] [facility] Phone: Start: 2013 Screening for Chlamydia trachomatis Chlamydia screen [place], [place] Start: 2012 HIV screening HIV screen [facility] Start: 2009 COVID-19 Vaccine (1) COVID-19 Vaccine (1) [facility] [employer] [facility] Phone: Start: 2009 Depression Screen Depression Screen [facility] Start: 2008 HPV vaccine (1 - 2-dose series) HPV vaccine (1 - 2-dose series) [facility] Start: 1998 Varicella vaccine (1 of 2 - 2-dose childhood series) Varicella vaccine (1 of 2 - 2-dose childhood series) [facility] Start: 05-02-1998 COVID-19 Vaccine (#1) COVID-19 Vaccine (#1) [facility] Start: 1997 Hepatitis B vaccine (1 of 3 - 3-dose series) Hepatitis B vaccine (1 of 3 - 3-dose series) [facility] Start: 1997 Hepatitis C screening Hepatitis C screen [facility] Phone: End: 09-28-2024 Chlamydia/GC by PCR Darren Swab Chlamydia/GC by PCR Darren Swab Microbiology Routine Screen for STD (sexually transmitted disease) 1 Occurrences starting 09/28/2023 until 09/28/2024 [facility] Work Phone: Comment on above: 1 Occurrences starting 09/28/2023 until 09/28/2024 End: 05-01-2020 COVID-19 COVID-19 Lab Routine One Time for 1 Occurrences starting 05/01/2020 until 05/01/2020 [place] Comment on above: One Time for 1 Occurrences starting 11/2019 until 05/01/2020 End: 03-11-2022 INITIATE PACU OXYGEN THERAPY PROTOCOL Initiate PACU Oxygen Therapy Protocol Respiratory Care Routine Continuous until discontinued starting 03/11/2022 [employer] Phone: Comment on above: Continuous until discontinued starting 0 03/11/2022 Oxygen therapy [Minimum Data Set] Initiate Oxygen Therapy Protocol Respiratory Care Routine Daily until discontinued starting 05/01/2020 [facility] [employer] Comment on above: Daily until discontinued starting 2019 Oxygen therapy [Minimum Data Set] Initiate Oxygen Therapy Protocol Respiratory Care Routine Daily until discontinued starting 03/11/2022 [employer] Phone: Comment on above: Daily until discontinued starting 2021 Phase I & II - metered glucose Phase I & II - metered glucose Point of Care Testing Routine As Needed until discontinued starting 05/01/2020 [facility] [place] Comment on above: As Needed until discontinued starting Surgical Pathology Surgical Path ology Lab Routine Release Upon Ordering for 1 Occurrences starting 05/01/2020 [facility] Comment on above: Release Upon Ordering for 1 Occurrences starting 05/01/2020 End: 05-01-2020 Surgical Pathology Surgical Pathology Lab Routine Once for 1 Occurrences starting 05/01/2020 until 05/01/2020 [facility] Comment on above: Once for 1 Occurrences starting 05/01/20 20 until 05/01/2020 [facility] Pathology Surgical Path ology Lab Routine Crohn's disease of small and large intestines with complication (HCC) Release Upon Ordering for 1 Occurrences starting 03/11/2022 [facility] [employer] Phone: Comment on above: Release Upon Ordering for 1 Occurrences starting 03/11/2022 End: 09-27-2024 Vaginitis Panel PCR Vaginitis Panel PCR Microbiology Routine Screen for STD (sexually transmitted disease) 1 Occurrences starting 09/28/2023 until 09/27/2024 [employer] Comment on above: 1 Occurrences starting 09/28/2023 until 09/27/2024 Payers Date Payer Category Payer Private Health Insurance [facility] [id number] 2022-[facility] [phone] [address] [address] [place] [address] [id number] 2022 Unknown [id number]. [id number] 2019 Unknown [id number] [id number]. [id number] 2018 Unknown 2014 Unknown [id number] [id number]. 2.7.3.246596.315 1997 Unknown [id number] 2.16840.1.187068.3.579. 2.1285 1997 Unknown [id number] 2.16840.1.840570.3.579. 2.1285 1997 Unknown [id number] 2.16840.1.749971.3.579. 2.1285 1997 Unknown [id number] 2.16.840.1.487151.3.579. 2.176 1997 Unknown [id number] 2.16.840.1.274511.3.579. 2.176 1997 Unknown [id number] 2.16840.1.100334.3.579. 2.176 1997 Unknown [id number] 2.16840.1.484809.3.579. 2.176 1997 Unknown [id number] 2.16.840.1.011129.3.579. 2.176 1997 Unknown [id number] 2.16.840.1.472359.3.579. 2.176 1997 Unknown [id number] 2.16.840.1.044107.3.579. 2.176 1997 Unknown [id number] 2.16.840.1.486827.3.579. 2.176 1997 Unknown [id number] 2.16.840.1.757374.3.579. 2.176 1997 Unknown [id number] 2.16.840.1.023538.3.579. 2.176 1997 Unknown [id number] 2.16.840.1.331132.3.579. 2.176 1997 Unknown [id number] 2.16.840.1.497130.3.579. 2.176 1997 Unknown [id number] 2.16.840.1.303102.3.579. 2.176 Social History Date Type Detail Facility Start: 05-01-2020 End: 06-21-2022 Tobacco smoking status NHIS Never smoker [place] Start: 05-01-2020 End: 06-21-2022 Tobacco use and exposure Never used [place], [place] Start: 05-01-2020 End: 09-28-2023 Alcohol intake Current drinker of alcohol (finding) [place], [place] Start: 04-17-2020 Alcohol Comment rarely [place], [place] Start: 1997 Sex Assigned At Not on file [place] Start: 03-01-2022 End: 04-07-2022 Exposure to SARS-CoV-2 (event) Not sure [place] Start: 08-06-2020 End: 08-11-2023 History of Social function [facility] Start: 08-06-2020 End: 08-11-2023 Tobacco use panel [facility] Adolescent depressio n screening assessment 0 [facility] Start: 12-29-2020 Alcohol Comment socially 2-3 d rinks on occasion [facility] Clinical Notes 02-05-2021 to 10-10-2023 Telephone Encounter - Gracie Davis - 10/10/2023 9:57 AM EDTTelephone Encounter - JORDAN Melo - 10/10/2023 9:57 AM FIGUEROA Rose CNP - 09/28/2023 11:30 AM EDTAttachments Note Date & Type Note Facility 10-10-2023 Miscellaneous Notes Formattin g of this note might be different from the original. Patient called in regarding her culture results. She was notified of results & voiced understanding. She would like a prescription gel for the BV as she cannot swallow the flagyl pills. Pharmacy information verified. Please advise. Thank you. RX for metrogel sent. LVM for patient to call the office Patient returned my call & was notified. Patient voiced understanding documented in this encounter [facility] 10-10-2023 Telephone encount er Note Patient called in regarding her culture results. She was notified of results & voiced understanding. She would like a prescription gel for the BV as she cannot swallow the flagyl pills. Pharmacy information verified. Please advise. Thank you. [facility] 10-10-2023 Telephone encount er Note RX for metrogel sent. [facility] 10-10-2023 Telephone encount er Note LVM for patient to call the office [facility] 10-10-2023 Telephone encount er Note Patient returned my call & was notified. Patient voiced understanding [facility] [employer] [facility] 09-28-2023 History of Presen t illness Narrative Images from the original note were not included. Toy Morgan is a 27 y.o.female. No LMP recorded.. She presents with a vaginal lump. Pt reports she first noticed it this Monday when inserting Boric Acid tablets vaginally. Pt denies any pain or discomfort from lump. No vaginal itching, burning or odor. Denies pelvic pain. Patient agrees to STD testing. She is currently sexually active with one male partner. Current contraception:condoms most of the time OB History 0 Para 0 Term 0 0 AB 0 Living 0 SAB 0 IAB 0 Ectopic 0 Multiple 0 Live Births 0 MEDICAL HX Past Medical History: Diagnosis Date Abnormal Pap smear of cervix ASCUS Acute Crohn's disease (CMS-HCC) Skin abnormalities [facility] SURGICAL HX Past Surgical History: Procedure Laterality Date COLONOSCOPY COLPOSCOPY WISDOM TOOTH EXTRACTION FAMILY HX Family History Problem Relation Age of Onset No Known Problems Father No Known Problems Mother Colon cancer Neg Hx Breast cancer Neg Hx Ovarian cancer Neg Hx MEDS Current Outpatient Medications Medication Sig Dispense Refill clindamycin (CLEOCIN T) 1 % lotion APPLY TOPICALLY TO THE AFFECTED AREA DAILY NEEDED FOR IRRITATION OR RASH (Patient not taking: Reported on 08/11/2023) clobetasoL (TEMOVATE) 0.05 % cream Apply 1 application topically in the morning and 1 application before bedtime. (Patient not taking: Reported on 08/11/2023) 30 g 0 clobetasoL (TEMOVATE) 0.05 % external solution MIX ENTIRE BOTTLE WITH 1LB JAR OF CERAVE AND APPLY TO AFFECTED AREAS TWICE DAILY NEEDED FOR ITCH inFLIXimab-dyyb (INFLECTRA) 100 mg injection Infuse 5 mg/kg into a venous catheter once. No current facility-administered medications for this visit. ALLERGIES Allergies Allergen Reactions Adalimumab Penicillins Review of Systems Review of Systems Constitutional: Negative. Genitourinary: Positive for genital sores. Negative for dyspareunia, pelvic pain and vaginal discharge. Neurological: Negative. Psychiatric/Behavioral: Negative. Objective BP 116/68 Ht 149.9 cm (4' 11 ) Wt 61.7 kg (136 lb) BMI 27.47 kg/m Physical Exam Vitals and nursing note reviewed. Constitutional: Appearance: Normal appearance. Pulmonary: Effort: Pulmonary effort is normal. Genitourinary: Comments: 2mm raised lesion noted in area marked in red above. No drainage or tenderness. HSV culture collected. Musculoskeletal: General: Normal range of motion. Skin: General: Skin is warm and dry. Neurological: Mental Status: She is alert and oriented to person, place, and time. Psychiatric: Mood and Affect: Mood normal. Speech: Speech normal. Behavior: Behavior normal. Thought Content: Thought content normal. Judgment: Judgment normal. Assessment/Plan: Toy was seen today for vaginal lump. Diagnoses and all orders for this visit: Vulvar lesion - Herpes simplex virus by PCR,Lesion; Future Screen for STD (sexually transmitted disease) - Chlamydia/GC by PCR Darren Swab; Future - Vaginitis Panel PCR; Future - Herpes simplex virus by PCR,Lesion; Future Await cultures and treat as indicated. All questions answered. Consistent condom use recommended. Educational material provided through [employer]. RTO for annual (due December 2023) or sooner as needed. GREYSON MENDEZ APRN-CNP Lisa M Franco, APRN-CNP 09/28/23 1152 documented in this encounter [facility] 09-28-2023 Miscellaneous Notes Addended by: JOY PENNY on: 09/28/2023 11:58 AM Modules accepted: Orders documented in this encounter [facility] 09-28-2023 Note Addended by: JOY PENNY on: 09/28/2023 11:58 AM Modules accepted: Orders [facility] 08-25-2023 History of Presen t illness Narrative Pt arrived ambulatory to outpatient infusion. Vitals completed. IV inserted LAC, 22g, without any complications. Pre meds given per orders. Infusion began at 0855 and completed at 1002. Pt tolerated well. Vitals completed, no adverse reactions noted. IV removed per policy. Pt ambulatory at discharge. documented in this encounter [facility] 08-11-2023 History of Presen t illness Narrative Images from the original note were not included. HISTORY OF PRESENT ILLNESS: Toy is a 27 y.o. female who presents for new patient evaluation and consultation regarding food and drug allergy. She was referred by Yohana Waldron MD. PCP: NO PCP, NO PCP Allergic rhinitis/conjunctivitis: Toy experiences rhinorrhea, congestion, and sneezing that is worst in the Spring. She does not take any medications for her symptoms. There is no mold or moisture damage in the home. There is one cat in the home. There is no smoke exposure in the home. There is no pest infestation in the home. Food allergy: On 06/24/23, Toy consumed 3 shrimp and experienced upper lip tingling. On 06/25/23, she consumed 10 shrimp and experienced left-sided jaw swelling. She denies vomiting, difficulty breathing, rash, hives, or GI symptoms with either ingestion. Toy has previously tolerated shrimp, crab, lobster, and fish. She is currently avoiding all seafood. Drug allergy: Toy has a documented allergy to penicillin. She reports developing hives after taking the medication as a child. She was evaluated at the ER, but notes that this was likely unnecessary given the low severity of her symptoms. Toy reports she then took amoxicillin in 2019 with no development of hives. Rash: Toy sometimes presents with a pruritic, full body rash that she treats topically with clobetasol 0.05% and clindamycin 1% QD. She was previously evaluated by Dermatology for suspected psoriasis. No prior history of asthma, hives or angioedema, hymenoptera allergy, eczema, or recurrent infections. PAST MEDICAL HISTORY: Past Medical History: Diagnosis Date Abnormal Pap smear of cervix ASCUS Acute Crohn's disease (CMS-HCC) Skin abnormalities Ulcerative colitis (CMS-HCC) PAST SURGICAL HISTORY: Past Surgical History: Procedure Laterality Date COLONOSCOPY COLPOSCOPY WISDOM TOOTH EXTRACTION FAMILY HISTORY: Family History Problem Relation Age of Onset No Known Problems Father No Known Problems Mother Colon cancer Neg Hx Breast cancer Neg Hx Ovarian cancer Neg Hx SOCIAL HISTORY: Social History Socioeconomic History Marital status: Single Spouse name: Not on file Number of children: Not on file Years of education: Not on file Highest education level: Not on file Occupational History Not on file Tobacco Use Smoking status: Never Smokeless tobacco: Never Vaping Use Vaping Use: Never used Substance and Sexual Activity Alcohol use: Yes Comment: socially 2-3 drinks on occasion Drug use: Never Sexual activity: Yes Partners: Male control/protection: I.U.D. Other Topics Concern Not on file Social History Narrative Not on file Social Determinants of Health Financial Resource Strain: Not on file Food Insecurity: No Food Insecurity (08/11/2023) Hunger Screening Food Insecurity - Worry: Never True Food Insecurity - Inability: Never True Transportation Needs: Not on file Physical Activity: Not on file Stress: Not on file Social Connections: Not on file Interpersonal Safety: Not on file Housing Instability: Not on file ALLERGY: Allergies Allergen Reactions Adalimumab Penicillins MEDICATIONS Current Outpatient Medications Medication Sig Dispense Refill clobetasoL (TEMOVATE) 0.05 % external solution MIX ENTIRE BOTTLE WITH 1LB JAR OF CERAVE AND APPLY TO AFFECTED AREAS TWICE DAILY NEEDED FOR ITCH inFLIXimab-dyyb (INFLECTRA) 100 mg injection Infuse 5 mg/kg into a venous catheter once. clindamycin (CLEOCIN T) 1 % lotion APPLY TOPICALLY TO THE AFFECTED AREA DAILY NEEDED FOR IRRITATION OR RASH (Patient not taking: Reported on 08/11/2023) clobetasoL (TEMOVATE) 0.05 % cream Apply 1 application topically in the morning and 1 application before bedtime. (Patient not taking: Reported on 08/11/2023) 30 g 0 levonorgestreL (KYLEENA) 17.5 mcg/24 hrs (5 yrs) 19.5 mg intrauterine device IUD 1 each by intrauterine route once. No current facility-administered medications for this visit. ROS: A comprehensive 10+ review of systems was negative except for symptoms noted in HPI. Additional positives include: None. Physical Exam General appearance: well-nourished, well-hydrated, in NAD Head: No scalp scaling, no scalp rash, no alopecia Neck: No cervical LAD, full neck ROM Eyes: EOMI, no conjunctival injection, no infraorbital darkening, no periorbital edema or rash ENT: Right TM- clear, +light reflex, no effusions, not bulging Left TM- clear, +light reflex, no effusions, not bulging Nose: External nose symmetric, septum midline, no nasal turbinate hypertrophy, normal nasal mucosa, no rhinorrhea, no visible polyps Mouth: No oropharyngeal lesions, normal tonsils CV: Normal rate, regular rhythm, no murmur, 2+ peripheral pulses, cap refill <2s Respiratory: Comfortable WOB, normal RR, no stertor, no stridor, CTAB with good aeration throughout all lung taylor Abdomen: non-distended Skin: No rash, hives, angioedema, or excoriations Neurologic: No focal deficit, normal gait Labs, imaging, and records: I have personally reviewed the labs/imaging below: Results for orders placed or performed during the hospital encounter of 01/13/23 Vaginitis Panel PCR Specimen: Vaginal Result Value Ref Range Bact. Vaginosis DNA Detected (A) Not Detected^Not Detected Jose Species DNA Not Detected Not Detected^Not Detected Jose Krusei DNA Not Detected Not Detected^Not Detected Jose Glabrata DNA Not Detected Not Detected^Not Detected Trichomonas Vag DNA Not Detected Not Detected^Not Detected Skin Prick Testing Allergy Skin Testing done by prick (puncture) technique Read: 08/11/2023 3:29 PM Chun tree Wheal: 0 Flare: 0 Elm Wheal: 0 Flare: 0 Birch tree Wheal: 0 Flare: 0 Braxton Wheal: 0 Flare: 0 Boxelder (Maple) Wheal: 0 Flare: 0 Lakin Wheal: 0 Flare: 0 Arthur Wheal: 0 Flare: 0 Louisburg Wheal: 0 Flare: 0 Sanderson Wheal: 0 Flare: 0 Delong grass Wheal: 0 Flare: 0 [place] Wheal: 0 Flare: 0 Holden grass Wheal: 0 Flare: 0 [place] Wheal: 0 Flare: 0 Kentucky bluegrass Wheal: 7 Flare: 30 Bermuda Wheal: 0 Flare: 0 Louie grass Wheal: 9 Flare: 30 Dock/sorrel Wheal: 0 Flare: 0 Nettle Wheal: 0 Flare: 0 Indonesian plantain Wheal: 0 Flare: 0 Pigweed Wheal: 0 Flare: 0 Kochia Wheal: 0 Flare: 0 Ragweed Wheal: 0 Flare: 0 Marshelder Wheal: 0 Flare: 0 Luxembourger thistle Wheal: 0 Flare: 0 Deangelo Wheal: 0 Flare: 0 Cladosporium Wheal: 0 Flare: 0 Alternaria Wheal: 0 Flare: 0 Epicoccum nigrum Wheal: 0 Flare: 0 Aspergillus fumigatus Wheal: 0 Flare: 0 Penicillium Wheal: 0 Flare: 0 Jose albicans Wheal: 0 Flare: 0 Trichophyton Wheal: 0 Flare: 0 D. farinae Wheal: 7 Flare: 30 Cat Wheal: 0 Flare: 0 D. pteronyssius Wheal: 6 Flare: 35 Rat Wheal: 0 Flare: 0 Feathers Wheal: 0 Flare: 0 Dog epithelium Wheal: 0 Flare: 0 Cockroach Wheal: 0 Flare: 0 UF Dog Wheal: 0 Flare: 0 Gerbil Wheal: 0 Flare: 0 Mouse Wheal: 0 Flare: 0 Guinea pig Wheal: 0 Flare: 0 Rabbit Wheal: 0 Flare: 0 Hamster Wheal: 0 Flare: 0 Saline Wheal: 0 Flare: 0 Horse Wheal: 0 Flare: 0 Histamine Wheal: 7 Flare: 40 Lobster Wheal: 0 Flare: 0 Oyster Wheal: 0 Flare: 0 Shrimp Wheal: 0 Flare: 0 Clam Wheal: 0 Flare: 0 Crab Wheal: 0 Flare: 0 Mussels Wheal: 0 Flare: 0 The skin testing results were interpreted by the attending clinician as follows: Positive for perennial allergens, Positive for seasonal allergies Assessment/ Plan: 1. Seasonal allergic rhinitis due to pollen - SPT 08/11/23 positive for grass pollen and HDM - Pt counseled and provided written instructions on allergen avoidance. - Symptoms mild, treatment indicated only prn - Ambulatory referral to Allergy / Immunology ([facility]) 2. Allergic rhinitis due to dust mite 3. Adverse reaction to food, initial encounter - Pt with mild symptoms following shrimp ingestion, and only with larger amounts ingested - No airway symptoms or anaphylaxis - No symptoms with smaller ingestions - SPT for shrimp and other shellfish is negative - We discussed avoidance of triggering foods, but OK to eat foods and quantities that are tolerated - Pt should strictly avoid any foods that cause difficulty breathing, throat swelling, or systemic symptoms. 4. Adverse reaction to drug, initial encounter - Prior low-risk history of hives with penicillin at age 8 - Pt reports she may have taken amoxicillin without a reaction at age 21 - Advised patient she is highly likely to be non-allergic to penicillins - Pt declined de-labeling, declined repeat amoxicillin challenge No follow-ups on file. Angela Yanez MD [facility] Allergy and Immunology Total time spent was 30 minutes: Preparing to see the patient (e.g., review of tests) Obtaining and/or reviewing separately obtained history Performing a medically appropriate examination and/or evaluation Counseling and educating the patient/family/caregiver Ordering medications, tests, or procedures Documenting clinical information in the electronic or other health record This time spent does not include the time used for the procedures performed in clinic today 56181- 15-29 min 80801 -10-19 min 34065 - 30-44 min 58440 - 20-29 min 18973 - 45-59 min 61317 - 30-39 min 56347 - 60-74 min 13610 - 40-54 min Scribe Statement: Scribed for and in the presence of Angela Yanez MD by Yolanda Jarvis. I, Angela Yanez MD, personally performed the services described in the documentation, as scribed in my presence, and confirm that the documentation is both accurate and complete. documented in this encounter [facility] 08-11-2023 Instructions Yolanda Jarvis - 08/11/2023 3:15 PM EST Skin Prick Testing Allergy Skin Testing done by prick (puncture) technique Read: 08/11/2023 3:29 PM Chun tree Wheal: 0 Flare: 0 Elm Wheal: 0 Flare: 0 Birch tree Wheal: 0 Flare: 0 Braxton Wheal: 0 Flare: 0 Boxelder (Maple) Wheal: 0 Flare: 0 Lakin Wheal: 0 Flare: 0 Arthur Wheal: 0 Flare: 0 [place] Wheal: 0 Flare: 0 Sanderson Wheal: 0 Flare: 0 Delong grass Wheal: 0 Flare: 0 [place] Wheal: 0 Flare: 0 Holden grass Wheal: 0 Flare: 0 [place] Wheal: 0 Flare: 0 [place] bluegrass Wheal: 7 Flare: 30 Bermuda Wheal: 0 Flare: 0 Louie grass Wheal: 9 Flare: 30 Dock/sorrel Wheal: 0 Flare: 0 Nettle Wheal: 0 Flare: 0 Indonesian plantain Wheal: 0 Flare: 0 Pigweed Wheal: 0 Flare: 0 Kochia Wheal: 0 Flare: 0 Ragweed Wheal: 0 Flare: 0 Marshelder Wheal: 0 Flare: 0 Luxembourger thistle Wheal: 0 Flare: 0 Deangelo Wheal: 0 Flare: 0 Cladosporium Wheal: 0 Flare: 0 Alternaria Wheal: 0 Flare: 0 Epicoccum nigrum Wheal: 0 Flare: 0 Aspergillus fumigatus Wheal: 0 Flare: 0 Penicillium Wheal: 0 Flare: 0 Jose albicans Wheal: 0 Flare: 0 Trichophyton Wheal: 0 Flare: 0 D. farinae Wheal: 7 Flare: 30 Cat Wheal: 0 Flare: 0 D. pteronyssius Wheal: 6 Flare: 35 Rat Wheal: 0 Flare: 0 Feathers Wheal: 0 Flare: 0 Dog epithelium Wheal: 0 Flare: 0 Cockroach Wheal: 0 Flare: 0 UF Dog Wheal: 0 Flare: 0 Gerbil Wheal: 0 Flare: 0 Mouse Wheal: 0 Flare: 0 Guinea pig Wheal: 0 Flare: 0 Rabbit Wheal: 0 Flare: 0 Hamster Wheal: 0 Flare: 0 Saline Wheal: 0 Flare: 0 Horse Wheal: 0 Flare: 0 Histamine Wheal: 7 Flare: 40 Lobster Wheal: 0 Flare: 0 Oyster Wheal: 0 Flare: 0 Shrimp Wheal: 0 Flare: 0 Clam Wheal: 0 Flare: 0 Crab Wheal: 0 Flare: 0 Mussels Wheal: 0 Flare: 0 The skin testing results were interpreted by the attending clinician as follows: Positive for perennial allergens, Positive for seasonal allergies Pollen Allergy The types of pollen that most commonly cause allergies are made by plants (trees, grasses, and weeds) that do not have showy francois. Pollen can travel through the air over great distances, and is hard to avoid. Tree pollen season is August - October Grass pollen season is October - November Harmony pollen season is January - March. The following may be helpful for you: 1. Check pollen counts and avoid spending a lot of time outdoors when counts are high. http://www.aaaai.org/global/na q-huqzrb-vgtbbj.aspx 2. After spending time outdoors, change your clothes, and wash your hair before bed. 3. Keep windows closed, especially when pollen counts are high, and use air conditioning instead. 4. Wear a mask when gardening. Dust Mite Allergy Dust mites are tiny arthropods that live in bedding, upholstered furniture, and carpets. They thrive in warm, humid conditions. Dust mites and their waste products are the main causes of an allergic reaction to dust. The following may be helpful for you: 1. Use allergy-proof coverings on mattress, box spring, and pillows. These are available online and in stores (such as [employer], [employer] and beyond). 2. Wash bedding weekly in HOT water to kill dust mites. 3. Vacuum twice per week (the patient should not do the vacuuming). Use HEPA (high efficiency particulate air) filters or double-ply bags in the vacuum septic cleaner. 4. Dust every week with damp cloth. If someone else can't dust and vacuum for you, take your medication before doing these tasks. Wearing a filter mask may help. 5. Remove carpets in bedroom, if able. 6. Remove things that collect dust (such as books, stuffed animals, etc) from the bedroom. 7. Reduce indoor humidity to <50%, using a dehumidifier. [facility] History of Presen t illness Narrative Pt arrived for Inflectra infusion. Vitals obtained and labs drawn from PIV started in L AC. Pre meds given. Infusion started at 08:45, titrated per protocol, and ended at 11:02. Pt tolerated well. No s/s adverse reaction noted. Vitals remained stable as charted. PIV removed. Pt discharged home, ambulatory per self. documented in this encounter [employer] Phone: 09-09-2022 History of Presen t illness Narrative Pt arrived for Inflectra infusion. Vitals obtained and labs drawn from PIV started in L AC. Pre meds given. Infusion started at 08:33, titrated per protocol, and ended at 10:38. Pt tolerated well. No s/s adverse reaction noted. Vitals remained stable as charted. PIV removed. Pt discharged home, ambulatory per self. documented in this encounter [employer] Phone: 07-15-2022 History of Presen t illness Narrative Pt arrived for Inflectra infusion. Vitals obtained and labs drawn from PIV started in L AC. Pre meds given. Infusion started at 08:49, titrated per protocol, and ended at 10:51. Pt tolerated well. No s/s adverse reaction noted. Vitals remained stable as charted. PIV removed. Pt discharged home, ambulatory per self. documented in this encounter [facility] Phone: 05-06-2022 History of Presen t illness Narrative Pt arrived for Remicade infusion. Vitals obtained and labs drawn. PIV started in L AC. Infusion started at 836, titrated per protocol, and ended at 1035. Pt tolerated well. No s/s adverse reaction noted. Vitals remained stable as charted. PIV removed. Pt discharged home, ambulatory per self. documented in this encounter [facility] Phone: 03-11-2022 History of Presen t illness Narrative Pt arrived for Inflectra infusion. Vitals obtained and labs drawn. PIV already in place from surgery. Pre meds given. Infusion started at 09:12, titrated per protocol, and ended at 11:27. Pt tolerated well. No s/s adverse reaction noted. Vitals remained stable as charted. PIV removed. Pt discharged home, ambulatory per self with mother. documented in this encounter [facility] [employer] Work Phone: 03-11-2022 Hospital Discharg e instructions Melia Nazario RN - 03/11/2022 7:47 AM EDT Images from the original note were not included. To see in the office in the next 4 to 6 weeks Sedation or General Anesthesia, Adult Care After Refer to this sheet in the next 24 hours. These instructions provide you with information on caring for yourself after your procedure. Your caregiver may also give you more specific instructions. Your treatment has been planned according to current medical practices, but problems sometimes occur. Call your caregiver if you have any problems or questions after your procedure. HOME CARE INSTRUCTIONS Do not participate in any activities that require you to be alert or coordinated. Do not: Drive. Swim. Ride a bicycle. Operate heavy machinery. Cook. Use power tools. Climb ladders. Work at heights. Take a bath. Do not drink alcohol. Do not make any important decisions or sign legal documents. Stay with an adult. The first meal following your procedure should be light and small. Avoid solid foods if you feel sick to your stomach (nauseous) or if you throw up (vomit). Drink enough fluids to keep your urine clear or pale yellow. Only take your usual medicines or new medicines if your caregiver approves them. Only take epiw-sub-[id number] or prescription medicines for pain, discomfort, or fever as directed by your caregiver. Keep all follow-up appointments as directed by your caregiver. SEEK IMMEDIATE MEDICAL CARE IF: You are not feeling normal or behaving normally after 24 hours. You have persistent nausea and vomiting. You are unable to drink fluids or eat food. You have difficulty urinating. You have difficulty breathing or speaking. You have blue or bauer skin. There is difficulty waking or you cannot be woken up. You have heavy bleeding, redness, or a lot of swelling where the sedative or anesthesia entered your skin (intravenous site). You have a rash. MAKE SURE YOU: Understand these instructions. Will watch your condition. Will get help right away if you are not doing well or get worse. Document Released: 06/12/2006 Document Revised: 12/11/2012 Document Reviewed: 10/10/2012 [facility] Patient Information 2013 [employer]. Colonoscopy: What to Expect at Home Your Recovery After you have a colonoscopy, you will stay at the clinic for 1 to 2 hours until the medicines wear off. Then you can go home, but you will need to arrange for a ride. Your doctor will tell you when you can eat and do your other usual activities. Your doctor will talk to you about when you will need your next colonoscopy. The results of your test and your risk for colorectal cancer will help your doctor decide how often you need to be checked. After the test, you may be bloated or have gas pains. You may need to pass gas. If a biopsy was done or a polyp was removed, you may have streaks of blood in your stool (feces) for a few days. This care sheet gives you a general idea about how long it will take for you to recover. But each person recovers at a different pace. Follow the steps below to get better as quickly as possible. How can you care for yourself at home? Activity Rest as much as you need to after you go home. You should be able to go back to your usual activities the day after the test. Diet Follow your doctor s directions for eating. Drink plenty of fluids (unless your doctor has told you not to) to replace the fluids that were lost during the colon prep. Do not drink alcohol. Medicines If polyps were removed or a biopsy was done during the test, your doctor may tell you not to take aspirin or other anti-inflammatory medicines, such as ibuprofen (Advil, Motrin) and naproxen (Aleve), for a few days. Other instructions For your safety, you should not drive or operate machinery until the medicine effects are gone and you can think clearly. Your doctor may tell you not to drive or operate machinery until the day after your test. Do not sign legal documents or make major decisions until the medicine effects are gone and you can think clearly. The anesthesia medicine can make it hard for you to fully understand what you are agreeing to. Follow-up care is a guerrero part of your treatment and safety. Be sure to make and go to all appointments, and call your doctor if you are having problems. It's also a good idea to know your test results and keep a list of the medicines you take. Call your Doctor if you have any of the following: Passing blood rectally or vomiting blood (it may be red or black). Persistent nausea or vomiting. Severe abdominal or chest pain, not relieved by passing gas. Fever of 100 or more, chills or excessive sweating. Redness or swelling at the IV site. If you experience shortness of breath or severe chest pain, call 911. Where can you learn more? Go to [email or web address] and sign in to your [employer] account. Enter E264 in the Search Health Information box to learn more about Colonoscopy: What to Expect at Home. If you do not have an account, please click on the Sign Up Now link. [employer]. Care instructions adapted under license by [employer]. This care instruction is for use with your licensed healthcare professional. If you have questions about a medical condition or this instruction, always ask your healthcare professional. [employer] disclaims any warranty or liability for your use of this information. Content Version: [id number]; Last Revised: August 15, 2012 The following attachments cannot be sent through Care Everywhere.Crohn's Disease (Indonesian)Colitis: General Info (Indonesian)documented in this encounter [facility] [employer] Work Phone: 03-11-2022 History of Presen t illness Narrative Patient has appt. With infusion center after colonoscopy , IV capped, maitain access for infusion center Dr. Mitchell called , patient prep appearance watery brown with several stool partials, advised to talk to patient she can either reschedule or attempt colonoscopy today, patient has decided to go ahead with colonoscopy, UCG negative documented in this encounter [facility] Phone: 01-14-2022 History of Presen t illness Narrative Pt arrived for Remicade infusion. Vitals obtained and labs drawn. PIV started in L hand. Infusion started at 904, titrated per protocol, and ended at 1125. Pt tolerated well. No s/s adverse reaction noted. Vitals remained stable as charted. PIV removed. Pt discharged home, ambulatory per self. documented in this encounter [facility] Phone: 03-05-2021 History of Presen t illness Narrative Pt arrived for Inflectra infusion. Vitals obtained and labs drawn. PIV started in R hand. Premeds given. Infusion started at 10:03, titrated per protocol, and ended at 12:31. Pt tolerated well. No s/s adverse reaction noted. Vitals remained stable as charted. PIV removed. Pt discharged home, ambulatory per self. documented in this encounter [employer] Phone: 02-05-2021 History of Presen t illness Narrative Pt arrived for Inflectra infusion. Vitals obtained and labs drawn. PIV started in L AC. Infusion started at 10:40, titrated per protocol, and ended at 12:04. Pt tolerated well. No s/s adverse reaction noted. Vitals remained stable as charted. PIV removed. Pt discharged home, ambulatory per self. documented in this encounter [employer] Phone: Evaluation note Diagnosis Crohn's disease of both small and large intestine without complication (HCC) Regional enteritis of small intestine with large intestine documented in this encounter [employer] Phone: evaluation note* Diagnosis CC (Crohn's colitis), without complications (HCC)- Primary Ulcerative colitis with complication, unspecified location (HCC) documented in this encounter [employer] Phone: evaluation note* Diagnosis CC (Crohn's colitis), without complications (HCC)- Primary Ulcerative colitis with complication, unspecified location (HCC) Crohn's disease of both small and large intestine without complication (HCC) Regional enteritis of small intestine with large intestine Crohn's disease of small and large intestines with complication (HCC) documented in this encounter [facility] Phone: evaluation note* Diagnosis Crohn's disease of small and large intestines with complication (HCC) documented in this encounter [facility] Phone: evaluation note* Diagnosis CC (Crohn's colitis), without complications (HCC)- Primary Ulcerative colitis with complication, unspecified location (HCC) documented in this encounter [employer] Phone: evaluation note* Diagnosis CC (Crohn's colitis), without complications (HCC)- Primary Ulcerative colitis with complication, unspecified location (HCC) documented in this encounter [employer] Phone: evaluation note* Diagnosis CC (Crohn's colitis), without complications (HCC)- Primary Ulcerative colitis with complication, unspecified location (HCC) documented in this encounter [employer] Phone: evaluation note* Diagnosis CC (Crohn's colitis), without complications (HCC)- Primary Ulcerative colitis with complication, unspecified location (HCC) documented in this encounter [employer] Phone: evaluation note* Diagnosis CC (Crohn's colitis), without complications (HCC)- Primary Ulcerative colitis with complication, unspecified location (HCC) documented in this encounter [employer] Phone: evaluation note* Diagnosis Ulcerative colitis with complication, unspecified location (HCC)- Primary CC (Crohn's colitis), without complications (HCC) Crohn's disease of both small and large intestine without complication (HCC) Regional enteritis of small intestine with large intestine documented in this encounter [facility] Diagnosis Seasonal allergic rhinitis due to pollen- Primary Allergic rhinitis due to dust mite Adverse reaction to food, initial encounter Adverse reaction to drug, initial encounter documented [facility] this [facility] Diagnosis Vulvar lesion- Primary Other specified noninflammatory disorder of vulva and perineum Screen for STD (sexually transmitted disease) Screening examination for venereal disease documented in this encounter [facility]* Diagnosis BV (bacterial vaginosis)- Primary Unspecified vaginitis and vulvovaginitis documented [facility] Attachments The following attachments cannot be sent through Care Everywhere. * STD Prevention (Indonesian) * Control Options (Indonesian) [facility]Not on file documented in this encounterPro[facility] SystemInstructionsNot on file documented in this encounterProJoint [facility] SystemReason for visit Narrative* Treatment Plan (Routine) Status Reason Specialty Diagnoses / Procedures Re ferred By Contact Referred To Contact Authorized Diagnoses Ulcerative colitis with complication, unspecified location (HCC) CC (Crohn's colitis), without complications (HCC) Procedures IN INJECTION, INFLECTRA FrankiguluCatrachita flores MD [address] [place] [address] [facility] [address] [place] [address] [employer] Phone: reason for visit Narrative* Treatment Plan (Routine) Status Reason Specialty Diagnoses / Procedures Referred By Contact Referred To Contact Pending Review Diagnoses Ulcerative colitis with complication, unspecified location (HCC) CC (Crohn's colitis), without complications (HCC) Procedures IN INJECTION, INFLECTCatrachita Borrego MD [facility] [place] [address] [facility] [address] [place] [address] [employer] Phone: reason for visit Narrative* Treatment Plan and Therapy Plan (Routine) - Authorized Specialty Diagnoses / Procedures Referred By Esther wilson Referred To Contact Diagnoses Ulcerative colitis with complication, unspecified location (HCC) CC (Crohn's colitis), without complications (HCC) Procedures IN INJECTION, INFLECTRA IN IV INFUSION, THERAP/PROPH/DIAGNOST,INITIAL ,1ST HOUR Catrachita Mitchell MD [address] [facility] [address] [place] [address] [facility] [address] [place] [address] Referral ID Status Reason Start Date Expiration Date V isits Requested Visits Authorized [id number] Authorized 10/19/2021 10/19/2022 99 99 BELÉN FINNEY [facility] Phone: Summary Purpose Family History No Family History Records FoundNo Family History Records FoundNo Family History Records FoundNo Family History Records Found Advance Directives No Advanced Directives Records FoundNo Advanced Directives Records FoundNo Advanced Directives Records FoundNo Advanced Directives Records Found Discharge Instructions * Instructions* Blossom Rodriguez - 05/01/2020 To see in the office in the next week EGD DISCHARGE INSTRUCTIONS Activity: Rest today. No driving, operating machinery, or making any important decisions today. May resume normal activity tomorrow. Diet: Following EGD eat slowly, chew food well, cut food into small pieces-Avoid greasy, spicy, crunchy foods X 48 hours. Call your Doctor if you have any of the following: -Passing blood rectally or vomiting blood (it may be red or black). -Persistent nausea/vomiting -Severe abdominal or chest pain not relieved with passing gas -Fever of 100 degrees or more -Redness or swelling at the IV site -Severe sore throat or neck pain Colonoscopy: What to Expect at Home Your Recovery After you have a colonoscopy, you will stay at the clinic for 1 to 2 hours until the medicines wearoff. Then you can go home, but you will need to arrange for a ride. Your doctor will tell you when you can eat and do your other usual activities. Your doctor will talk to you about when you will need your next colonoscopy. The results of your test and your risk for colorectal cancer will help your doctor decide how often you need to be checked. After the test, you may be bloated or have gas pains. You may need to pass gas. If a biopsy was done or a polyp was removed, you may have streaks of blood in your stool (feces) for a few days. This care sheet gives you a general idea about how long it will take for you to recover. But each person recovers at a different pace. Follow the steps below to get better as quickly as possible. How can you care for yourself at home? Activity Rest as much as you need to after you go home. You should be able to go back to your usual activities the day after the test. Diet Follow your doctor s directions for eating. Drink plenty of fluids (unless your doctor has told you not to) to replace the fluids that were lost during the colon prep. Do not drink alcohol. Medicines If polyps were removed or a biopsy was done during the test, your doctor may tell you not to take aspirin or other anti-inflammatory medicines, such as ibuprofen (Advil, Motrin) and naproxen (Aleve),for a few days. Other instructions For your safety, you should not drive or operate machinery until the medicine effects are gone and you can think clearly. Your doctor may tell you not to drive or operate machinery until the day after your test. Do not sign legal documents or make major decisions until the medicine effects are gone and you canthink clearly. The anesthesia medicine can make it hard for you to fully understand what you are agreeing to. Follow-up care is a guerrero part of your treatment and safety. Be sure to make and go to all appointments, and call your doctor if you are having problems. It's also a good idea to know your test resultsand keep a list of the medicines you take. Call your Doctor if you have any of the following: Passing blood rectally or vomiting blood (it may be red or black). Persistent nausea or vomiting. Severe abdominal or chest pain, not relieved by passing gas. Fever of 100 or more, chills or excessive sweating. Redness or swelling at the IV site. If you experience shortness of breath or severe chest pain, call 911. Where can you learn more? Go to [email or web address] and sign in to your [employer] account. Enter E264 in the Search Health Information box to learn more about Colonoscopy: What to Expect at Home. If you do not have an account, please click on the Sign Up Now link. [employer]. Care instructions adapted under license by [facility]. This care instruction is for use with your licensed healthcare professional. If you have questions about a medical condition or this instruction, always ask your healthcare professional. [employer] disclaims any warranty or liability for your use of this information. Content Version: 9.9.435903; Last Revised: August 15, 2012 Sedation or General Anesthesia, Adult Care After Refer to this sheet in the next 24 hours. These instructions provide you with information on caringfor yourself after your procedure. Your caregiver may also give you more specific instructions. Your treatment has been planned according to current medical practices, but problems sometimes occur. Call your caregiver if you have any problems or questions after your procedure. HOME CARE INSTRUCTIONS Do not participate in any activities that require you to be alert or coordinated. Do not: Drive. Swim. Ride a bicycle. Operate heavy machinery. Cook. Use power tools. Climb ladders. Work at heights. Take a bath. Do not drink alcohol. Do not make any important decisions or sign legal documents. Stay with an adult. The first meal following your procedure should be light and small. Avoid solid foods if you feel sick to your stomach (nauseous) or if you throw up (vomit). Drink enough fluids to keep your urine clear or pale yellow. Only take your usual medicines or new medicines if your caregiver approves them. Only take [id number] or prescription medicines for pain, discomfort, or fever as directed by your caregiver. Keep all follow-up appointments as directed by your caregiver. SEEK IMMEDIATE MEDICAL CARE IF: You are not feeling normal or behaving normally after 24 hours. You have persistent nausea and vomiting. You are unable to drink fluids or eat food. You have difficulty urinating. You have difficulty breathing or speaking. You have blue or bauer skin. There is difficulty waking or you cannot be woken up. You have heavy bleeding, redness, or a lot of swelling where the sedative or anesthesia entered your skin (intravenous site). You have a rash. MAKE SURE YOU: Understand these instructions. Will watch your condition. Will get help right away if you are not doing well or get worse. Document Released: 06/12/2006 Document Revised: 12/11/2012 Document Reviewed: 10/10/2012 ExitCare Patient Information 2013 [employer]. documented in this encounter History of Present Illness * Steph Tinoco RN - 05/01/2020 8:49 AM EST Urine negative documented in this encounter Reason for Referral Status Reason Specialty Diagnoses / Procedures Referre d By Contact Referred To Contact Closed Radiology Diagnoses Crohn's disease of both small and large intestine without complication (HCC) Procedures MRI ENTEROGRAPHY Catrachita Mitchell MD [address], [facility] [address] [place] [address] Additional Source Comments INFORMATION SOURCE (unrecogn ized section and content) DATE CREATED AUTHOR 01/23/2018 [facility] DATE CREATED AUTHOR AUTHOR'S ORGANIZ ATION 08/13/2023 [facility] DATE CREATED AUTHOR AUTHOR'S ORGANIZ ATION 09/30/2023 [facility] DATE CREATED AUTHOR AUTHOR'S ORGANIZ ATION 10/22/2023 [facility] Reason for Visit (unrecogniz ed section and content) Status Reason Specialty Diagnoses / Procedures Re ferred By Contact Referred To Contact Diagnoses Ulcerative colitis with complication (HCC) ULCERATIVE COLITIS W/COMPLICATION (PAT ON ADMIT PER ANES) COVID TEST BEING DONE @ [facility] Procedures IN ESOPHAGOGASTRODUODENOSCOPY TRANSORAL DIAGNOSTIC IN COLONOSCOPY FLX DX W/COLLJ SPEC WHEN PFRMD EGD ESOPHAGOGASTRODUODENOSCOPY COLONOSCOPY DIAGNOSTIC PanguluCatrachita flores MD [address], [facility] [address] [place] [address] [facility] Status Reason Specialty Diagnoses / Procedures Referre d By Contact Referred To Contact Closed Radiology Diagnoses Crohn's disease of both small and large intestine without complication (HCC) Procedures MRI ENTEROGRAPHY Catrachita Mitchell MD [address], [facility] [address] [place] [address] Specialty Diagnoses / Procedures Referred By Contac t Referred To Contact Diagnoses Crohn's disease of small and large intestines with complication (HCC) CROHNS DISEASE Procedures IN COLONOSCOPY FLX DX W/COLLJ SPEC WHEN PFRMD IN COLONOSCOPY W/BIOPSY SINGLE/MULTIPLE IN COLSC FLX W/RMVL OF TUMOR POLYP LESION SNARE TQ COLONOSCOPY DIAGNOSTIC Panguharshar, Catrachita Ramirez MD [address], [facility] [address] [place] [address] [employer] [address] [place] [address] Referral ID Status Reason Start Date Expiration Date Visits Re quested Visits Authorized [id number] 1 1 Specialty Diagnoses / Procedures Referred By Contac t Referred To Contact Diagnoses Ulcerative colitis, unspecified with unspecified complications Crohn's disease of large intestine without complications Procedures IN INJECTION, INFLECTRA [facility] [address] [place] [address] [employer] [address] [place] [address] Referral ID Status Reason Start Date Expiration Date Visits Re quested Visits Authorized [id number] 1 1 Specialty Diagnoses / Procedures Referred By Contac t Referred To Contact Diagnoses Ulcerative colitis, unspecified with unspecified complications Crohn's disease of large intestine without complications Procedures IN INJECTION, INFLECTRA [facility] [address] [place] [address] [employer] [address] [place] [address] Specialty Diagnoses / Procedures Referred By Contac t Referred To Contact Diagnoses Ulcerative colitis, unspecified with unspecified complications Crohn's disease of large intestine without complications Procedures IN INJECTION, INFLECTRA [facility] [address] [place] [address] [employer] [address] [place] [address] Reason Comments New Patient Seafood allergy-danitza ent had reaction to shrimp on new year's carolina symptoms included lower left chin area was swollen, top upper lip was swollen as well patient took a benadryl and symptoms last about an hour. 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 Specialty Start Date End Date Yohana Waldron [address] [place] [address] PCP - General Family Medicine 04/17/20 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 Relationship Specialty Start Date End Date Yohana Waldron [address] [place] [address] PCP - General Family Medicine 04/17/20 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 Relationship Specialty Start Date End Date Yohana Waldron [address] [place] [address] PCP - General Family Medicine 04/17/20 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 Relationship Specialty Start Date End Date Yohana Waldron [address] [place] [address] PCP - General Family Medicine 04/17/20 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 Relationship Specialty Start Date End Date Yohana Waldron [address] [place] [address] PCP - General Family Medicine 04/17/20 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 Relationship 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 Start Date End Date Yohana Waldron [address] [place] [address] PCP - General Family Medicine 04/17/20 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 Relationship 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 Start Date End Date No Pcp, [place] [address] PCP - General Family Medicine 03/25/19 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 Relationship Specialty Start Date End Date No Pcp, [place] [address] PCP - General Family Medicine 03/25/19 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 If following IV push medication, administer flush at same rate as the IV push. Flush volume is determined by type of infusion therapy being given. For non-viscous solutions use: Peripheral IV = 5 mL Midline or Central Line = 10 mL/lumen For viscous solutions (i.e. blood components, parenteral nutrition, contrast media, or after obtaining blood sample) use: Peripheral IV = 10 mL Midline or Central Line = 20 mL/lumen, Pre-op (day of surgery) 0900 (Due)2099 (Due) sodium chloride flush 0.9 % injection 5-40 mL 5-40 mL, IntraVENous, EVERY 12 HOURS SCHEDULED (2 times per day), First dose on Mon03/11/22 at 0900, Until Discontinued, For Line Patency: Peripheral IV = 5 mL; Midline or Central Line = 10 mL/lumen. If following IV push medication, administer flush at same rate as the IV push. Flush volume is determined by type of infusion therapy being given. For non-viscous solutions use: Peripheral IV = 5 mL Midline or Central Line = 10 mL/lumen For viscous solutions (i.e. blood components, parenteral nutrition, contrast media, or after obtaining blood sample) use: Peripheral IV = 10 mL Midline or Central Line = 20 mL/lumen, PACU only 0900 (Due)2100 (Due) Continuous Medication Order 03/09/2022 03/10/2022 03/11/2022 lactated ringers infusion IntraVENous, at 125 mL/hr, CONTINUOUS, Starting on Mon03/11/22 at 0600, Pre-op (day of surgery) 0727 (New Bag - Prov ider: TIANA Simon CRNA)0737 (Stopped - Provider: TIANA Simon CRNA)0825 (Stopped - Provider: Melia Nazario RN) PRN Medication Order 03/09/2022 03/10/2022 03/11/2022 0.9 % sodium chloride infusion IntraVENous, at 5-250 mL/hr, PRN, if patient receiving piggyback infusions and maintenance fluids are not ordered OR KVO fluids to protect IV site / prevent frequent line interruptions/ long duration, Starting on Mon03/11/22 at 0537, For piggyback infusion, administer at same rate as piggyback for a total of 25 mL. Enter 25 mL into dose field and piggyback rate into rate field of order. If piggyback is infusing at a rate less than 100 mL/hr, enter 25 mL into dose field and 100 mL/hr into rate field of order. For KVO fluids, enter rate of 20 mL/hr or less into rate field of order., Pre-op (day of surgery) 0.9 % sodium chloride infusion IntraVENous, at 5-250 mL/hr, PRN, if patient receiving piggyback infusions and maintenance fluids are not ordered OR KVO fluids to protect IV site / prevent frequent line interruptions/ long duration, Starting on Mon03/11/22 at 0741, For piggyback infusion, administer at same rate as piggyback for a total of 25 mL. Enter 25 mL into dose field and piggyback rate into rate field of order. If piggyback is infusing at a rate less than 100 mL/hr, enter 25 mL into dose field and 100 mL/hr into rate field of order. For KVO fluids, enter rate of 20 mL/hr or less into rate field of order., PACU only diphenhydrAMINE (BENADRYL) injection 12.5 mg 12.5 mg, IntraVENous, ONCE PRN, 1 dose, Starting on Mon03/11/22 at 0741, Until Mon03/11/22 at 2359, Itching, PACU only fentaNYL (SUBLIMAZE) injection 25 mcg 25 mcg, IntraVENous, EVERY 5 MIN PRN, 4 doses, Starting on Mon03/11/22 at 0741, Until Discontinued, Pain Moderate (4-6), Phase I - Initial therapy for moderate pain., PACU only HYDROmorphone (DILAUDID) injection 0.5 mg HYDROmorphone (DILAUDID) 1.5mg IV is equivalent to morphine 10mg IV, 0.5 mg, IntraVENous, EVERY 5 MIN PRN, 4 doses, Starting on Mon03/11/22 at 0741, Until Discontinued, Pain Severe (7-10), Phase I - Initial therapy for severe pain., PACU only lidocaine PF 1 % injection 1 mL 1 mL, IntraDERmal, ONCE PRN, 1 dose, Starting on Mon03/11/22 at 0537, Until Mon03/11/22 at 2359, IV start, Pre-op (day of surgery) metoclopramide (REGLAN) injection 10 mg 10 mg, IntraVENous, ONCE PRN, 1 dose, Starting on Mon03/11/22 at 0741, Until Mon03/11/22 at 2359, Nausea, Secondary antiemetic therapy., PACU only ondansetron (ZOFRAN) injection 4 mg 4 mg, IntraVENous, ONCE PRN, 1 dose, Starting on Mon03/11/22 at 0741, Until Mon03/11/22 at 2359, Nausea, Initial antiemetic therapy., PACU only sodium chloride flush 0.9 % injection 5-40 mL 5-40 mL, IntraVENous, PRN, Starting on Mon03/11/22 at 0537, Until Discontinued, Line Care, After every IV line use, For Line Patency: Peripheral IV = 5 mL; Midline or Central Line = 10 mL/lumen. If following IV push medication, administer flush at same rate as the IV push. Flush volume is determined by type of infusion therapy being given. For non-viscous solutions use: Peripheral IV = 5 mL Midline or Central Line = 10 mL/lumen For viscous solutions (i.e. blood components, parenteral nutrition, contrast media, or after obtaining blood sample) use: Peripheral IV = 10 mL Midline or Central Line = 20 mL/lumen, Pre-op (day of surgery) sodium chloride flush 0.9 % injection 5-40 mL 5-40 mL, IntraVENous, PRN, Starting on Mon03/11/22 at 0741, Until Discontinued, Line Care, After every IV line use, For Line Patency: Peripheral IV = 5 mL; Midline or Central Line = 10 mL/lumen. If following IV push medication, administer flush at same rate as the IV push. Flush volume is determined by type of infusion therapy being given. For non-viscous solutions use: Peripheral IV = 5 mL Midline or Central Line = 10 mL/lumen For viscous solutions (i.e. blood components, parenteral nutrition, contrast media, or after obtaining blood sample) use: Peripheral IV = 10 mL Midline or Central Line = 20 mL/lumen, PACU only FOR RECORDS PERTAINING TO PATIENTS WHO ARE OR HAVE BEEN ENROLLED IN A CHEMICAL DEPENDENCY/SUBSTANCEABUSE PROGRAM, SOME INFORMATION MAY BE OMITTED. This clinical summary was aggregated from multiple sources. Caution should be exercised in using it in the provision of clinical care. This summary normalizes information from multiple sources, and as a consequence, information in this document may materially change the coding, format and clinical context of patient data. In addition, data may be omitted in some cases. CLINICAL DECISIONS SHOULD BE BASED ON THE PRIMARY CLINICAL RECORDS. [email or web address]. provides no warranty or guarantee of the accuracy or completeness of information in this document.
[2025-03-21 09:35] LABS: Hematocrit 42.2 % (36.0-48.0); Hemoglobin 14.2 g/dL (12.0-16.0); Immature Granulocytes Abs Auto 0.00 10^3/uL (0.00-0.03); Immature Granulocytes Pct Auto 0.0 % (0.0-0.5); Lymphocytes Absolute Auto 1.4 10^3/uL (1.2-3.8); Mean Corpuscular HGB Conc 33.6 g/dL (29.9-35.2); Mean Corpuscular Hemoglobin 30.7 pg (26.7-34.0); Mean Corpuscular Volume 91.1 fL (81.0-99.0); Platelet Count 262 10^3/uL (150-450); Red Blood Count 4.63 10^6/uL (4.20-5.40); White Blood Count 3.9 10^3/uL (4.0-11.0)
[2025-03-21 09:48] LABS: Alanine Aminotransferase 15 U/L (14-59); Albumin Globulin Ratio 0.9; Albumin Level 3.9 g/dL (3.4-5.0); Alkaline Phosphatase 61 U/L (46-116); Anion Gap 9.7; Aspartate Amino Transferase 21 U/L (15-37); Blood Urea Nitrogen 13.0 mg/dL (7.0-18.0); Carbon Dioxide 30.9 mmol/L (21.0-32.0); Chloride 106 mmol/L (98-107); Estimated GFR (African America >60 (>=60 mL/min/1.73m^2); Estimated GFR (Non-African Ame >60 (>=60 mL/min/1.73m^2); Globulin 4.4 g/dL; Potassium 4.6 mmol/L (3.5-5.1); Sodium 142 mmol/L (136-145); Total Protein 8.3 g/dL (6.4-8.2)
== END 2025-03-21 09:04 | disposition home or self-care (01) ==
PROVIDERS: PCP Family Medicine
DX: K50.80 Crohn's disease of both small and large intestine without complications (principal); R63.4 Abnormal weight loss; R87.610 Atypical squamous cells of undetermined significance on cytologic smear of cervix (ASC-US); R87.810 Cervical 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 papillomavirus (HPV) DNA test positive
CPT/HCPCS: 36415; 80051; 80076; 82565; 84520; 85025